=== PATIENT | male | born 1930 | race Caucasian/White ===

== ENCOUNTER 2017-04-01 12:33 | Inpatient (IN) | payer OTHER ==
[2017-04-01] MEDS ORDERED: SODIUM CHLORIDE 500 ML IV STA ×2 (12:59→15:38)
[2017-04-01] MEDS ORDERED: ACETAMINOPHEN 325 MG TABLET (FP) PO ONE (13:11)
--- NOTE | 2017-04-01 13:13 | PDOC ---
History of Present Illness <Corby Bolivar - Last Filed: 04/01/17 18:10> - General History Source: Patient Exam Limitations: No Limitations - History of Present Illness Initial Comments: 04/01/17 18:37 The patient is an 86 year old male, with a significant past medical history of hypertension, hyperlipidemia, enlarged prostate, and heart disease, who presents to the emergency department s/p unwitnessed mechanical fall earlier today. The patient reports he was sitting on the toilet urinating, but after getting up and beginning to walk, he felt alittle dizzy and felt like his legs gave out from under him and he fell and hit his right shoulder on the tub. The patient denies any head trauma or LOC. He reports associated back and shoulder pain. When he got up he reports he felt dizzy. He denies any chest pain, shortness of breath, diaphoresis, palpitations, numbness, or paresthesias. He denies any dysuria, hematuria, frequency, or urgency. He denies any abdominal pain, nausea, vomiting, diarrhea, or constipation. He denies fever, chills, cough, or headache. He denies any recent travel or sick contacts. On 81 mg aspirin daily. Pt endorsed feeling weak for the past few months, so much so that when he walks in his house he needs to use a walker. Allergies: None reported. Past Surgical History: Prostate surgery Social History: Lives at home alone. Former smoker. No ETOH or drug use. PCP: Dr. Marcano Urologist: Dr. Barr <Annie Doty - Last Filed: 04/01/17 18:39> - General Chief Complaint: Injury Stated Complaint: FALL Time Seen by Provider: 04/01/17 12:50 Past History - Past Medical History HTN: Yes Hypercholesterolemia: Yes - Psycho/Social/Smoking Cessation Hx Anxiety: No Suicidal Ideation: No Smoking History: Former smoker Have you smoked in the past 12 months: No Information on smoking cessation initiated: No Hx Alcohol Use: No Drug/Substance Use Hx: No Substance Use Type: None <Corby Bolivar - Last Filed: 04/01/17 18:10> <Annie Doty - Last Filed: 04/01/17 18:39> - Past Medical History Allergies/Adverse Reactions: Allergies Allergy/AdvReac Type Severity Reaction Status Date / Time No Known Allergies Allergy Verified 04/01/17 12:47 Home Medications: Ambulatory Orders Aspirin [ASA -] 81 mg PO DAILY 04/01/17 Atorvastatin Ca [Lipitor] 10 mg PO HS 04/01/17 Cholecalciferol (Vitamin D3) [Vitamin D3 -] 1,000 unit PO DAILY 04/01/17 Metoprolol Tartrate 50 mg PO BID 04/01/17 Quinapril HCl [Accupril] 5 mg PO DAILY 04/01/17 Review of Systems - Review of Systems Able to Perform ROS?: Yes Comments:: 04/01/17 18:38 CONSTITUTIONAL: No reported: Fever, Chills, Diaphoresis, Generalized Weakness, Malaise, Loss of Appetite HEENT: No reported: Rhinorrhea, Nasal Congestion, Throat Pain, Throat Swelling, Difficulty Swallowing, Mouth Swelling, Ear Pain, Eye Pain, Visual Changes CARDIOVASCULAR: No reported: Chest Pain, Syncope, Palpitations, Irregular Heart Rate, Lightheadedness, Peripheral Edema RESPIRATORY: No reported: Cough, Shortness of Breath, SOB with Exertion, Orthopnea, Wheezing , Stridor, Hemoptysis GASTROINTESTINAL: No reported: Abdominal pain, Abdominal Distension, Nausea, Vomiting, Diarrhea, Constipation, Melena, Hematochezia GENITOURINARY: No reported: Dysuria, Frequency, Urgency, Hesitancy, Flank Pain, Genital Pain MUSCULOSKELETAL: Present: +lower and thoracic back pain, +leg weakness No reported: Myalgia, Arthralgia, Joint Swelling, Back pain, Neck Pain SKIN: No reported: Rash, Itching, Pallor HEMEATOLOGIC/IMMUNOLOGIC: No reported: Easy Bleeding, Easy Bruising, Lymphadenopathy, Frequent infections ENDOCRINE: No reported: Unexplained Weight Gain, Unexplained Weight Loss, Heat Intolerance , Cold Intolerance NEUROLOGIC: Present: +leg weakness No reported: Headache, Focal Weakness, Paresthesias, Vertigo, Lightheadedness, Unsteady Gait, Seizure, Mental Status Changes, Incontinence PSYCHIATRIC: No reported: Anxiety, Depression <Annie Doty - Last Filed: 04/01/17 18:39> *Physical Exam - Vital Signs Last Vital Signs Temp Pulse Resp BP Pulse Ox 99.2 F 116 H 20 154/95 96 04/01/17 12:48 04/01/17 12:48 04/01/17 12:48 04/01/17 12:48 04/01/17 12:48 <Osmel,Corby - Last Filed: 04/01/17 18:10> - Vital Signs Last Vital Signs Temp Pulse Resp BP Pulse Ox 99.2 F 116 H 20 154/95 96 04/01/17 12:48 04/01/17 12:48 04/01/17 12:48 04/01/17 12:48 04/01/17 12:48 - Physical Exam Comments: 04/01/17 18:38 GENERAL: The patient is awake, alert, and fully oriented, Nontoxic - in no acute distress. HEAD: Normocephalic, atraumatic.no focal tenderness, no battles sign. EYES: extraocular movements intact, sclera anicteric, conjunctiva clear. ENT: Normal voice, dryt mucous membranes. NECK: Normal range of motion, supple, no tenderness in midline cervical throacic lumbar region LUNGS: Breath sounds equal, clear to auscultation bilaterally. No wheezes, no rhonchi, no rales. HEART: tachycardic ABDOMEN: Soft, nontender, normoactive bowel sounds. No guarding, no rebound. . No CVA tenderness BACK: No focal midline bony cerivical/lumbar tenderness, mild tenderness noted in the mid thoracic approx T8/T9 region and paraspsinally in the L lower back EXTREMITIES: Normal range of motion of all extremities. no edema. No clubbing or cyanosis. No cords, erythema, or tenderness. NEUROLOGICAL: No facial assymetry, Normal speech, moving all 4 extremities spontaneously and symmetrically PSYCH: Normal mood, normal affect. SKIN: Warm, Dry, normal turgor. <Doty,Giomilsy - Last Filed: 04/01/17 18:39> ED Treatment Course - LABORATORY CBC & Chemistry Diagram: 04/01/17 13:45 04/01/17 13:45 - RADIOLOGY Radiology Studies Ordered: Category Date Time Status SPINE-LUMBAR SACRAL [RAD] Stat Radiology 04/01/17 13:11 Ordered SPINE-THORACIC [RAD] Stat Radiology 04/01/17 13:11 Ordered <Osmel,Corby - Last Filed: 04/01/17 18:10> - LABORATORY CBC & Chemistry Diagram: 04/01/17 13:45 04/01/17 13:45 - ADDITIONAL ORDERS Additional order review: Laboratory Results 04/01/17 04/01/17 13:45 13:45 Sodium 141 Potassium 4.6 Chloride 103 Carbon Dioxide 29 Anion Gap 9 BUN 19 H Creatinine 1.5 H Creat Clearance w eGFR 44.59 Random Glucose 110 H Calcium 9.8 Total Bilirubin 0.8 AST 21 ALT 34 Alkaline Phosphatase 80 Creatine Kinase Cancelled 105 Troponin I Cancelled 0.02 Total Protein 7.5 Albumin 3.9 04/01/17 13:45 RBC 4.76 MCV 91.7 MCHC 33.8 RDW 13.9 MPV 8.1 Neutrophils % 84.8 H Lymphocytes % 7.9 L Monocytes % 6.8 Eosinophils % 0.2 Basophils % 0.3 - RADIOLOGY Radiograph Interpretation: 04/01/17 18:23 EXAM: X-Ray Lumbar Spine INTERPRETED BY: Dr. Hendricks REVIEWED BY: Dr. Bolivar IMPRESSION: Degenerative changes with wedging. Vascular calcifications. Normal lordosis. EXAM: X-Ray Thoracic Spine INTERPRETED BY: Dr. Hendricks REVIEWED BY: Dr. Bolivar IMPRESSION: Degenerative changes with wedging. Scoliosis - Medications Given in the ED: ED Medications Discontinued Medications Generic Name Dose Route Start Last Admin Trade Name Freq PRN Reason Stop Dose Admin Acetaminophen 650 mg 04/01/17 13:11 04/01/17 14:08 Tylenol - PO 04/01/17 13:12 650 mg ONCE ONE Administration Sodium Chloride 500 mls @ 500 mls/hr 04/01/17 12:59 04/01/17 14:08 Normal Saline - IV 04/01/17 13:58 500 mls/hr ASDIR STA Administration <Annie Doty - Last Filed: 04/01/17 18:39> Medical Decision Making - Medical Decision Making 04/01/17 13:14 86y M hx of htn, hl, cad presents with fall. The pt states he was well this morning, he went to the bathroom and aftewards stood up and fell, hitting his back on the tub complaining of lower and thoracic back pain w/o associated numbness/tingling weakness. 04/01/17 16:06 pt endorses feeling very weak and has been going on for many months, so much that he only gets around with a walker denies any headache, vertigo, n/v, back pain when attempting to stand, the pt is unabel to ambulate, and even stand unassisted pt seemed unable to stand steadily ?propcioception vs cerbellar? pt does have mild b/l LE weakness (~4/5) and is symmetric. pts finger/nose is a bit unsteady likely due to general weakness vs. cerebellar infarct, normal rapid alternating movements and heel/toe. will obtain CT head to r/o intracranial pathology will likely need admission fo further anagement and possible rehab pt lives alone and is an unsafe discharge his labs notable for luekocytosis and left shift awaiting UA to r/o uti cr noted slightly elevated, likely secondary to dehdration will notifiy dr. marcano for admission his HR is improved, currently 96 onmonitor Case discussed in detail with admitting physician including history, physical exam and ancillary studies. Admitting physician has assumed care for the patient, will follow all pending diagnostics and will complete the evaluation and treatment. A portion of this note was documented by scribe services under my direction. I have reviewed the details of the note, within reason, and agree with the documentation with the following case summary and management plan written by me <Corby Bolivar - Last Filed: 04/01/17 18:10> - Medical Decision Making 04/01/17 16:11 First call placed to Dr. Marcano at 16:12. Awaiting call back. Second call placed to Dr. Marcano at 16:39. Awaiting call back. Case discussed with Dr. Marcano at 16:42. <Annie Doty - Last Filed: 04/01/17 18:39> *DC/Admit/Observation/Transfer - Discharge Dispostion Admit: Yes <Corby Bolivar - Last Filed: 04/01/17 18:10> - Attestations Scribe Attestion: 04/01/17 18:39 Documentation prepared by Annie Doty, acting as medical assisting instructor for Corby Bolivar MD. <Annie Doty - Last Filed: 04/01/17 18:39> Diagnosis at time of Disposition: Weakness, Dehydration, Unable to ambulate - Referrals
[2017-04-01 14:06] LABS: BASOPHIL 0.3 % (0-2.0); EOSINOPHIL 0.2 % (0-4.5); MCHC 33.8 g/dl (32.0-35.9); MEAN CELL VOLUME 91.7 fl (80-96); MEAN PLT VOLUME 8.1 fl (7.5-11.1); NEUTROPHILS 84.8 % (42.8-82.8); PLATELET COUNT 182 K/MM3 (134-434); RDW 13.9 % (11.9-15.9); WHITE BLOOD COUNT 17.2 K/mm3 (4.0-10.0)
[2017-04-01] MEDS ORDERED: ACETAMINOPHEN 325 MG TABLET (FP) ONE (14:09)
[2017-04-01 14:26] LABS: ALBUMIN 3.9 g/dl (3.4-5.0); ANION GAP 9 (8-16); BILIRUBIN,TOTAL 0.8 mg/dL (0.2-1.0); CALCIUM 9.8 mg/dL (8.5-10.1); CO2 29 mmol/L (21-32); CREATININE 1.5 mg/dL (0.7-1.3); GLUCOSE,RANDOM 110 mg/dL (74-106); SGOT/AST 21 U/L (15-37); SGPT/ALT 34 U/L (12-78); TOT PROT 7.5 g/dl (6.4-8.2)
[2017-04-01 14:29] LABS: ALK PHOS 80 U/L (45-117); TROPONIN I 0.02 ng/ml (0.00-0.05)
[2017-04-01 21:28] LABS: URINE APPEARANCE CLEAR; URINE BILIRUBIN NEGATIVE (NEGATIVE); URINE BLOOD NEGATIVE (NEGATIVE); URINE COLOR STRAW; URINE GLUCOSE (UA) NEGATIVE (NEGATIVE); URINE KETONE NEGATIVE (NEGATIVE); URINE LEUK ESTERASE NEGATIVE (NEGATIVE); URINE NITRITE NEGATIVE (NEGATIVE); URINE PROTEIN NEGATIVE (NEGATIVE); URINE UROBILINOGEN NEGATIVE E.U./dl (0.2-1.0)
[2017-04-01] MEDS ORDERED: HEPARIN NA (PORCINE) 5,000 UNITS/ML 1ML VIAL ONE (22:16)
[2017-04-01] MEDS ORDERED: METOPROLOL TARTRATE 50 MG TABLET (FP) ONE (22:16)
[2017-04-01] MEDS: ATORVASTATIN CA 10 MG TABLET (FP) PO SCH (22:29)
[2017-04-01] MEDS: METOPROLOL TARTRATE 50 MG TABLET (FP) PO SCH (22:29)
[2017-04-01] MEDS: HEPARIN NA (PORCINE) 5,000 UNITS/ML 1ML VIAL SQ SCH (22:29)
[2017-04-02 02:08] VITALS: BMI 30.4
[2017-04-02 07:39] LABS: BASOPHIL 0.3 % (0-2.0); EOSINOPHIL 0.7 % (0-4.5); MCHC 34.1 g/dl (32.0-35.9); MEAN CELL VOLUME 90.9 fl (80-96); MEAN PLT VOLUME 8.2 fl (7.5-11.1); NEUTROPHILS 75.5 % (42.8-82.8); PLATELET COUNT 166 K/MM3 (134-434); RDW 13.6 % (11.9-15.9); WHITE BLOOD COUNT 11.4 K/mm3 (4.0-10.0)
[2017-04-02 08:27] LABS: ALBUMIN 3.3 g/dl (3.4-5.0); ANION GAP 6 (8-16); BILIRUBIN,TOTAL 1.2 mg/dL (0.2-1.0); CALCIUM 9.2 mg/dL (8.5-10.1); CHOLESTEROL 174 mg/dL (50-200); CO2 29 mmol/L (21-32); CREATININE 1.3 mg/dL (0.7-1.3); GLUCOSE,RANDOM 92 mg/dL (74-106); SGOT/AST 23 U/L (15-37); SGPT/ALT 28 U/L (12-78)
[2017-04-02 08:28] LABS: ALK PHOS 74 U/L (45-117); LDL CHOLESTEROL (ONLY SJRH) 119 mg/dL (5-100); TOT PROT 6.6 g/dl (6.4-8.2); TROPONIN I 0.09 ng/ml (0.00-0.05)
--- NOTE | 2017-04-02 09:02 | HP ---
Admitting History and Physical - Admission History of Present Illness: 86 year old male, with a significant past medical history of hypertension, hyperlipidemia, enlarged prostate, and heart disease, who presents to the emergency department s/p unwitnessed mechanical fall earlier today. The patient reports he was sitting on the toilet urinating, but after getting up and beginning to walk, he felt dizzy and felt like his legs gave out from under him and he fell and hit his right shoulder on the tub. The patient denies any head trauma or LOC. He reports associated back and shoulder pain. When he got up he reports he felt dizzy. He denies any chest pain, shortness of breath, diaphoresis, palpitations, numbness, or paresthesias. He denies any dysuria, hematuria, frequency, or urgency. He denies any abdominal pain, nausea, vomiting , diarrhea, or constipation. He denies fever, chills, cough, or headache. He denies any recent travel or sick contacts. On 81 mg aspirin daily. Pt endorsed feeling weak for the past few months, so much so that when he walks in his house he needs to use a walker. 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 Cardiovascular: Yes: HTN, Hyperlipdemia - Smoking History Smoking history: Former smoker Have you smoked in the past 12 months: No - Alcohol/Substance Use Hx Alcohol Use: No Home Medications - Allergies Allergies/Adverse Reactions: Allergies Allergy/AdvReac Type Severity Reaction Status Date / Time No Known Allergies Allergy Verified 04/01/17 12:47 - Home Medications Home Medications: Ambulatory Orders Aspirin [ASA -] 81 mg PO DAILY 04/01/17 Atorvastatin Ca [Lipitor] 10 mg PO HS 04/01/17 Cholecalciferol (Vitamin D3) [Vitamin D3 -] 1,000 unit PO DAILY 04/01/17 Metoprolol Tartrate 50 mg PO BID 04/01/17 Quinapril HCl [Accupril] 5 mg PO DAILY 04/01/17 Review of Systems - Review of Systems Cardiovascular: denies: Chest Pain, Edema Respiratory: reports: SOB on Exertion. denies: SOB Gastrointestinal: denies: Abdominal Pain Musculoskeletal: reports: Back Pain, Extremity Pain, Muscle Pain, Muscle Weakness Neurological: reports: Dizziness, Unsteady Gait, Weakness. denies: Change in LOC, Change in Speech Physical Examination Vital Signs: Vital Signs Temperature 98.1 F 04/02/17 08:08 Pulse Rate 79 04/02/17 08:08 Respiratory Rate 20 04/02/17 08:08 Blood Pressure 152/87 04/02/17 08:08 O2 Sat by Pulse Oximetry (%) 96 04/02/17 01:47 Cardiovascular: Yes: Tachycardia, S1, S2 Respiratory: Yes: Regular, CTA Bilaterally Gastrointestinal: Yes: Normal Bowel Sounds, Soft Musculoskeletal: Yes: Back Pain, Muscle Weakness Edema: No Neurological: Yes: Alert, Oriented, Unsteady Gait, Weakness Labs: CBC, BMP 04/02/17 06:45 04/02/17 06:45 Imaging - Results X-ray: Report Reviewed Problem List - Problems (1) Fall Assessment/Plan: DUE TO WEAKNESS POSSIBLE VOLUME DEPLETION R/O ARRHYTHMIA--NOT ON MONITOR HOLTER ECHO CARDIO Code(s): W19.XXXA - UNSPECIFIED FALL, INITIAL ENCOUNTER (2) Tachycardia Assessment/Plan: HYDRATE F/U EKG CARDIO Code(s): R00.0 - TACHYCARDIA, UNSPECIFIED (3) Dehydration Assessment/Plan: IVF MONITOR LABS AND BP Code(s): E86.0 - DEHYDRATION (4) Unable to ambulate Assessment/Plan: PT MRI OF LS NEURO Code(s): R26.2 - DIFFICULTY IN WALKING, NOT ELSEWHERE CLASSIFIED (5) HTN (hypertension) Assessment/Plan: MONITOR ON MEDS Code(s): I10 - ESSENTIAL (PRIMARY) HYPERTENSION (6) Compression fracture Assessment/Plan: MRI OF LS PT NEURO Code(s): CBZ2086 -
[2017-04-02] MEDS: ASPIRIN 81 MG CHEWABLE TABLETS PO SCH (10:22)
[2017-04-02] MEDS: CHOLECALCIFEROL (VITAMIN D3) 1,000 UNIT TABLET (FP) PO SCH (10:22)
[2017-04-02] MEDS: HEPARIN NA (PORCINE) 5,000 UNITS/ML 1ML VIAL SQ SCH ×2 (10:22→21:24)
[2017-04-02] MEDS: METOPROLOL TARTRATE 50 MG TABLET (FP) PO SCH ×2 (10:22→21:24)
[2017-04-02] MEDS: QUINAPRIL HCL 5 MG TABLET (FP) PO SCH (10:55)
--- NOTE | 2017-04-02 11:17 | EKG ---
Test Reason : Blood Pressure : / mmHG Vent. Rate : 117 BPM Atrial Rate : 117 BPM P-R Int : 146 ms QRS Dur : 078 ms QT Int : 310 ms P-R-T Axes : 042 -22 -15 degrees QTc Int : 432 ms POOR DATA QUALITY, INTERPRETATION MAY BE ADVERSELY AFFECTED SINUS TACHYCARDIA MINIMAL VOLTAGE CRITERIA FOR LVH, MAY BE NORMAL VARIANT BORDERLINE ECG WHEN COMPARED WITH ECG OF 30-APR-2000 08:56, VENT. RATE HAS INCREASED BY 52 BPM QRS DURATION HAS DECREASED Confirmed by URI DANG, AMEYA ([id number]) on 04/02/2017 11:16:56 AM Referred By: Confirmed By:AMEYA GREWAL MD
--- NOTE | 2017-04-02 12:32 | CONSULT ---
Consult - text type - Consultation Consultation Note: NEUROLOGY CONSULTATION is greatly appreciated: This 86 yo RH single man lives alone with his sister in the same building. 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 PMH of HTN, Chol on metoprolol, quinipril and atorvastatin. > 3 mos of progressive decline in gait and balance. Multiple falls. Memory decline. Urinary urgency without incontinence. Notes tendency to fall backwards. Yesterday admitted after falling in the bathroom after urinating (which he does seated due to the balance issues). Afterwards he got up, turned, and fell backwards, without lightheadedness or other prodromal symptoms, striking his head on the tub without LOC CT of head (reviewed): Mild atrophy. Enlarged ventricles with periventricular edema. Calcification of both basal ganglia. Still with mild Headache. No nausea. No neck or LB Pain. SANTA: No evidence of external head trauma. No Chaney's signs or orbital ecchymoses. No bruits. Cor: Reg. In a diaper with fecal staining. Decreased Neck ROM. NEURO: Awake, alert, Ox 3. Reverses well but recalls only 1 of 3 @ 3 mins. CN II-XII: Normal without nystagmus. Motor: No drift or tremor. Min B/L cogwheeling. Diffusely reduced reflexes. Normal strength. Downgoing toes. Coord: NO FTN Dystaxia Sensory: Min. reduced vibration in feet. Gait: Stands with assistance. Frozen and wide-based. Striking Retropulsion, even in seated posture! 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 Mild extrapyramidal features. SUGGEST: MRI of brain with CSF flow study. MRI of Cervical spine (C-). Check B12, Copper, Zinc levels. Possible LP (30-40 cc of CSF removed) followed by walking test. Neurosurgical consultation. Trial of L-Dopa. Thank you very much, Mal Voss MD
--- NOTE | 2017-04-02 13:28 | CON.CARD ---
Consult Consult Specialty:: Cardiology Referred by:: jeet Reason for Consultation:: fall - History of Present Illness Chief Complaint: fall History of Present Illness: 86 year old male, with a significant past medical history of hypertension, hyperlipidemia, enlarged prostate, and CAD s/p stent in the past who presents after fall at home. The patient reports he was sitting on the toilet urinating , but after getting up and beginning to walk, he felt dizzy and felt like his legs gave out from under him and he fell and hit his right shoulder on the tub. Denies any LOC. No chest pain or palpitations. No acute sob. No diaphoresis. Believes that since his prostate procedure he has been feeling week and off balance with gait issues and requires a walker. 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 Cardio/Vascular: Yes: HTN, Hyperlipdemia - Alcohol/Substance Use Hx Alcohol Use: No - Smoking History Smoking history: Former smoker Have you smoked in the past 12 months: No Home Medications - Allergies Allergies/Adverse Reactions: Allergies Allergy/AdvReac Type Severity Reaction Status Date / Time No Known Allergies Allergy Verified 04/01/17 12:47 - Home Medications Home Medications: Ambulatory Orders Aspirin [ASA -] 81 mg PO DAILY 04/01/17 Atorvastatin Ca [Lipitor] 10 mg PO HS 04/01/17 Cholecalciferol (Vitamin D3) [Vitamin D3 -] 1,000 unit PO DAILY 04/01/17 Metoprolol Tartrate 50 mg PO BID 04/01/17 Quinapril HCl [Accupril] 5 mg PO DAILY 04/01/17 Vital Signs: Vital Signs Temperature 98.1 F 04/02/17 08:08 Pulse Rate 79 04/02/17 08:08 Respiratory Rate 20 04/02/17 08:08 Blood Pressure 152/87 04/02/17 08:08 O2 Sat by Pulse Oximetry (%) 96 04/02/17 01:47 Constitutional: Yes: No Distress Neck: Yes: Supple Respiratory: Yes: CTA Bilaterally Gastrointestinal: Yes: Normal Bowel Sounds, Soft Cardiovascular: Yes: Regular Rate and Rhythm JVD: No Carotid Bruit: No Heart Sounds: Yes: S1, S2 Murmur: No: Systolic Murmur Edema: No - Other Data Labs, Other Data: CBC, BMP 04/02/17 06:45 04/02/17 06:45 Troponin, BNP 04/01/17 04/02/17 20:56 06:45 Troponin I 0.05 D 0.09 H D Troponin, BNP 04/01/17 04/02/17 20:56 06:45 Troponin I 0.05 D 0.09 H D Imaging - Results Cat Scan: Report Reviewed EKG: Image Reviewed Problem List - Problems (1) Fall Code(s): W19.XXXA - UNSPECIFIED FALL, INITIAL ENCOUNTER (2) HTN (hypertension) Code(s): I10 - ESSENTIAL (PRIMARY) HYPERTENSION Assessment/Plan 86 year old male, with a significant past medical history of hypertension, hyperlipidemia, enlarged prostate, and CAD s/p stent in the past who presents after fall at home. The patient reports he was sitting on the toilet urinating , but after getting up and beginning to walk, he felt dizzy and felt like his legs gave out from under him and he fell and hit his right shoulder on the tub. Denies any LOC. No chest pain or palpitations. No acute sob. No diaphoresis. Believes that since his prostate procedure he has been feeling week and off balance with gait issues and requires a walker. EKG: sinus tachycardia with normal axis and normal st segments. 1) Falls/weakness -Symptoms do not appear cardiac in nature but agree with holter monitor to r/o arrhythmia Echocardiogram to confirm LVEF and valve anatomy -Check orthostatics F/u neuro recommendations as planned for work up for NPH 2) CAD h/o stent in past Asymptomatic Continue aspirin if no contraindication beta thee and statin
--- NOTE | 2017-04-02 14:49 | EKG ---
Test Reason : Blood Pressure : / mmHG Vent. Rate : 092 BPM Atrial Rate : 092 BPM P-R Int : 136 ms QRS Dur : 082 ms QT Int : 350 ms P-R-T Axes : 045 -22 -23 degrees QTc Int : 432 ms NORMAL SINUS RHYTHM NORMAL ECG WHEN COMPARED WITH ECG OF 01-APR-2017 12:52, NO SIGNIFICANT CHANGE WAS FOUND Confirmed by AMEYA GREWAL MD ([id number]) on 04/02/2017 2:49:17 PM Referred By: Yvette GALDAMEZ Confirmed By:AMEYA GREWAL MD
--- NOTE | 2017-04-02 16:13 | CONSULT ---
Consult - text type - Consultation Consultation Note: ENT consult. CC 4 month h/o imbalance 86 yo tracee muniz 4 month h/o imbalance which he notices most when he is trying the walk with h/o multiple falls.Yesterday admitted after falling in the bathroom after urinating (which he does seated due to the balance issues). He reports having to hold on to the wall while walking. of note, afterwards he got up, turned, and fell backwards, without lightheadedness and hit his head on the tub without LOC. He reports sometimes turning his head worsens the imbalance. He denies any vertigo, otalgia, otorrhea, hearing loss, otorrhea. + Memory decline. Urinary urgency without incontinence. Still with mild Headache. No nausea. No neck or LB Pain. PMH of HTN, Chol Meds:metoprolol, quinipril and atorvastatin. Yesterday admitted after falling in the bathroom after urinating (which he does seated due to the balance issues). PE: Awake, alert , comfortable VSS afeb EOMI PERRLA Awake, alert, Ox 3. CN II-XII: wnl Ears auricles wnl. EACs - cerumen impaction bilaterally removed with curette and suction (7 nauruan). Eacs no inflammation. Tms then visible TM intact. no effusion. NC: mucosa wnl OC/OP; wnl neck wnl IMP: 1. cerumen impaction- removed bilaterally. no qtios 2. Dizziness- more imbalance. no vertigo. Normal ear exam. Hisotry more suggestive of neurological etiology. Audiogram as out patient. Appreciate neurology consult. Patient can follow with ENT - Dr. Hunter who he has seen in the past but many years ago.
[2017-04-02] MEDS: ATORVASTATIN CA 10 MG TABLET (FP) PO SCH (21:24)
--- NOTE | 2017-04-03 08:53 | PN ---
Progress Note (short form) - Note Progress Note: NEUROSURGERY CONSULT DICTATED Pt examined Ct reviewed Chart reviewed 6 month h/o progressive ataxia with h/o multiple falls. After falling in the bathroom after urinating and getting up. He reports having to hold on to the wall while walking. Denies lightheadedness but did hit his head on the tub without LOC. Turning his head worsens the imbalance at times. He denies any vertigo, otalgia, otorrhea, hearing loss. +Memory decline. Urinary urgency without incontinence. No headache, nausea/vomiting, sz. No neck or LBP. 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
--- NOTE | 2017-04-03 09:06 | PN ---
Progress Note, Physician History of Present Illness: WEAKNESS UNABLE TO STAND OR WALK - Current Medication List Current Medications: Active Medications Aspirin (Asa -) 81 mg PO DAILY [facility] Last Admin: 04/02/17 10:22 Dose: 81 mg Atorvastatin Calcium (Lipitor -) 10 mg PO HS [facility] Last Admin: 04/02/17 21:24 Dose: 10 mg Cholecalciferol (Vitamin D3 -) 1,000 unit PO DAILY [facility] Last Admin: 04/02/17 10:22 Dose: 1,000 unit Heparin Sodium (Porcine) (Heparin -) 5,000 unit SQ BID [facility] Last Admin: 04/02/17 21:24 Dose: 5,000 unit Metoprolol Tartrate (Lopressor -) 50 mg PO BID [facility] Last Admin: 04/02/17 21:24 Dose: 50 mg Quinapril HCl (Accupril -) 5 mg PO DAILY [facility] Last Admin: 04/02/17 10:55 Dose: 5 mg - Objective Vital Signs: Vital Signs Temperature 98.0 F 04/03/17 08:49 Pulse Rate 76 04/03/17 08:49 Respiratory Rate 20 04/03/17 08:49 Blood Pressure 144/81 04/03/17 08:49 O2 Sat by Pulse Oximetry (%) 95 04/02/17 21:29 Cardiovascular: Yes: Regular Rate and Rhythm Respiratory: Yes: Regular, CTA Bilaterally Gastrointestinal: Yes: Normal Bowel Sounds, Soft Labs: CBC, BMP 04/02/17 06:45 04/02/17 06:45 Problem List - Problems (1) Fall Assessment/Plan: DUE TO WEAKNESS POSSIBLE VOLUME DEPLETION R/O ARRHYTHMIA--NOT ON MONITOR HOLTER ECHO CARDIO NOTED--AWAIT W/U Code(s): W19.XXXA - UNSPECIFIED FALL, INITIAL ENCOUNTER (2) Tachycardia Assessment/Plan: HYDRATE F/U EKG CARDIO NOTED Code(s): R00.0 - TACHYCARDIA, UNSPECIFIED (3) Dehydration Code(s): E86.0 - DEHYDRATION (4) Unable to ambulate Assessment/Plan: PT MRI OF LS NEURO Code(s): R26.2 - DIFFICULTY IN WALKING, NOT ELSEWHERE CLASSIFIED (5) HTN (hypertension) Assessment/Plan: MONITOR ON MEDS Code(s): I10 - ESSENTIAL (PRIMARY) HYPERTENSION (6) Compression fracture Assessment/Plan: MRI OF LS PT NEURO Code(s): OLP6305 - (7) NPH (normal pressure hydrocephalus) Assessment/Plan: MRI N/S CONSULT MAY NEED TAP Code(s): G91.2 - (IDIOPATHIC) NORMAL PRESSURE HYDROCEPHALUS
[2017-04-03] MEDS: ASPIRIN 81 MG CHEWABLE TABLETS PO SCH (09:41)
[2017-04-03] MEDS: QUINAPRIL HCL 5 MG TABLET (FP) PO SCH (09:41)
[2017-04-03] MEDS: CHOLECALCIFEROL (VITAMIN D3) 1,000 UNIT TABLET (FP) PO SCH (09:41)
[2017-04-03] MEDS: HEPARIN NA (PORCINE) 5,000 UNITS/ML 1ML VIAL SQ SCH ×2 (09:42→21:39)
[2017-04-03] MEDS: METOPROLOL TARTRATE 50 MG TABLET (FP) PO SCH ×2 (09:42→21:39)
--- NOTE | 2017-04-03 19:27 | CONS ---
DATE OF CONSULTATION: 04/03/2017 CHIEF COMPLAINT: Progressive ataxia. HISTORY OF PRESENT ILLNESS: The patient is an 86-year-old right-handed male with a history of hypertension, hypercholesterolemia, BPH, and CAD, who complains of 6- month history of progressive ataxia. He has been falling more frequently. He stated that he was sitting on his toilet urinating a couple days ago, and felt dizzy when he tried to get up and fell and hit his head. He denies loss of consciousness. He also hit his right shoulder on the bathtub. There was no associated nausea or vomiting. The patient stated that his memory has been somewhat poorer than previously, but not severely. He did describe some urinary hesitancy, which is likely related to the BPH, as well as some urinary dribbling and incontinence. His walking has gotten progressively worse over the last 6 months. He feels generalized weakness and only minimal numbness and tingling in his extremities. He denies being diabetic. Past medical history is significant for hypercholesterolemia, hypertension, coronary artery disease, PBH. Medications include quinapril, subcutaneous heparin, Lopressor, Lipitor, baby aspirin, and vd3. There is no known drug allergy. Family history is noncontributory. In terms of social history, he does not smoke or drink. He is retired. He lives at home alone. Review of systems is otherwise negative for other major cardiovascular, pulmonary, gastrointestinal, genitourinary, endocrinological, neurological, oncological, or head and neck problems. He has no other significant constitutional symptoms. He denies fevers or chills or any recent infections. PHYSICAL EXAMINATION: Vital Signs: His T-max is 99. Blood pressure is 144/81. His pulse rate is 76. O2 saturation is 95% on room air. HEENT: Normocephalic, atraumatic. Neck: Supple with no carotid bruit. Coronary: Regular rhythm. Lungs: Clear bilaterally. Abdomen: Benign. Extremities: No signs of DVT. Neurologic: He is awake and alert, oriented x3. Cranial nerves examination is intact, 2-12, except for decreased sensorineural hearing. Tongue also slightly deviated towards the right. Motor examination shows 4+ to 5/5 without a drift. Sensory examination shows mildly decreased distal vibratory sensation in lower extremity. Deep tendon reflexes are 1+ throughout. He has an upgoing toe on the right. Gait is not attempted because of his fairly significant instability. It is reported that he cannot take more than a couple steps without significant balance issues. Laboratory examination shows a white blood cell count initially to be 17.2 and it is now 11.4, hemoglobin 13.8, platelet count 166,000. Serum sodium is 140, potassium is 4.3, BUN 18, creatinine 1.3. Troponin is 0.09. Urinalysis is negative. CT scan of the head demonstrated moderate ventricular dilatation in the 3rd and lateral ventricle. There is no transependymal CSF flow. There is no brain edema. There is calcification of bilateral basal ganglia as well as the choroid plexus and the 4th ventricle. There is no acute bleed or fracture. Lumbar spine x-ray demonstrated degenerative disease with degenerative disk space narrowing and facet arthrosis. There is vascular calcification. There is no acute fracture. T-spine x-ray demonstrated degenerative spondylosis without obvious acute fracture. There is no significant lytic lesion or subluxation. IMPRESSION: 1. 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 2. Hypertension/coronary artery disease. 3. Hypercholesterolemia. RECOMMENDATION: The patient presents with 6-month history of progressive ataxia. He also had some urinary hesitancy, which could be related to his BPH. The urinary incontinence could be either from the BPH or the ventriculomegaly. He also has some memory disturbance, which generally comes last in face of NPH. The patient does have baseline hypertension and coronary artery disease. His most recent troponin is 0.09. He has prematurely taken off his Holter monitoring devices. It does appear that the patient has CSF fluid dynamic imbalance. Brain MRI is recommended per Dr. Voss already. At some point, diagnostic lumbar puncture with withdrawal of approximately 20 to 30 mL of CSF may be helpful in confirming the diagnosis. If his gait improves significantly with CSF withdrawal, he may be a candidate for a ventriculoperitoneal shunt in the future. He obviously will need to be off aspirin for the shunt procedure for 7 days, and to be in stable cardiac condition for the shunt procedure to be considered. There is obviously associated significant medical risk in this 86-year-old with preexisting cardiac disease to undergo general anesthesia and to have the shunt placed. The additional risks of the shunt procedure include but are not limited to bleeding, infection, subdural hematoma, seizure, coma, , as well as risk of general anesthesia, as well as injury to the pulmonary parenchyma as well as abdominal viscera. The patient understands the pros and cons of the treatment approaches. It is still too early to make the surgical recommendation at this time, even though his symptoms fulfill the classical triads of normal pressure hydrocephalus. All questions were answered at the bedside. RAMONA AHN M.D. ELISABET/[id number] MTDD
[2017-04-03] MEDS ORDERED: HEPARIN NA (PORCINE) 5,000 UNITS/ML 1ML VIAL ONE (21:37)
[2017-04-03] MEDS: ATORVASTATIN CA 10 MG TABLET (FP) PO SCH (21:39)
--- NOTE | 2017-04-04 09:34 | PN ---
Progress Note (short form) - Note Progress Note: NEUROSURGERY No new complaint Had breakfast Recalls seeing me yesterday AM PE: AF, VSS Pt able to sit up and remain seated with slight assistance Also stood up with walker and took a couple keon steps sideways Working with PT now at bedside HEENT- NC/AT; Neck- supple; Cor- RRR; Lungs- CTA; Abd- benign; Ext- no sign of DVT A/A/Ox3 CN- decreased hearing B; mild tongue deviation to R; Motor- 4+-5/5 without drift ; Sensation- mildly decreased LE vibratory sensation; DTR- 1+, R toe upgoing WBC 11.4 yesterday; BUN18, Cr 1.[address]: moderate dilatation of lateral and third ventricle without transependymal flow/edema; calcified choroid plexus, calcified BG Brain MRI: mild-moderate atrophy, moderate ventriculomegaly, mild periventricular T2 hyperintensity C spine MRI- spondylosis, DDD C3-4, C4-5, C5-6, near complete autofusion C5-6, C4-5 spondylosis with mild thecal sac impingement L > R; facet hypertrophy Symptom triads of urinary incontinence, ataxia > memory difficulty c/w NPH Neurology f/u and possible diagnostic/therapeutic LP for confirmation and routine CSF sampling If + improvement after CSF sampling/withdrawal could consider VPS (potential risks and benefits d/w pt; also increased cardiovascular risks secondary to prior cardiac history and age) Need to be off ASA for at least 7 days prior any potential shunt procedure DVT prophylaxis given immobility Encouraged ROM and strengthening exercises even when in bed Avoid pressure on low back/sacrum All questions answered
[2017-04-04] MEDS: HEPARIN NA (PORCINE) 5,000 UNITS/ML 1ML VIAL SQ SCH ×2 (09:40→21:09)
[2017-04-04] MEDS: ASPIRIN 81 MG CHEWABLE TABLETS PO SCH (09:40)
[2017-04-04] MEDS: QUINAPRIL HCL 5 MG TABLET (FP) PO SCH (09:40)
[2017-04-04] MEDS: CHOLECALCIFEROL (VITAMIN D3) 1,000 UNIT TABLET (FP) PO SCH (09:41)
[2017-04-04] MEDS: METOPROLOL TARTRATE 50 MG TABLET (FP) PO SCH ×2 (09:41→21:09)
--- NOTE | 2017-04-04 14:14 | CONSULT ---
Consult Consult Specialty:: PM&R Reason for Consultation:: gait abnormality - History of Present Illness Chief Complaint: off balance History of Present Illness: This is an 86 year old man with a medical history of HTN, HLD, heart disease, enlarged prostate, who presented to the ED 04/01/17 following a fall when he became dizzy after urinating. He reports his imbalance has been worsening the past month, to the point where he has begun using a cane and walker. XR lumbar and thoracic spine showed degenerative changes with wedging and scoliosis. CT head showed dilated lateral and 3rd ventricle, similar to NPH. MRI brain showed ventricular dilatation as well, central atrophy versus NPH. MRI cervical spine 04/03/17 showed mild C5-6 central stenosis with multilevel DDD/ DJD. He was seen by Cardiology for possible arrhythmia, who felt fall was more likely neurological in nature but recommended cardiac work-up to r/o cardiac source including Holter and echo. ENT consult also felt falls were neurological in nature, and recommended outpatient ENT f/u. Neuro consult attributed symptoms to hydrocephalus/ NPH vs parkinsonism, who recommended further work-up including LP, blood work and meds. Neurosurgery consult agreed with LP. He was seen by PT, and on 04/04/17 he was Minimum Assist in Transfers, and ambulated 4 lateral steps along bed. Physiatry is being consulted for further recommendations. 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) Home Medications - Allergies Allergies/Adverse Reactions: Allergies Allergy/AdvReac Type Severity Reaction Status Date / Time No Known Allergies Allergy Verified 04/01/17 12:47 - Home Medications Home Medications: Ambulatory Orders Aspirin [ASA -] 81 mg PO DAILY 04/01/17 Atorvastatin Ca [Lipitor] 10 mg PO HS 04/01/17 Cholecalciferol (Vitamin D3) [Vitamin D3 -] 1,000 unit PO DAILY 04/01/17 Metoprolol Tartrate 50 mg PO BID 04/01/17 Quinapril HCl [Accupril] 5 mg PO DAILY 04/01/17 Review of Systems Findings/Remarks: denies fevers, chills, changes in vision/ hearing/ mood, SOB, abdominal pain, nausea, vomiting, constipation, numbness/ paresthesias, dysuria. He notes an episode of CP overnight now resolved, constipation, and LBP since fall. Physical Exam Vital Signs: Vital Signs Temperature 98.8 F 04/04/17 05:59 Pulse Rate 72 04/04/17 05:59 Respiratory Rate 20 04/04/17 05:59 Blood Pressure 141/78 04/04/17 05:59 O2 Sat by Pulse Oximetry (%) 96 04/03/17 21:00 Musculoskeletal: Yes: Other (General: calm elderly M sitting in bed NAD, AAO x3 HEENT: NCAT EOMI OP clear N/M: CN II- XII grossly Intact; B shoulder flexion to 130 degrees, 4/5 BUE, 4+/5 BLE; Pinprick Intact BUE/ BLE, diffusely hyporeflexic BUE/ BLE, negative B Adams's sign, B plantars equivocal ; finger to nose intact BUE but slower LUE Extremities: no BLE pitting edema, no B calf tenderness) Labs: CBC, BMP 04/02/17 06:45 04/02/17 06:45 Imaging - Results X-ray: Pending (as per HPI), Report Reviewed Cat Scan: Report Reviewed (CT head as per HPI) MRI: Report Reviewed (MRI brain/ c-spine as per HPI) Assessment/Plan Impression: 1) Deficits mobility/ ADLs 2) Deconditioning 3) Gait abnormality 4) Possible hydrocephalus vs NPH 5) R/o arrhythmia 6) 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 This was d/w pt and family (niece and her ) who agree. Thank you for this referral.
--- NOTE | 2017-04-04 15:02 | HOL ---
Hook-up date: 2017-04-02 12:44:00 Duration: 15:04:00 Test Indications: FALL Medications: 84220 QRS complexes 71 Ventricular ectopics which represent <1 % of total QRS comp. 289 Supraventricular ectopics which represent <1 % of total QRS comp. * Paced QRS complexs which represent % of total QRS comp. 3 % of Time Classified as Noise VENTRICULAR ECTOPY 67 Isolated 0 Bigeminal Cycles 2 Couplets 0 Runs 0 Beats in Runs * Beats LONGEST at * BPM at :: -- * Beats FASTEST at * BPM at :: -- SUPRAVENTRICULAR ECTOPY 240 Isolated 13 Couplets 4 Runs 23 Beats in Runs 10 Beats LONGEST at 176 BPM at 21:41:31 2017-04-02 10 Beats FASTEST at 176 BPM at 21:41:31 2017-04-02 HEART RATES 61 MIN at 23:04:19 2017-04-02 82 AVG 115 MAX at 18:28:36 2017-04-02 LONGEST RR 1.184 secs at 23:22:10 2017-04-02 PATIENT REMOVED HOLTER, 15 HOURS WERE RECORDED SCANNED BY: [employer] 04/03/17 1. BASELINE RHYTHM APPEARS TO BE SINUS RHYTHM WITH AVERAGE HR OF 82 BPM. RATES VARIED FROM 61 TO 115 BPM. 2. OCCASIONAL VENTRICULAR ECTOPIES WITH PVCS 3. OCCASIONAL ATRIAL ECTOPIES WITH APCS, ATRIAL COUPLETS NA D10 BEAT RUN OF SVT LIKELY ATRIAL TACHYCARDIA 4. NO SIGNIFICANT ST OR T WAVE ABNORMALITIES 5. DIARY WAS NOT SUBMITTED Confirmed by BENNETT DANG, ANAI ([id number]) on 04/04/2017 3:01:57 PM Referred By: Yvette PRECIADO Overread By: ANAI GUAJARDO MD
--- NOTE | 2017-04-04 15:06 | PN ---
Progress Note, Physician Chief Complaint: no complaints - Current Medication List Current Medications: Active Medications Aspirin (Asa -) 81 mg PO DAILY [facility] Last Admin: 04/04/17 09:40 Dose: 81 mg Atorvastatin Calcium (Lipitor -) 10 mg PO HS [facility] Last Admin: 04/03/17 21:39 Dose: 10 mg Cholecalciferol (Vitamin D3 -) 1,000 unit PO DAILY [facility] Last Admin: 04/04/17 09:41 Dose: 1,000 unit Heparin Sodium (Porcine) (Heparin -) 5,000 unit SQ BID [facility] Last Admin: 04/04/17 09:40 Dose: 5,000 unit Metoprolol Tartrate (Lopressor -) 50 mg PO BID [facility] Last Admin: 04/04/17 09:41 Dose: 50 mg Quinapril HCl (Accupril -) 5 mg PO DAILY [facility] Last Admin: 04/04/17 09:40 Dose: 5 mg - Objective Vital Signs: Vital Signs Temperature 99.3 F 04/04/17 14:19 Pulse Rate 73 04/04/17 14:19 Respiratory Rate 20 04/04/17 05:59 Blood Pressure 127/81 04/04/17 14:19 O2 Sat by Pulse Oximetry (%) 96 04/03/17 21:00 Constitutional: Yes: Well Nourished, No Distress Eyes: Yes: Conjunctiva Clear, EOM Intact HENT: Yes: Atraumatic, Normocephalic Neck: Yes: Supple, Trachea Midline Cardiovascular: Yes: Regular Rate and Rhythm Respiratory: Yes: Regular, CTA Bilaterally Gastrointestinal: Yes: WNL, Normal Bowel Sounds Extremities: Yes: WNL Edema: No Peripheral Pulses WNL: Yes Labs: CBC, BMP 04/02/17 06:45 04/02/17 06:45 Problem List - Problems (1) HTN (hypertension) Assessment/Plan: stable on medications. Code(s): I10 - ESSENTIAL (PRIMARY) HYPERTENSION Qualifiers: Hypertension type: essential hypertension Qualified Code(s): I10 - Essential (primary) hypertension (2) Fall Assessment/Plan: 1) Falls/weakness -Symptoms do not appear cardiac in nature but agree with holter monitor to r/o arrhythmia Echocardiogram to confirm LVEF and valve anatomy results pending. -Check orthostatics F/u neuro recommendations as planned for work up for NPH Code(s): W19.XXXA - UNSPECIFIED FALL, INITIAL ENCOUNTER Qualifiers: Encounter type: subsequent encounter Qualified Code(s): W19.XXXD - Unspecified fall, subsequent encounter (3) CAD (coronary artery disease), [place] coronary artery Assessment/Plan: h/o stent in past Asymptomatic Continue aspirin if no contraindication beta thee and statin Code(s): I25.10 - ATHSCL HEART DISEASE OF [place] CORONARY ARTERY W/O ANG PCTRS Qualifiers: [place] vs. transplanted heart: [place] heart Associated angina: without angina Qualified Code(s): I25.10 - Atherosclerotic heart disease of [place] coronary artery without angina pectoris
--- NOTE | 2017-04-04 15:47 | DS ---
Physical Examination Vital Signs: Vital Signs Temperature 99.3 F 04/04/17 14:19 Pulse Rate 73 04/04/17 14:19 Respiratory Rate 20 04/04/17 05:59 Blood Pressure 127/81 04/04/17 14:19 O2 Sat by Pulse Oximetry (%) 96 04/03/17 21:00 Constitutional: Yes: Calm Neck: Yes: Trachea Midline Cardiovascular: Yes: Regular Rate and Rhythm Respiratory: Yes: CTA Bilaterally Labs: CBC, BMP 04/02/17 06:45 04/02/17 06:45 Discharge Summary Reason For Visit: UNABLE TO WALK/DEHYDRATION Current Active Problems CAD (coronary artery disease), [place] coronary artery (Acute) Compression fracture (Acute) Dehydration (Acute) Fall (Acute) HTN (hypertension) (Acute) NPH (normal pressure hydrocephalus) (Acute) Tachycardia (Acute) Unable to ambulate (Acute) Weakness (Acute) Hospital Course: This is an 86 year old man with a medical history of HTN, HLD, heart disease, enlarged prostate, who presented to the ED 04/01/17 following a fall when he became dizzy after urinating. He reports his imbalance has been worsening the past month, to the point where he has begun using a cane and walker. XR lumbar and thoracic spine showed degenerative changes with wedging and scoliosis. CT head showed dilated lateral and 3rd ventricle, similar to NPH. MRI brain showed ventricular dilatation as well, central atrophy versus NPH. MRI cervical spine 04/03/17 showed mild C5-6 central stenosis with multilevel DDD/ DJD. He was seen by Cardiology for possible arrhythmia, who felt fall was more likely neurological in nature but recommended cardiac work-up to r/o cardiac source including Holter and echo. ENT consult also felt falls were neurological in nature, and recommended outpatient ENT f/u. Neuro consult attributed symptoms to hydrocephalus/ NPH vs parkinsonism, who recommended further work-up including LP, blood work and meds. Neurosurgery consult agreed with LP. He was seen by PT, and on 04/04/17 he was Minimum Assist in Transfers, and ambulated 4 lateral steps along bed. Physical therapy is being consulted for further recommendations. 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) in hospital seen by neuro and [facility] MRI of brain shows cerebral atrophy and MRI of c spine and LS spine done c5-c6 mild central canal stenosis seen by PMR recommends rehab echo normal holter unremarkable Condition: Guarded - Instructions Referrals: Abel Bocanegra MD [Primary Care Provider] - Disposition: LONG-TERM FACILITY - Home Medications Comprehensive Discharge Medication List: Ambulatory Orders Aspirin [ASA -] 81 mg PO DAILY 04/01/17 Atorvastatin Ca [Lipitor] 10 mg PO HS 04/01/17 Cholecalciferol (Vitamin D3) [Vitamin D3 -] 1,000 unit PO DAILY 04/01/17 Metoprolol Tartrate 50 mg PO BID 04/01/17 Quinapril HCl [Accupril] 5 mg PO DAILY 04/01/17
--- NOTE | 2017-04-04 15:51 | PN ---
Progress Note, Physician Chief Complaint: gone for MRI of LS spine seen after MRI patient complaining of back pain not able to ambulate - Current Medication List Current Medications: Active Medications Aspirin (Asa -) 81 mg PO DAILY [facility] Last Admin: 04/04/17 09:40 Dose: 81 mg Atorvastatin Calcium (Lipitor -) 10 mg PO HS [facility] Last Admin: 04/03/17 21:39 Dose: 10 mg Cholecalciferol (Vitamin D3 -) 1,000 unit PO DAILY [facility] Last Admin: 04/04/17 09:41 Dose: 1,000 unit Heparin Sodium (Porcine) (Heparin -) 5,000 unit SQ BID [facility] Last Admin: 04/04/17 09:40 Dose: 5,000 unit Metoprolol Tartrate (Lopressor -) 50 mg PO BID [facility] Last Admin: 04/04/17 09:41 Dose: 50 mg Quinapril HCl (Accupril -) 5 mg PO DAILY [facility] Last Admin: 04/04/17 09:40 Dose: 5 mg - Objective Vital Signs: Vital Signs Temperature 99.3 F 04/04/17 14:19 Pulse Rate 73 04/04/17 14:19 Respiratory Rate 20 04/04/17 05:59 Blood Pressure 127/81 04/04/17 14:19 O2 Sat by Pulse Oximetry (%) 96 04/03/17 21:00 Constitutional: Yes: Calm Neck: Yes: Trachea Midline Cardiovascular: Yes: S1, S2 Respiratory: Yes: CTA Bilaterally Gastrointestinal: Yes: Soft Neurological: Yes: Alert, Oriented Labs: CBC, BMP 04/02/17 06:45 04/02/17 06:45 Problem List - Problems (1) Unable to ambulate Assessment/Plan: MRI of LS spine done awaitng results PMR eval done needs snf for rehab pending MRI result Code(s): R26.2 - DIFFICULTY IN WALKING, NOT ELSEWHERE CLASSIFIED (2) CAD (coronary artery disease), [place] coronary artery Assessment/Plan: asa, statin BB echo and holter normal Code(s): I25.10 - ATHSCL HEART DISEASE OF [place] CORONARY ARTERY W/O ANG PCTRS Qualifiers: [place] vs. transplanted heart: [place] heart Associated angina: without angina Qualified Code(s): I25.10 - Atherosclerotic heart disease of [place] coronary artery without angina pectoris (3) NPH (normal pressure hydrocephalus) Assessment/Plan: mri of brain noted neuro FU appreciate [facility]CO Code(s): G91.2 - (IDIOPATHIC) NORMAL PRESSURE HYDROCEPHALUS
[2017-04-04] MEDS: ATORVASTATIN CA 10 MG TABLET (FP) PO SCH (21:09)
[2017-04-05] MEDS: QUINAPRIL HCL 5 MG TABLET (FP) PO SCH (09:29)
[2017-04-05] MEDS: CHOLECALCIFEROL (VITAMIN D3) 1,000 UNIT TABLET (FP) PO SCH (09:29)
[2017-04-05] MEDS: HEPARIN NA (PORCINE) 5,000 UNITS/ML 1ML VIAL SQ SCH ×2 (09:29→21:29)
[2017-04-05] MEDS: ASPIRIN 81 MG CHEWABLE TABLETS PO SCH (09:29)
[2017-04-05] MEDS: METOPROLOL TARTRATE 50 MG TABLET (FP) PO SCH ×2 (09:29→21:29)
--- NOTE | 2017-04-05 09:55 | PN ---
Progress Note, Physician History of Present Illness: WEAKNESS UNABLE TO STAND OR WALK - Current Medication List Current Medications: Active Medications Aspirin (Asa -) 81 mg PO DAILY [facility] Last Admin: 04/05/17 09:29 Dose: 81 mg Atorvastatin Calcium (Lipitor -) 10 mg PO HS [facility] Last Admin: 04/04/17 21:09 Dose: 10 mg Cholecalciferol (Vitamin D3 -) 1,000 unit PO DAILY [facility] Last Admin: 04/05/17 09:29 Dose: 1,000 unit Heparin Sodium (Porcine) (Heparin -) 5,000 unit SQ BID [facility] Last Admin: 04/05/17 09:29 Dose: 5,000 unit Metoprolol Tartrate (Lopressor -) 50 mg PO BID [facility] Last Admin: 04/05/17 09:29 Dose: 50 mg Quinapril HCl (Accupril -) 5 mg PO DAILY [facility] Last Admin: 04/05/17 09:29 Dose: 5 mg - Objective Vital Signs: Vital Signs Temperature 98.2 F 04/05/17 09:00 Pulse Rate 90 04/05/17 09:00 Respiratory Rate 20 04/05/17 09:00 Blood Pressure 150/90 04/05/17 09:00 O2 Sat by Pulse Oximetry (%) 97 04/04/17 20:32 Cardiovascular: Yes: Regular Rate and Rhythm Respiratory: Yes: Regular, CTA Bilaterally Gastrointestinal: Yes: Normal Bowel Sounds, Soft Labs: CBC, BMP 04/02/17 06:45 04/02/17 06:45 Problem List - Problems (1) Fall Assessment/Plan: DUE TO WEAKNESS POSSIBLE VOLUME DEPLETION R/O ARRHYTHMIA--NOT ON MONITOR HOLTER ECHO CARDIO NOTED--AWAIT W/U Code(s): W19.XXXA - UNSPECIFIED FALL, INITIAL ENCOUNTER Qualifiers: Encounter type: subsequent encounter Qualified Code(s): W19.XXXD - Unspecified fall, subsequent encounter (2) Tachycardia Assessment/Plan: HYDRATE F/U EKG CARDIO NOTED Code(s): R00.0 - TACHYCARDIA, UNSPECIFIED (3) Dehydration Assessment/Plan: IVF MONITOR LABS AND BP Code(s): E86.0 - DEHYDRATION (4) Unable to ambulate Assessment/Plan: PT MRI OF LS NEURO Code(s): R26.2 - DIFFICULTY IN WALKING, NOT ELSEWHERE CLASSIFIED (5) HTN (hypertension) Assessment/Plan: MONITOR ON MEDS Code(s): I10 - ESSENTIAL (PRIMARY) HYPERTENSION Qualifiers: Hypertension type: essential hypertension Qualified Code(s): I10 - Essential (primary) hypertension (6) Compression fracture Assessment/Plan: MRI OF LS NO FRACTURE PT NEURO Code(s): LLW2526 - (7) NPH (normal pressure hydrocephalus) Assessment/Plan: MRI NOTED--NS FOLLOW UP NOTE NEURO F/U MAY NEED TAP Code(s): G91.2 - (IDIOPATHIC) NORMAL PRESSURE HYDROCEPHALUS
--- NOTE | 2017-04-05 15:16 | PN ---
Progress Note (short form) - Note Progress Note: NEUROSURGERY No new complaint In bed PE: AF, VSS Not able to stand up HEENT- NC/AT; Neck- supple; Cor- RRR; Lungs- CTA; Abd- benign; Ext- no sign of DVT A/A/Ox3 CN- decreased hearing B; mild tongue deviation to R; Motor- 4+-5/5 without drift ; Sensation- mildly decreased LE vibratory sensation; DTR- 1+ Head CT: moderate dilatation of lateral and third ventricle without transependymal flow/edema; calcified choroid plexus, calcified BG Brain MRI: mild-moderate atrophy, moderate ventriculomegaly, mild periventricular T2 hyperintensity C spine MRI- spondylosis, DDD C3-4, C4-5, C5-6, near complete autofusion C5-6, C4-5-6 spondylosis with mild thecal sac impingement L > R; facet hypertrophy LS spine MRI- multilevel DDD with bulges; no significant canal stenosis; lordosis preserved Symptom triads of urinary incontinence, ataxia > memory difficulty c/w clinical NPH Neurology f/u and possible LP for confirmation, opening pressure measurement, and routine CSF sampling If + clinical improvement after CSF sampling/withdrawal could consider VPS ( potential risks and benefits discussed) Pt has been deteriorating over 6 months to being non-ambulatory Patient understands that prognosis is poor (non-ambulatory and further immobility/deterioration) without intervention (pros and cons of LP and possibly shunt discussed and pt declined) Pt opting for rehab only Encouraged ROM and strengthening exercises even when in bed All questions answered Will sign off and discharge patient from my care based on the above
[2017-04-05] MEDS: ATORVASTATIN CA 10 MG TABLET (FP) PO SCH (21:29)
[2017-04-06] MEDS ORDERED: PT OWN MED DRAWER 7, Y5N ONE (09:06)
[2017-04-06] MEDS: QUINAPRIL HCL 5 MG TABLET (FP) PO SCH (10:14)
[2017-04-06] MEDS: CHOLECALCIFEROL (VITAMIN D3) 1,000 UNIT TABLET (FP) PO SCH (10:14)
[2017-04-06] MEDS: HEPARIN NA (PORCINE) 5,000 UNITS/ML 1ML VIAL SQ SCH ×2 (10:14→21:34)
[2017-04-06] MEDS: ASPIRIN 81 MG CHEWABLE TABLETS PO SCH (10:14)
[2017-04-06] MEDS: METOPROLOL TARTRATE 50 MG TABLET (FP) PO SCH ×2 (10:14→21:34)
--- NOTE | 2017-04-06 11:58 | PN ---
Progress Note (short form) - Note Progress Note: NEUROLOGY FOLLOW-UP: Events and MRI scans reviewed, patient examined in PT. Dr. Gold's consultation is read and is greatly appreciated. MRI of the brain confirms hydrocephalus out of proportion to minimal atrophy and shows periventricular extension of CSF. Pt is tolerating L-Dopa without difficulty an is slightly more able to get out of chair with assist and to ambulate with a wide-based, shuffling, gait. Decreased ALONDRA's Right hand with spread to proximal groups and Cogwheel rigidity on the right which is increased by reinforcement. IMP: Normal Pressure Hydrocephalus (NPH). Extrapyramidal (Parkinsonian) features. Plan: Proceed with LP (drain 40-50 cc) and walk patient 5, 15, 30 and 60 mins after the LP. Continue Sinemet CR 25/100 po TID @ 7, 12, and 5. Patient should strongly consider DISPLAY CARVER shunt. Thank you very much, Mal Voss MD
--- NOTE | 2017-04-06 15:48 | PN ---
Progress Note, Physician - Current Medication List Current Medications: Active Medications Aspirin (Asa -) 81 mg PO DAILY [facility] Last Admin: 04/06/17 10:14 Dose: 81 mg Atorvastatin Calcium (Lipitor -) 10 mg PO HS [facility] Last Admin: 04/05/17 21:29 Dose: 10 mg Carbidopa/Levodopa (Sinemet *Cr* 25/100 -) 1 combo PO TID [facility] Last Admin: 04/06/17 13:42 Dose: 1 combo Cholecalciferol (Vitamin D3 -) 1,000 unit PO DAILY [facility] Last Admin: 04/06/17 10:14 Dose: 1,000 unit Heparin Sodium (Porcine) (Heparin -) 5,000 unit SQ BID [facility] Last Admin: 04/06/17 10:14 Dose: 5,000 unit Metoprolol Tartrate (Lopressor -) 50 mg PO BID [facility] Last Admin: 04/06/17 10:14 Dose: 50 mg Quinapril HCl (Accupril -) 5 mg PO DAILY [facility] Last Admin: 04/06/17 10:14 Dose: 5 mg - Objective Vital Signs: Vital Signs Temperature 98.0 F 04/06/17 14:11 Pulse Rate 69 04/06/17 14:11 Respiratory Rate 20 04/06/17 08:53 Blood Pressure 100/60 04/06/17 14:11 O2 Sat by Pulse Oximetry (%) 97 04/06/17 08:47 Constitutional: Yes: Well Nourished, No Distress, Calm Cardiovascular: Yes: Regular Rate and Rhythm Respiratory: Yes: Regular Gastrointestinal: Yes: Normal Bowel Sounds Musculoskeletal: Yes: Muscle Weakness (generalized) Extremities: Yes: Other (weakness) Peripheral Pulses WNL: Yes Integumentary: Yes: WNL Neurological: Yes: Alert, Oriented, Unsteady Gait, Weakness Labs: CBC, BMP 04/02/17 06:45 04/02/17 06:45 Problem List - Problems (1) NPH (normal pressure hydrocephalus) Assessment/Plan: -seen by neurology today- suggested LP drain and eventually shunt -still weak, seen by Physical Therapy -Agreeing to LP drain -Neurosurgery to see patient again. Code(s): G91.2 - (IDIOPATHIC) NORMAL PRESSURE HYDROCEPHALUS (2) Unable to ambulate Assessment/Plan: -seen by Physical Therapy Code(s): R26.2 - DIFFICULTY IN WALKING, NOT ELSEWHERE CLASSIFIED (3) Leukocytosis Assessment/Plan: -inflammatory vs infection -improved -blood culture pending -add urine culture -repeat labs in AM Code(s): D72.829 - ELEVATED WHITE BLOOD CELL COUNT, UNSPECIFIED Assessment/Plan -urine culture -labs in am -LP drain -Physical therapy
[2017-04-06] MEDS: ATORVASTATIN CA 10 MG TABLET (FP) PO SCH (21:34)
[2017-04-07 07:28] LABS: BASOPHIL 0.3 % (0-2.0); EOSINOPHIL 1.3 % (0-4.5); MCH 30.9 pg (25.7-33.7); MCHC 34.1 g/dl (32.0-35.9); MEAN CELL VOLUME 90.7 fl (80-96); NEUTROPHILS 69.8 % (42.8-82.8); PLATELET COUNT 170 K/MM3 (134-434); RDW 13.8 % (11.9-15.9); WHITE BLOOD COUNT 9.1 K/mm3 (4.0-10.0)
[2017-04-07 07:39] LABS: INR 1.1 (0.82-1.09); PROTHROMBIN TIME (PATIENT) 12.1 SEC (9.98-11.88)
[2017-04-07 07:42] LABS: ACTIVATED PTT 32.9 SECONDS (26.9-34.4)
[2017-04-07 08:02] LABS: ALBUMIN 3.4 g/dl (3.4-5.0); ANION GAP 7 (8-16); CALCIUM 9.3 mg/dL (8.5-10.1); CO2 30 mmol/L (21-32); GLUCOSE,RANDOM 92 mg/dL (74-106)
[2017-04-07 08:05] LABS: ALK PHOS 73 U/L (45-117); BILIRUBIN,TOTAL 1.5 mg/dL (0.2-1.0); CREATININE 1.5 mg/dL (0.7-1.3); SGOT/AST 28 U/L (15-37); SGPT/ALT 10 U/L (12-78); TOT PROT 6.8 g/dl (6.4-8.2)
[2017-04-07] MEDS: HEPARIN NA (PORCINE) 5,000 UNITS/ML 1ML VIAL SQ SCH (09:32)
[2017-04-07] MEDS: CHOLECALCIFEROL (VITAMIN D3) 1,000 UNIT TABLET (FP) PO SCH (09:32)
[2017-04-07] MEDS: ASPIRIN 81 MG CHEWABLE TABLETS PO SCH (09:32)
[2017-04-07] MEDS: QUINAPRIL HCL 5 MG TABLET (FP) PO SCH (09:32)
[2017-04-07] MEDS: METOPROLOL TARTRATE 50 MG TABLET (FP) PO SCH ×2 (09:32→21:02)
--- NOTE | 2017-04-07 10:22 | PN ---
Progress Note, Physician - Current Medication List Current Medications: Active Medications Aspirin (Asa -) 81 mg PO DAILY [facility] Last Admin: 04/07/17 09:32 Dose: 81 mg Atorvastatin Calcium (Lipitor -) 10 mg PO HS [facility] Last Admin: 04/06/17 21:34 Dose: 10 mg Carbidopa/Levodopa (Sinemet *Cr* 25/100 -) 1 combo PO TID [facility] Last Admin: 04/07/17 06:15 Dose: 1 combo Cholecalciferol (Vitamin D3 -) 1,000 unit PO DAILY [facility] Last Admin: 04/07/17 09:32 Dose: 1,000 unit Heparin Sodium (Porcine) (Heparin -) 5,000 unit SQ BID [facility] Last Admin: 04/07/17 09:32 Dose: 5,000 unit Metoprolol Tartrate (Lopressor -) 50 mg PO BID [facility] Last Admin: 04/07/17 09:32 Dose: 50 mg Quinapril HCl (Accupril -) 5 mg PO DAILY [facility] Last Admin: 04/07/17 09:32 Dose: 5 mg - Objective Vital Signs: Vital Signs Temperature 98.0 F 04/07/17 06:21 Pulse Rate 67 04/07/17 06:21 Respiratory Rate 20 04/07/17 06:21 Blood Pressure 104/61 04/07/17 06:21 O2 Sat by Pulse Oximetry (%) 97 04/06/17 21:00 Constitutional: Yes: Well Nourished, No Distress, Calm Cardiovascular: Yes: Regular Rate and Rhythm Respiratory: Yes: Regular Gastrointestinal: Yes: Normal Bowel Sounds Musculoskeletal: Yes: Muscle Weakness Edema: No Peripheral Pulses WNL: Yes Neurological: Yes: Alert, Oriented Psychiatric: Yes: Alert, Oriented Labs: CBC, BMP 04/07/17 05:35 04/07/17 05:35 INR, PTT INR 1.10 (0.82-1.09) 04/07/17 05:35 Problem List - Problems (1) NPH (normal pressure hydrocephalus) Assessment/Plan: -seen by neurology today- suggested LP drain and eventually shunt -still weak, seen by Physical Therapy -Agreeing to LP drain, awaiting neurology to proceed with the procedure Code(s): G91.2 - (IDIOPATHIC) NORMAL PRESSURE HYDROCEPHALUS (2) Unable to ambulate Assessment/Plan: -seen by Physical Therapy -still weak BLLE Code(s): R26.2 - DIFFICULTY IN WALKING, NOT ELSEWHERE CLASSIFIED (3) Leukocytosis Assessment/Plan: -inflammatory vs infection -improved -blood culture pending -urine culture pending -WBC improved-normal, on repeat labs this AM Code(s): D72.829 - ELEVATED WHITE BLOOD CELL COUNT, UNSPECIFIED (4) Dehydration Assessment/Plan: -worsened BUN and Cr -add mild IVF for hydration Code(s): E86.0 - DEHYDRATION Assessment/Plan -urine and blood culture pending -labs in am -awaiting LP drain by neurology -Physical therapy -gentle IVF
[2017-04-07] MEDS: SODIUM CHLORIDE 1,000 ML IV SCH ×2 (13:02→21:03)
[2017-04-07] MEDS: ATORVASTATIN CA 10 MG TABLET (FP) PO SCH (21:03)
[2017-04-08] MEDS: METOPROLOL TARTRATE 50 MG TABLET (FP) PO SCH ×2 (09:47→21:10)
[2017-04-08] MEDS: QUINAPRIL HCL 5 MG TABLET (FP) PO SCH (09:47)
[2017-04-08] MEDS: CHOLECALCIFEROL (VITAMIN D3) 1,000 UNIT TABLET (FP) PO SCH (09:47)
--- NOTE | 2017-04-08 10:09 | PN ---
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 Is going to IR for LP drain, was on aspirin 81 and heparin which was held yesterday. 2 units of platelets being given prior to the procedure. sitting in a wheelchair, comfortable, nad, no pain. - Current Medication List Current Medications: Active Medications Atorvastatin Calcium (Lipitor -) 10 mg PO HS [facility] Last Admin: 04/07/17 21:03 Dose: 10 mg Carbidopa/Levodopa (Sinemet *Cr* 25/100 -) 1 combo PO TID [facility] Last Admin: 04/08/17 05:58 Dose: 1 combo Cholecalciferol (Vitamin D3 -) 1,000 unit PO DAILY [facility] Last Admin: 04/08/17 09:47 Dose: 1,000 unit Sodium Chloride (Normal Saline -) 1,000 mls @ 50 mls/hr IV ASDIR [facility] Stop: 04/08/17 10:19 Last Admin: 04/07/17 21:03 Dose: 50 mls/hr Metoprolol Tartrate (Lopressor -) 50 mg PO BID [facility] Last Admin: 04/08/17 09:47 Dose: 50 mg Quinapril HCl (Accupril -) 5 mg PO DAILY [facility] Last Admin: 04/08/17 09:47 Dose: 5 mg - Objective Vital Signs: Vital Signs Temperature 98.3 F 04/08/17 08:49 Pulse Rate 80 04/08/17 08:49 Respiratory Rate 20 04/08/17 08:49 Blood Pressure 137/81 04/08/17 08:49 O2 Sat by Pulse Oximetry (%) 97 04/06/17 21:00 Constitutional: Yes: Well Nourished, No Distress, Calm Cardiovascular: Yes: Regular Rate and Rhythm Respiratory: Yes: Regular Gastrointestinal: Yes: Normal Bowel Sounds Musculoskeletal: Yes: Muscle Weakness Extremities: Yes: WNL Edema: No Peripheral Pulses WNL: Yes Neurological: Yes: Alert, Oriented Psychiatric: Yes: Alert, Oriented Labs: CBC, BMP 04/07/17 05:35 04/07/17 05:35 INR, PTT INR 1.10 (0.82-1.09) 04/07/17 05:35 Problem List - Problems (1) NPH (normal pressure hydrocephalus) Assessment/Plan: -seen by neurology today- suggested LP drain and eventually shunt -still weak, seen by Physical Therapy -Agreeing to LP drain, awaiting procedure by IR today. Code(s): G91.2 - (IDIOPATHIC) NORMAL PRESSURE HYDROCEPHALUS (2) Unable to ambulate Assessment/Plan: -seen by Physical Therapy -still weak BLLE Code(s): R26.2 - DIFFICULTY IN WALKING, NOT ELSEWHERE CLASSIFIED (3) Leukocytosis Assessment/Plan: -inflammatory vs infection -improved -blood culture negative -urine culture pending -WBC improved-normal, on repeat labs this AM Code(s): D72.829 - ELEVATED WHITE BLOOD CELL COUNT, UNSPECIFIED (4) Dehydration Assessment/Plan: -worsened BUN and Cr -add mild IVF for hydration Code(s): E86.0 - DEHYDRATION Assessment/Plan -urine culture pending -BC negative -labs in am -awaiting LP drain by IR -Physical therapy -receiving 2 units of platelets -gentle IVF
[2017-04-08 13:35] LABS: CSF APPEARANCE CLEAR; CSF COLOR COLORLESS; CSF RBC 214
[2017-04-08 14:09] LABS: GLUCOSE,CSF 61 mg/dL (50-80)
[2017-04-08 14:12] LABS: BASOPHIL 0.4 % (0-2.0); EOSINOPHIL 1.3 % (0-4.5); MCHC 33.7 g/dl (32.0-35.9); MEAN CELL VOLUME 91.9 fl (80-96); MEAN PLT VOLUME 7.8 fl (7.5-11.1); NEUTROPHILS 76.3 % (42.8-82.8); PLATELET COUNT 237 K/MM3 (134-434); RDW 13.6 % (11.9-15.9); WHITE BLOOD COUNT 11.7 K/mm3 (4.0-10.0)
[2017-04-08 14:46] LABS: ALBUMIN 3.8 g/dl (3.4-5.0); ALK PHOS 75 U/L (45-117); ANION GAP 9 (8-16); BILIRUBIN,TOTAL 1.4 mg/dL (0.2-1.0); CALCIUM 9.4 mg/dL (8.5-10.1); CO2 29 mmol/L (21-32); CREATININE 1.3 mg/dL (0.7-1.3); GLUCOSE,RANDOM 85 mg/dL (74-106); SGOT/AST 26 U/L (15-37); SGPT/ALT 19 U/L (12-78); TOT PROT 7.5 g/dl (6.4-8.2)
--- NOTE | 2017-04-08 18:45 | PN ---
Progress Note (short form) - Note Progress Note: NEUROLOGY F/U: Events reviewed, patient examined. LP done under Fluoroscopic guidance with poening pressure of 65 mm CSF. Unfortunately, radiology did not drain adequate spinal fluid, as requested, to access improved gait. Pt is tolerating L-Dopa without difficulty and notes decreased tremor and improved ability to sit up in bed. Exam: Mild OMS Cogwheeling R/L Decreased ALONDRA's Wide-based, waddling gait. IMP: Normal Pressure Hydrocephalus (NPH) Parkinsonian features. We had a lengthy discussion about NPH and the risks and benefits of VOLUNTEER ASSISTANT shunting. Patient agrees to proceed. PLAN: Increase L-Dopa to Sinemet CR 50/200 PO TID at 7, 12, and 5. Recall Dr. Juan Gold to proceed with VOLUNTEER ASSISTANT Shunt early next week. Thank you very much, Mal Voss MD
[2017-04-08] MEDS ORDERED: PT OWN MED DRAWER 7, Y5N ONE (21:05)
[2017-04-08] MEDS: ATORVASTATIN CA 10 MG TABLET (FP) PO SCH (21:10)
--- NOTE | 2017-04-08 22:26 | PN ---
Progress Note (short form) - Note Progress Note: NEUROSURGERY LP noted No H/A, N/V Sitting up earlier Unfortunately only 3-6 cc removed; opening pressure noted 6.5 cm H2O PE: AF, VSS HEENT- NC/AT; Neck- supple; Cor- RRR; Lungs- CTA; Abd- benign; Ext- no sign of DVT A/A/Ox3 CN- decreased hearing B; mild tongue deviation to R; Motor- 4+-5/5 without drift ; Sensation- mildly decreased LE vibratory sensation; DTR- 1+ Head CT: moderate dilatation of lateral and third ventricle without transependymal flow/edema; calcified choroid plexus, calcified BG Brain MRI: mild-moderate atrophy, moderate ventriculomegaly, mild periventricular T2 hyperintensity Symptom triads of urinary incontinence, ataxia > memory difficulty c/w clinical NPH Neurology input noted VPS considered and agreed to by patien Successful outcome slightly less certain given suboptimal LP CS removal Pt has been deteriorating over 6 months to become non-ambulatory and wishes to proceed Risks: bleeding, infection, stroke, seizure, coma, , pneumothorax, abdominal visceral injury, bladder injury, SDH, shunt malfunction, shunt infection, general anesthesia Medical/cardiology clearance Expected operative and post-operative care explained Pros and cons of treatment approaches explained OR tentatively for Tuesday Shunt implant reviewed with OR staff T & S Will be off ASA for > 5 days by Tuesday NPO P MN on Tuesday late night
[2017-04-09 07:54] LABS: BASOPHIL 0.4 % (0-2.0); EOSINOPHIL 1.6 % (0-4.5); MCH 31.7 pg (25.7-33.7); MCHC 34.9 g/dl (32.0-35.9); MEAN CELL VOLUME 90.9 fl (80-96); MEAN PLT VOLUME 8.2 fl (7.5-11.1); NEUTROPHILS 69.6 % (42.8-82.8); PLATELET COUNT 211 K/MM3 (134-434); RDW 13.4 % (11.9-15.9); WHITE BLOOD COUNT 9.5 K/mm3 (4.0-10.0)
[2017-04-09 08:37] LABS: ALBUMIN 3.5 g/dl (3.4-5.0); ALK PHOS 76 U/L (45-117); ANION GAP 7 (8-16); BILIRUBIN,TOTAL 1.3 mg/dL (0.2-1.0); CALCIUM 9.3 mg/dL (8.5-10.1); CO2 29 mmol/L (21-32); CREATININE 1.4 mg/dL (0.7-1.3); GLUCOSE,RANDOM 78 mg/dL (74-106); SGOT/AST 21 U/L (15-37); SGPT/ALT 12 U/L (12-78); TOT PROT 7.1 g/dl (6.4-8.2)
[2017-04-09] MEDS: QUINAPRIL HCL 5 MG TABLET (FP) PO SCH (09:58)
[2017-04-09] MEDS: CHOLECALCIFEROL (VITAMIN D3) 1,000 UNIT TABLET (FP) PO SCH (09:58)
[2017-04-09] MEDS: METOPROLOL TARTRATE 50 MG TABLET (FP) PO SCH ×2 (09:58→21:15)
--- NOTE | 2017-04-09 11:18 | PN ---
Progress Note, Physician Chief Complaint: THIS IS MY FIRST ENCOUNTER WITH THIS PATIENT CHART AND EVENTS REVIEWED SCHEDULED FOR ASSEMBLER SURGICAL GARMENT SHUNT TUESDAY NAD, AWAKE ALERT - Current Medication List Current Medications: Active Medications Atorvastatin Calcium (Lipitor -) 10 mg PO HS [facility] Last Admin: 04/08/17 21:10 Dose: 10 mg Carbidopa/Levodopa (Sinemet *Cr* 50/200 -) 1 combo PO TID [facility] Last Admin: 04/09/17 05:12 Dose: 1 combo Cholecalciferol (Vitamin D3 -) 1,000 unit PO DAILY [facility] Last Admin: 04/09/17 09:58 Dose: 1,000 unit Potassium Chloride/Dextrose/Sod Cl (D5-1/2ns+20 Meq Kcl -) 1,000 mls @ 80 mls/ hr IV ASDIR [facility] Metoprolol Tartrate (Lopressor -) 50 mg PO BID [facility] Last Admin: 04/09/17 09:58 Dose: 50 mg Quinapril HCl (Accupril -) 5 mg PO DAILY [facility] Last Admin: 04/09/17 09:58 Dose: 5 mg - Objective Vital Signs: Vital Signs Temperature 98.2 F 04/09/17 08:50 Pulse Rate 63 04/09/17 08:50 Respiratory Rate 18 04/09/17 08:50 Blood Pressure 136/72 04/09/17 08:50 O2 Sat by Pulse Oximetry (%) 97 04/09/17 09:00 Constitutional: Yes: No Distress Eyes: Yes: WNL HENT: Yes: WNL Neck: Yes: WNL Cardiovascular: Yes: WNL Respiratory: Yes: WNL Gastrointestinal: Yes: WNL Genitourinary: Yes: WNL Musculoskeletal: Yes: Muscle Weakness Extremities: Yes: WNL Edema: No Peripheral Pulses WNL: Yes Integumentary: Yes: WNL Wound/Incision: Yes: Clean/Dry Neurological: Yes: Pre-Existing Deficit, Unsteady Gait ...Motor Strength: LLE, RLE Psychiatric: Yes: Other Labs: CBC, BMP 04/09/17 05:40 04/09/17 05:40 INR, PTT INR 1.10 (0.82-1.09) 04/07/17 05:35 Problem List - Problems (1) CAD (coronary artery disease), [place] coronary artery Code(s): I25.10 - ATHSCL HEART DISEASE OF [place] CORONARY ARTERY W/O ANG PCTRS Qualifiers: [place] vs. transplanted heart: [place] heart Associated angina: without angina Qualified Code(s): I25.10 - Atherosclerotic heart disease of [place] coronary artery without angina pectoris (2) Fall Code(s): W19.XXXA - UNSPECIFIED FALL, INITIAL ENCOUNTER Qualifiers: Encounter type: subsequent encounter Qualified Code(s): W19.XXXD - Unspecified fall, subsequent encounter (3) HTN (hypertension) Code(s): I10 - ESSENTIAL (PRIMARY) HYPERTENSION Qualifiers: Hypertension type: essential hypertension Qualified Code(s): I10 - Essential (primary) hypertension (4) NPH (normal pressure hydrocephalus) Code(s): G91.2 - (IDIOPATHIC) NORMAL PRESSURE HYDROCEPHALUS (5) Unable to ambulate Code(s): R26.2 - DIFFICULTY IN WALKING, NOT ELSEWHERE CLASSIFIED Assessment/Plan NEUROSURGERY [facility] FOR ASSEMBLER SURGICAL GARMENT SHUNT MEDICALLY CLEARED FOR PROCEDURE NPO PAST MIDNIGHT TOMORROW MEDICATIONS AND LABS REVIEWED MONITOR CREATININE
[2017-04-09] MEDS ORDERED: PT OWN MED DRAWER 7, Y5N ONE ×3 (13:02→20:51)
[2017-04-09] MEDS: ATORVASTATIN CA 10 MG TABLET (FP) PO SCH (21:15)
[2017-04-10 09:17] LABS: ANION GAP 6 (8-16); CALCIUM 9.3 mg/dL (8.5-10.1); CO2 32 mmol/L (21-32); CREATININE 1.3 mg/dL (0.7-1.3); GLUCOSE,RANDOM 84 mg/dL (74-106)
[2017-04-10] MEDS: QUINAPRIL HCL 5 MG TABLET (FP) PO SCH (09:51)
[2017-04-10] MEDS: CHOLECALCIFEROL (VITAMIN D3) 1,000 UNIT TABLET (FP) PO SCH (09:51)
[2017-04-10] MEDS: METOPROLOL TARTRATE 50 MG TABLET (FP) PO SCH ×2 (09:51→21:38)
--- NOTE | 2017-04-10 11:13 | PN ---
Progress Note, Physician Chief Complaint: AWAKE ALERT FAMILY BEDSIDE AWAITING DATE FOR PUBLIC RELATIONS PLAYER SHUNT PLACEMENT - Current Medication List Current Medications: Active Medications Atorvastatin Calcium (Lipitor -) 10 mg PO HS [facility] Last Admin: 04/09/17 21:15 Dose: 10 mg Carbidopa/Levodopa (Sinemet *Cr* 50/200 -) 1 combo PO TID [facility] Last Admin: 04/10/17 05:49 Dose: 1 combo Cholecalciferol (Vitamin D3 -) 1,000 unit PO DAILY [facility] Last Admin: 04/10/17 09:51 Dose: 1,000 unit Potassium Chloride/Dextrose/Sod Cl (D5-1/2ns+20 Meq Kcl -) 1,000 mls @ 80 mls/ hr IV ASDIR [facility] Metoprolol Tartrate (Lopressor -) 50 mg PO BID [facility] Last Admin: 04/10/17 09:51 Dose: 50 mg Quinapril HCl (Accupril -) 5 mg PO DAILY [facility] Last Admin: 04/10/17 09:51 Dose: 5 mg - Objective Vital Signs: Vital Signs Temperature 98.5 F 04/10/17 09:23 Pulse Rate 75 04/10/17 09:23 Respiratory Rate 18 04/10/17 09:23 Blood Pressure 123/79 04/10/17 09:23 O2 Sat by Pulse Oximetry (%) 97 04/09/17 21:00 Constitutional: Yes: Mild Distress Eyes: Yes: WNL HENT: Yes: WNL Neck: Yes: WNL Cardiovascular: Yes: WNL Respiratory: Yes: WNL Gastrointestinal: Yes: WNL Genitourinary: Yes: WNL Musculoskeletal: Yes: WNL Extremities: Yes: WNL Edema: No Peripheral Pulses WNL: Yes Integumentary: Yes: WNL Wound/Incision: Yes: Clean/Dry Neurological: Yes: Unsteady Gait ...Motor Strength: LLE, RLE Psychiatric: Yes: Other Labs: CBC, BMP 04/09/17 05:40 04/10/17 06:38 INR, PTT INR 1.10 (0.82-1.09) 04/07/17 05:35 Problem List - Problems (1) CAD (coronary artery disease), [place] coronary artery Code(s): I25.10 - ATHSCL HEART DISEASE OF [place] CORONARY ARTERY W/O ANG PCTRS Qualifiers: [place] vs. transplanted heart: [place] heart Associated angina: without angina Qualified Code(s): I25.10 - Atherosclerotic heart disease of [place] coronary artery without angina pectoris (2) Fall Code(s): W19.XXXA - UNSPECIFIED FALL, INITIAL ENCOUNTER Qualifiers: Encounter type: subsequent encounter Qualified Code(s): W19.XXXD - Unspecified fall, subsequent encounter (3) HTN (hypertension) Code(s): I10 - ESSENTIAL (PRIMARY) HYPERTENSION Qualifiers: Hypertension type: essential hypertension Qualified Code(s): I10 - Essential (primary) hypertension (4) NPH (normal pressure hydrocephalus) Code(s): G91.2 - (IDIOPATHIC) NORMAL PRESSURE HYDROCEPHALUS (5) Unable to ambulate Code(s): R26.2 - DIFFICULTY IN WALKING, NOT ELSEWHERE CLASSIFIED Assessment/Plan NEUROSURGERY [facility] FOR PUBLIC RELATIONS PLAYER SHUNT MEDICALLY CLEARED FOR PROCEDURE NPO PAST MIDNIGHT TONIGHT MEDICATIONS AND LABS REVIEWED MONITOR CREATININE
--- NOTE | 2017-04-10 12:21 | PN ---
Progress Note, Physician Chief Complaint: Asked to re-evaluate for preoperative cardiac risk assessment. no chest pain or sob. History of Present Illness: 86 year old male, with a significant past medical history of hypertension, hyperlipidemia, enlarged prostate, and CAD s/p stent in the past who presents after fall at home. Cardiac workup including Echo and Holter Monitor were unremarkable. No ECG changes or evidence of ACS. Denies angina, orthopnea, pnd or edema. He was found to have NPH and is awaiting UNIVERSITY EXTENSION SPECIALIST shunt. - Current Medication List Current Medications: Active Medications Atorvastatin Calcium (Lipitor -) 10 mg PO HS [facility] Last Admin: 04/09/17 21:15 Dose: 10 mg Carbidopa/Levodopa (Sinemet *Cr* 50/200 -) 1 combo PO TID [facility] Last Admin: 04/10/17 05:49 Dose: 1 combo Cholecalciferol (Vitamin D3 -) 1,000 unit PO DAILY [facility] Last Admin: 04/10/17 09:51 Dose: 1,000 unit Potassium Chloride/Dextrose/Sod Cl (D5-1/2ns+20 Meq Kcl -) 1,000 mls @ 80 mls/ hr IV ASDIR [facility] Metoprolol Tartrate (Lopressor -) 50 mg PO BID [facility] Last Admin: 04/10/17 09:51 Dose: 50 mg Quinapril HCl (Accupril -) 5 mg PO DAILY [facility] Last Admin: 04/10/17 09:51 Dose: 5 mg - Objective Vital Signs: Vital Signs Temperature 98.5 F 04/10/17 09:23 Pulse Rate 75 04/10/17 09:23 Respiratory Rate 18 04/10/17 09:23 Blood Pressure 123/79 04/10/17 09:23 O2 Sat by Pulse Oximetry (%) 97 04/10/17 09:00 Constitutional: Yes: No Distress, Calm Eyes: Yes: Conjunctiva Clear, EOM Intact HENT: Yes: Atraumatic, Normocephalic Neck: Yes: Supple, Trachea Midline Cardiovascular: Yes: Regular Rate and Rhythm, S1, S2 Respiratory: Yes: Regular, CTA Bilaterally Gastrointestinal: Yes: Normal Bowel Sounds, Soft Extremities: Yes: WNL Edema: No Peripheral Pulses WNL: Yes Labs: CBC, BMP 04/09/17 05:40 04/10/17 06:38 INR, PTT INR 1.10 (0.82-1.09) 04/07/17 05:35 Problem List - Problems (1) HTN (hypertension) Assessment/Plan: stable on medications. Code(s): I10 - ESSENTIAL (PRIMARY) HYPERTENSION Qualifiers: Hypertension type: essential hypertension Qualified Code(s): I10 - Essential (primary) hypertension (2) Fall Assessment/Plan: No evidence of cardiovascular cause. Awaiting UNIVERSITY EXTENSION SPECIALIST shunt for NPH. Code(s): W19.XXXA - UNSPECIFIED FALL, INITIAL ENCOUNTER Qualifiers: Encounter type: subsequent encounter Qualified Code(s): W19.XXXD - Unspecified fall, subsequent encounter (3) CAD (coronary artery disease), [place] coronary artery Assessment/Plan: h/o stent in past Asymptomatic stable to hold aspirin indefinitely at this point. continue beta thee and statin Code(s): I25.10 - ATHSCL HEART DISEASE OF [place] CORONARY ARTERY W/O ANG PCTRS Qualifiers: [place] vs. transplanted heart: [place] heart Associated angina: without angina Qualified Code(s): I25.10 - Atherosclerotic heart disease of [place] coronary artery without angina pectoris (4) Preop cardiovascular exam Assessment/Plan: There are no cardiac contraindications to surgery. He is medically optimized for the procedure. He is at low risk of perioperative cardiac events. No further testing is needed. Continue cardiac medications perioperatively. Will see as needed. Code(s): Z01.810 - ENCOUNTER FOR PREPROCEDURAL CARDIOVASCULAR EXAMINATION
[2017-04-10] MEDS ORDERED: PT OWN MED DRAWER 7, Y5N ONE ×2 (13:10→21:34)
[2017-04-10] MEDS: ATORVASTATIN CA 10 MG TABLET (FP) PO SCH (21:38)
[2017-04-10] MEDS ORDERED: D5-1/2NS+20 MEQ KCL - 1,000 ML IV SCH (23:00)
[2017-04-11] MEDS: CHOLECALCIFEROL (VITAMIN D3) 1,000 UNIT TABLET (FP) PO SCH (09:57)
[2017-04-11] MEDS: QUINAPRIL HCL 5 MG TABLET (FP) PO SCH (09:57)
[2017-04-11] MEDS: METOPROLOL TARTRATE 50 MG TABLET (FP) PO SCH ×3 (09:57→23:08)
--- NOTE | 2017-04-11 12:32 | PN ---
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 Had spinal tap with no relief of symptoms. He does not feel any different than before the tap. Is going to OR for TANK RIVETER shunt today. - Current Medication List Current Medications: Active Medications Atorvastatin Calcium (Lipitor -) 10 mg PO HS [facility] Last Admin: 04/10/17 21:38 Dose: 10 mg Carbidopa/Levodopa (Sinemet *Cr* 50/200 -) 1 combo PO TID [facility] Last Admin: 04/11/17 05:40 Dose: 1 combo Cholecalciferol (Vitamin D3 -) 1,000 unit PO DAILY [facility] Last Admin: 04/11/17 09:57 Dose: 1,000 unit Potassium Chloride/Dextrose/Sod Cl (D5-1/2ns+20 Meq Kcl -) 1,000 mls @ 80 mls/ hr IV ASDIR [facility] Last Admin: 04/10/17 22:35 Dose: 80 mls/hr Metoprolol Tartrate (Lopressor -) 50 mg PO BID [facility] Last Admin: 04/11/17 09:57 Dose: 50 mg Quinapril HCl (Accupril -) 5 mg PO DAILY [facility] Last Admin: 04/11/17 09:57 Dose: 5 mg - Objective Vital Signs: Vital Signs Temperature 97.8 F 04/11/17 09:55 Pulse Rate 69 04/11/17 09:55 Respiratory Rate 18 04/11/17 09:55 Blood Pressure 126/78 04/11/17 09:55 O2 Sat by Pulse Oximetry (%) 97 04/10/17 21:00 Constitutional: Yes: Well Nourished, No Distress, Calm Cardiovascular: Yes: Regular Rate and Rhythm Respiratory: Yes: Regular Gastrointestinal: Yes: Normal Bowel Sounds Musculoskeletal: Yes: Muscle Weakness Extremities: Yes: WNL Edema: No Peripheral Pulses WNL: Yes Neurological: Yes: Alert, Oriented Psychiatric: Yes: Alert, Oriented Labs: CBC, BMP 04/09/17 05:40 04/10/17 06:38 INR, PTT INR 1.10 (0.82-1.09) 04/07/17 05:35 Problem List - Problems (1) NPH (normal pressure hydrocephalus) Assessment/Plan: -still weak, seen by Physical Therapy -Agreeing to TANK RIVETER shunt, awaiting procedure by Neurosurgery today. Code(s): G91.2 - (IDIOPATHIC) NORMAL PRESSURE HYDROCEPHALUS (2) Unable to ambulate Assessment/Plan: -seen by Physical Therapy -still weak BLLE Code(s): R26.2 - DIFFICULTY IN WALKING, NOT ELSEWHERE CLASSIFIED (3) Leukocytosis Assessment/Plan: -resolved Code(s): D72.829 - ELEVATED WHITE BLOOD CELL COUNT, UNSPECIFIED (4) Dehydration Assessment/Plan: -improved BUN and Cr -continue mild IVF for hydration Code(s): E86.0 - DEHYDRATION Assessment/Plan -awaiting TANK RIVETER shunt by Neurosurgery -Physical therapy -gentle IVF -SCD's for dvt prophylaxis -rehab once stable
--- NOTE | 2017-04-11 14:11 | PN ---
Progress Note (short form) - Note Progress Note: NEUROSURGERY NPO No H/A, N/V PE: AF, VSS HEENT- NC/AT; Neck- supple; Cor- RRR; Lungs- CTA; Abd- benign; Ext- no sign of DVT A/A/Ox3 CN- decreased hearing B; Motor- 4+-5/5 without drift For R VPS PT understands indication for procedure, procedure in detail, risks, benefits, alternative for tx of NPH Risks: bleeding, infection, stroke, seizure, coma, , pneumothorax, abdominal visceral injury, bladder injury, SDH, shunt malfunction, shunt infection, general anesthesia Medical/cardiology clearance noted Expected operative and post-operative care explained again Pros and cons of treatment approaches explained T & S Consent obtained All questions answered
[2017-04-11] MEDS ORDERED: LIDOCAINE 1%/EPI 1:100000 (50 ML MULTI DOSE VIAL) ONE (15:11)
[2017-04-11] MEDS ORDERED: BUPIVACAINE HCL/PF 0.5% (5MG/ML) 10 ML VIAL ONE (15:12)
[2017-04-11] MEDS ORDERED: PROPOFOL 20 ML ONE (15:14)
[2017-04-11] MEDS ORDERED: LIDOCAINE HCL/PF 2% SDV 5ML VIAL ONE (15:14)
[2017-04-11] MEDS ORDERED: ROCURONIUM BROMIDE 50 MG/5 ML VIAL ONE (15:15)
[2017-04-11] MEDS ORDERED: ceFAZolin SODIUM 1 GM VIAL ONE (15:48)
[2017-04-11] MEDS ORDERED: ceFAZolin SODIUM 1 GM VIAL IVPB ONE (15:52)
[2017-04-11] MEDS ORDERED: LABETALOL HCL 5 MG/1 ML (100MG/20 ML VIAL) ONE (16:45)
[2017-04-11] MEDS ORDERED: NEOSTIGMINE METHYLSULFATE 0.5 MG/ML - 10 ML MDV ONE (17:10)
[2017-04-11] MEDS ORDERED: GLYCOPYRROLATE 0.2 MG/1 ML VIAL ONE (17:11)
[2017-04-11] MEDS ORDERED: ONDANSETRON 4 MG/2 ML VIAL IVPB PRN ×2 (17:43→18:28)
[2017-04-11] MEDS ORDERED: ACETAMINOPHEN WITH CODEINE 300MG/30MG TABLET PO PRN ×2 (17:43→18:28)
--- NOTE | 2017-04-11 17:43 | OP ---
Operative Note - Note: Operative Date: 04/11/17 Pre-Operative Diagnosis: NPH Operation: R parietal ventriculo-peritoneal shunt with [employer] Delta 1.0 valve Findings: clear CSF Implants: Delta peformance level 1.0 valve, ventricular catherter, peritoneal catheter Post-Operative Diagnosis: Same as Pre-op Surgeon: Juan Gold Grease Maker: Rudy Kirby Anesthesiologist/NUCLEAR POWERPLANT SUPERVISOR: Sam Bose Anesthesia: General, Peribulbar Estimated Blood Loss (mls): 10 Operative Report Dictated: Yes
[2017-04-11] MEDS ORDERED: D5-NS + 20 MEQ KCL - 1,000 ML IV SCH ×2 (17:45→18:28)
--- NOTE | 2017-04-11 17:56 | SURG ---
Surgery Purchasing Manager/Sales Note Purchasing Manager/Sales: Rudy Kirby PA-C Date of Service: 04/11/17 Diagnosis: Normal pressure hydrocephulus Procedure: R parietal ventriculo-peritoneal shunt with [employer] Delta 1.0 valve I was present for the entirety of the operative procedure. For further detail, please refer to operative report. Visit type - Case Type Case Type: ED Admission - New patient This patient is new to me today: Yes Date on this admission: 04/11/17
[2017-04-11] MEDS ORDERED: CEFAZOLIN 1 GM/D5W 50 ML IVPB SCH (18:00)
--- NOTE | 2017-04-11 18:04 | PN ---
Progress Note (short form) - Note Progress Note: NEUROSURGERY In PACU No H/A PE: AF, VSS HEENT- NC/AT; Neck- supple; Cor- RRR; Lungs- CTA; Abd- benign; Ext- no sign of DVT A/A/Ox2 CN- decreased hearing B; Motor- 4+-5/5 without drift; Sensation- intact LT HOB 15 degrees max No family in waiting area Pt states he christine call his family himself to let them know how he is doing Head CT in AM
--- NOTE | 2017-04-11 18:51 | CONSULT ---
Consultation: REQUESTING PROVIDER: Dr. Bocanegra CONSULT REQUEST: We have been asked to medically evaluate this patient for post- operative care s/p HOSPITAL TRAY SERVICE WORKER shunt. HISTORY OF PRESENT ILLNESS: 86 year old male s/p HOSPITAL TRAY SERVICE WORKER shunt for normal pressure hydrocephalus. Pt first presented to hospital w/ weakness and was found to have NPH by CT scan. LP was performed but was unsuccessful in treating his sx. Pt underwent HOSPITAL TRAY SERVICE WORKER shunt operation and transferred to the ICU for post-op care. Patient is awake and alert, is able to answer questions. Pt states that he has a 5/10 diffuse headache which he notices but doesn't cause him any distress. Pt states that he feels mildly "woozy." Pt additionally states that he has epigastric abdominal pain that does not radiate. REVIEW OF SYSTEMS: CONSTITUTIONAL: Absent: fever, chills, diaphoresis, generalized weakness, malaise, loss of appetite, weight change HEENT: Absent: rhinorrhea, nasal congestion, throat pain, throat swelling, difficulty swallowing, mouth swelling, ear pain, eye pain, visual changes CARDIOVASCULAR: Lightheadedness Absent: chest pain, syncope, palpitations, irregular heart rate, peripheral edema RESPIRATORY: Absent: cough, shortness of breath, dyspnea with exertion, orthopnea, wheezing, stridor, hemoptysis GASTROINTESTINAL: epigastric abdominal pain 5/10, abdominal distention Absent: nausea, vomiting, diarrhea, constipation, melena, hematochezia GENITOURINARY: Absent: dysuria, frequency, urgency, hesitancy, hematuria, flank pain, genital pain MUSCULOSKELETAL: Absent: myalgia, arthralgia, joint swelling, back pain, neck pain SKIN: Absent: rash, itching, pallor HEMATOLOGIC/IMMUNOLOGIC: Absent: easy bleeding, easy bruising, lymphadenopathy, frequent infections ENDOCRINE: Absent: unexplained weight gain, unexplained weight loss, heat intolerance, cold intolerance NEUROLOGIC: mild diffuse headache 5/10, dizziness Absent: focal weakness or paresthesias, dizziness, unsteady gait, seizure, mental status changes, bladder or bowel incontinence PSYCHIATRIC: Absent: anxiety, depression, suicidal or homicidal ideation, hallucinations. PHYSICAL EXAMINATION Vital Signs - 24 hr 04/10/17 04/10/17 04/10/17 19:53 21:00 23:00 Temperature 97.7 F Pulse Rate 80 69 Respiratory 20 18 Rate Blood Pressure 130/78 131/72 O2 Sat by Pulse 97 Oximetry (%) 04/11/17 04/11/17 04/11/17 06:00 09:00 09:55 Temperature 99.2 F 97.8 F Pulse Rate 60 69 Respiratory 18 18 Rate Blood Pressure 120/74 126/78 O2 Sat by Pulse 97 Oximetry (%) GENERAL: Awake, alert, not oriented to place or time, in no acute distress. HEAD: Normal with no signs of trauma. EYES: Pupils equal, round and reactive to light, extraocular movements intact, sclera anicteric, conjunctiva clear. No lid lag. EARS, NOSE, THROAT: Ears normal, nares patent, oropharynx clear without exudates. dry mucous membranes. NECK: Normal range of motion, supple without lymphadenopathy, JVD, or masses. LUNGS: Breath sounds equal, clear to auscultation bilaterally. No wheezes, and no crackles. No accessory muscle use. HEART: Regular rate and rhythm, normal S1 and S2 without murmur, rub or gallop. ABDOMEN: nontender, distended, hypoactive bowel sounds, no guarding, no rebound , no masses. No hepatomegaly or splenomegaly. post-surgical scar noted in mid- abdomen on left MUSCULOSKELETAL: Normal range of motion at all joints. No bony deformities or tenderness. No CVA tenderness. UPPER EXTREMITIES: 2+ pulses, warm, well-perfused. No cyanosis. No clubbing. Cap refill <2 seconds. No peripheral edema. LOWER EXTREMITIES: 2+ pulses, warm, well-perfused. No calf tenderness. No peripheral edema. NEUROLOGICAL: Cranial nerves II-XII intact. Normal speech. Gait unable to be assessed PSYCHIATRIC: Cooperative. Good eye contact. Appropriate mood and affect. SKIN: Warm, dry, normal turgor, no rashes or lesions noted. Laboratory Results - last 24 hr 04/11/17 04/11/17 04/11/17 06:00 06:30 17:45 POC Glucometer 102 CSF Appearance Clear CSF Color Colorless CSF WBC 3 CSF RBC 3 CSF Neutrophils Y Blood Type O POSITIVE Antibody Screen Negative Active Medications Generic Name Dose Route Start Last Admin Trade Name Freq PRN Reason Stop Dose Admin Acetaminophen/Codeine Phosphate 1 tab 04/11/17 18:28 Tylenol # 3 - PO Q4H PRN PAIN Atorvastatin Calcium 10 mg 04/11/17 22:00 Lipitor - PO HS CONSTANCE Carbidopa/Levodopa 1 combo 04/11/17 22:00 Sinemet *Cr* 50/200 - PO TID [facility] Cholecalciferol 1,000 unit 04/12/17 10:00 Vitamin D3 - PO DAILY [facility] Docusate Sodium 100 mg 04/11/17 22:00 Colace - PO TID CONSTANCE Fentanyl 50 mcg 04/11/17 18:05 Sublimaze Injection - IVPUSH 04/14/17 18:06 [id number] PRN PAIN Cefazolin Sodium 50 mls @ 100 mls/hr 04/12/17 02:00 Ancef 1gm Ivpb (Pre-Docked) IVPB 04/12/17 17:59 Q8H-IV CONSTANCE Pantoprazole Sodium 100 mls @ 200 mls/hr 04/12/17 10:00 Protonix 40mg Ivpb (Pre-Docked) IVPB DAILY CONSTANCE Dextrose/Sodium Chloride 1,000 mls @ 80 mls/hr 04/11/17 18:28 Dextrose 5%-Normal Saline+20 Meq Kcl - IV ASDIR [facility] Metoprolol Tartrate 50 mg 04/11/17 22:00 Lopressor - PO BID [facility] Ondansetron HCl 4 mg 04/11/17 18:28 Zofran Injection IVPB Q6H PRN NAUSEA Quinapril HCl 5 mg 04/12/17 10:00 Accupril - PO DAILY [facility] ASSESSMENT/PLAN: 86 year old male s/p ventriculoperitoneal shunt for normal pressure hydrocephalus. Neuro: -pt s/p ventriculoperitoneal shunt w/ dizziness -neurochecks q1h -ondansetron 4mg IVPB Q6 PRN -pt w/ 02/09 ZAVALA -tylenol #3 PRN as ordered by surgery -monitor mental status for acute changes -cont. carbidopa/levodopa as scheduled ID: -cont cefazolin 1gm 50ml @ 100ml/hr Q8 Cardiovascular: -am CBC, BMP -monitor BP and HR -cont. metoprolol 50mg PO BID and quinapril 5mg PO QD Respiratory: -monitor O2 sats, maintain > 90% -incentive spirometer use 10x/hr Abdominal: -abdominal distention + epigastric pain possibly due to recent anesthesia or CSF ascites vs ileus vs SBO -f/u with surgical team -cont docusate 100mg PO TID -monitor for progression Genitourinary: -valentin output 100cc -cont. monitor urine output FEN: -D5NS + 10 mEq KCl 1000cc @ 80cc/hr -NPO Proph: -continue protonix 40mg IV Dispo: -cont. all previous inpatient meds as scheduled -We will continue to follow the patient. Thank you for this consultative opportunity. Problem List - Problems (1) NPH (normal pressure hydrocephalus) Code(s): G91.2 - (IDIOPATHIC) NORMAL PRESSURE HYDROCEPHALUS (2) Encounter for postoperative care Code(s): Z48.89 - ENCOUNTER FOR OTHER SPECIFIED SURGICAL AFTERCARE Visit type - Emergency Visit Emergency Visit: No - New Patient This patient is new to me today: Yes Date on this admission: 04/11/17 - Critical Care Critical Care patient: Yes Total Critical Care Time (in minutes): 45 Critical Care Statement: The care of this patient involved high complexity decision making to prevent further life threatening deterioration of the patient 's condition and/or to evalute & treat vital organ system(s) failure or risk of failure.
[2017-04-11 19:08] LABS: CSF APPEARANCE CLEAR; CSF COLOR COLORLESS
[2017-04-11 19:09] LABS: CSF RBC 3
--- NOTE | 2017-04-11 21:01 | CONSULT ---
Consult Consult Specialty:: Pulm/CCM Reason for Consultation:: Hydrocephalus s/p CONTROL TOWER RADIO OPERATOR shunt - History of Present Illness Chief Complaint: Headache and weakness in setting of hydrocephalus History of Present Illness: 86 year old man with a medical history of HTN, HLD, heart disease, enlarged prostate, who presented to the ED 04/01/17 following a fall when he became dizzy after urinating. He reports his imbalance has been worsening the past month, to the point where he has begun using a cane and walker. CT scan head and MRI brain c/w normal pressure hydrocephalus. Symptoms were not relieved by LP and pt is now s/p ventriculoperitoneal shunt. He was tranferred to ICU for further management. - History Source History Provided By: Patient, Medical Record - Past Medical History ASSOCIATE PROFESSOR OF EDUCATION: No: CVA Cardio/Vascular: Yes: HTN, Hyperlipdemia - Alcohol/Substance Use Hx Alcohol Use: No - Smoking History Smoking history: Former smoker Have you smoked in the past 12 months: No - Social History Usual Living Arrangement: Alone (lives alone in apartment in house, 7 steps to enter from front and 3 from back, sister lives on top floor; previously independent in ADLs, before 1 mo CARE REP ambulated without AD but recently with cane / walker) Home Medications - Allergies Allergies/Adverse Reactions: Allergies Allergy/AdvReac Type Severity Reaction Status Date / Time No Known Allergies Allergy Verified 04/01/17 12:47 - Home Medications Home Medications: Ambulatory Orders Aspirin [ASA -] 81 mg PO DAILY 04/01/17 Atorvastatin Ca [Lipitor] 10 mg PO HS 04/01/17 Cholecalciferol (Vitamin D3) [Vitamin D3 -] 1,000 unit PO DAILY 04/01/17 Metoprolol Tartrate 50 mg PO BID 04/01/17 Quinapril HCl [Accupril] 5 mg PO DAILY 04/01/17 Family Disease History - Family Disease History Family History: Unremarkable Review of Systems - Review of Systems Constitutional: reports: Weakness HENT: reports: Other (Headache) Neck: reports: No Symptoms Cardiovascular: reports: No Symptoms Respiratory: reports: No Symptoms Gastrointestinal: reports: No Symptoms Genitourinary: reports: No Symptoms Neurological: reports: Headache Physical Exam Vital Signs: Vital Signs Temperature 97.9 F 04/11/17 19:00 Pulse Rate 77 04/11/17 20:20 Respiratory Rate 17 04/11/17 20:00 Blood Pressure 152/82 04/11/17 20:00 O2 Sat by Pulse Oximetry (%) 100 04/11/17 20:20 Constitutional: Yes: Well Nourished, No Distress Eyes: Yes: Other (Lt surgical pupil reactive to light) HENT: Yes: Other (Rt occipital dressing with serosang drainage) Neck: Yes: WNL Cardiovascular: Yes: WNL, Regular Rate and Rhythm Respiratory: Yes: Regular, CTA Bilaterally, On Nasal O2 Gastrointestinal: Yes: Soft (Mid abd dressing dry and intact) Renal/: Yes: Toribio Present Extremities: Yes: WNL Edema: No Peripheral Pulses WNL: Yes Wound/Incision: Yes: Dressing Dry and Intact (abd dressing dry and intact) Neurological: Yes: Alert, Oriented (oriented x3) ...Motor Strength: WNL Psychiatric: Yes: WNL Labs: CBC, BMP 04/09/17 05:40 04/10/17 06:38 CBC,CMP WBC 9.5 K/mm3 (4.0-10.0) 04/09/17 05:40 RBC 4.22 M/mm3 (4.00-5.60) 04/09/17 05:40 Hgb 13.4 GM/dL (11.7-16.9) 04/09/17 05:40 Hct 38.3 % (35.4-49) 04/09/17 05:40 MCV 90.9 fl (80-96) 04/09/17 05:40 MCH 31.7 pg (25.7-33.7) 04/09/17 05:40 MCHC 34.9 g/dl (32.0-35.9) 04/09/17 05:40 RDW 13.4 % (11.9-15.9) 04/09/17 05:40 Plt Count 211 K/MM3 (134-434) 04/09/17 05:40 MPV 8.2 fl (7.5-11.1) 04/09/17 05:40 Neutrophils % 69.6 % (42.8-82.8) 04/09/17 05:40 Lymphocytes % 19.1 % (8-40) D 04/09/17 05:40 Monocytes % 9.3 % (3.8-10.2) 04/09/17 05:40 Eosinophils % 1.6 % (0-4.5) 04/09/17 05:40 Basophils % 0.4 % (0-2.0) 04/09/17 05:40 Sodium 139 mmol/L (136-145) 04/10/17 06:38 Potassium 4.4 mmol/L (3.5-5.1) 04/10/17 06:38 Chloride 101 mmol/L (98-107) 04/10/17 06:38 Carbon Dioxide 32 mmol/L (21-32) 04/10/17 06:38 Anion Gap 6 (8-16) L 04/10/17 06:38 BUN 27 mg/dL (7-18) H 04/10/17 06:38 Creatinine 1.3 mg/dL (0.7-1.3) 04/10/17 06:38 Creat Clearance w eGFR 48.28 (>60) 04/09/17 05:40 POC Glucometer 102 UNITS (()) 04/11/17 06:00 Random Glucose 84 mg/dL (74-106) 04/10/17 06:38 Hemoglobin A1c % 5.9 % (4.8-6.0) 04/02/17 06:45 Calcium 9.3 mg/dL (8.5-10.1) 04/10/17 06:38 Total Bilirubin 1.3 mg/dL (0.2-1.0) H 04/09/17 05:40 AST 21 U/L (15-37) 04/09/17 05:40 ALT 12 U/L (12-78) D 04/09/17 05:40 Alkaline Phosphatase 76 U/L (45-117) 04/09/17 05:40 Creatine Kinase 140 IU/L (39-308) 04/02/17 06:45 Troponin I 0.09 ng/ml (0.00-0.05) H D 04/02/17 06:45 Total Protein 7.1 g/dl (6.4-8.2) 04/09/17 05:40 Albumin 3.5 g/dl (3.4-5.0) 04/09/17 05:40 Triglycerides 136 mg/dL (35-160) 04/02/17 06:45 Cholesterol 174 mg/dL (50-200) 04/02/17 06:45 Total LDL Cholesterol 119 mg/dL (5-100) H 04/02/17 06:45 HDL Cholesterol 41 mg/dL (40-60) 04/02/17 06:45 Vitamin B12 257 pg/ml (180-914) 04/03/17 06:50 Problem List - Problems (1) CAD (coronary artery disease), [place] coronary artery Code(s): I25.10 - ATHSCL HEART DISEASE OF [place] CORONARY ARTERY W/O ANG PCTRS Qualifiers: [place] vs. transplanted heart: [place] heart Associated angina: without angina Qualified Code(s): I25.10 - Atherosclerotic heart disease of [place] coronary artery without angina pectoris (2) Encounter for postoperative care Code(s): Z48.89 - ENCOUNTER FOR OTHER SPECIFIED SURGICAL AFTERCARE (3) Fall Code(s): W19.XXXA - UNSPECIFIED FALL, INITIAL ENCOUNTER Qualifiers: Encounter type: subsequent encounter Qualified Code(s): W19.XXXD - Unspecified fall, subsequent encounter (4) HTN (hypertension) Code(s): I10 - ESSENTIAL (PRIMARY) HYPERTENSION Qualifiers: Hypertension type: essential hypertension Qualified Code(s): I10 - Essential (primary) hypertension (5) Leukocytosis Code(s): D72.829 - ELEVATED WHITE BLOOD CELL COUNT, UNSPECIFIED (6) NPH (normal pressure hydrocephalus) Code(s): G91.2 - (IDIOPATHIC) NORMAL PRESSURE HYDROCEPHALUS Assessment/Plan 86 year old man with PMHx HTN, HLD, heart disease, enlarged prostate, who presented to the ED 04/01/17 following a fall when he became dizzy after urinating.CT scan head and MRI brain c/w normal pressure hydrocephalus. Symptoms were not relieved by LP and pt is now s/p ventriculoperitoneal shunt without complications. Plan: Neuro: Hydrocephalus s/p CONTROL TOWER RADIO OPERATOR shunt -neuro checks q1 -surgical incision monitoring for drainage, swelling, erythema -O2 support -Tylenol for pain management
[2017-04-11] MEDS: MUPIROCIN 2% TOPICAL OINTMENT FOR DECOLONIZATION NS SCH (21:50)
[2017-04-11] MEDS: CHLORHEXIDINE GLUCONATE 4% CLEANSER FOR DECOLONIZATION TP SCH (21:51)
[2017-04-11] MEDS: DOCUSATE SODIUM 100 MG CAPSULE (FP) PO SCH (21:51)
[2017-04-11] MEDS: ATORVASTATIN CA 10 MG TABLET (FP) PO SCH ×2 (21:51→23:10)
[2017-04-11] MEDS ORDERED: DOCUSATE SODIUM 100 MG CAPSULE (FP) PO SCH (22:00)
[2017-04-11] MEDS ORDERED: ACETAMINOPHEN 1000 MG/100 ML VIAL (NON FORMULARY) IVPB PRN (23:38)
[2017-04-12] MEDS: CEFAZOLIN (PRE-DOCKED) 50 ML IVPB SCH ×2 (03:00→10:15)
[2017-04-12 05:47] LABS: MCH 30.7 pg (25.7-33.7); MCHC 33.5 g/dl (32.0-35.9); MEAN CELL VOLUME 91.6 fl (80-96); MEAN PLT VOLUME 8.3 fl (7.5-11.1); PLATELET COUNT 212 K/MM3 (134-434); RDW 13.4 % (11.9-15.9); WHITE BLOOD COUNT 15.3 K/mm3 (4.0-10.0)
[2017-04-12] MEDS: DOCUSATE SODIUM 100 MG CAPSULE (FP) PO SCH ×3 (06:17→21:32)
[2017-04-12 06:59] LABS: ANION GAP 7 (8-16); CALCIUM 9.2 mg/dL (8.5-10.1); CO2 28 mmol/L (21-32); CREATININE 1.5 mg/dL (0.7-1.3); GLUCOSE,RANDOM 119 mg/dL (74-106)
--- NOTE | 2017-04-12 08:45 | PN ---
Physical Exam: SUBJECTIVE: Patient seen and examined. Found lying in bed in no acute distress. Patient states that he feels much better today. His headache is much better, but he continues to complain of abdominal distension. Per patient, he had a bowel movement yesterday. Patient denies chest pain, weakness, n/v, dizziness, SOB. OBJECTIVE: Vital Signs Temperature 97.6 F 04/12/17 06:00 Pulse Rate 67 04/12/17 06:00 Respiratory Rate 04/12/17 06:00 Blood Pressure 129/77 04/12/17 06:00 O2 Sat by Pulse Oximetry (%) 100 04/11/17 20:20 GENERAL: The patient is awake, alert, and fully oriented, in no acute distress. HEAD: Normal with no signs of trauma. EYES: extraocular movements intact, sclera anicteric, conjunctiva clear. No ptosis. NECK: Trachea midline, full range of motion, supple. LUNGS: Breath sounds equal, clear to auscultation bilaterally, no wheezes, no crackles, no accessory muscle use. HEART: Regular rate and rhythm, S1, S2 without murmur, rub or gallop. ABDOMEN:nontender, moderate distension, no guarding, no rebound. EXTREMITIES: 2+ pulses, warm, well-perfused, no edema. NEUROLOGICAL: Cranial nerves II through X grossly intact. Normal speech, gait not observed. Strength 5/5 in all extremities, sensory intact. PSYCH: Normal mood, normal affect. SKIN: Warm, dry, normal turgor, no rashes or lesions noted Laboratory Results - last 24 hr 04/11/17 04/11/17 04/11/17 17:45 17:45 17:45 WBC RBC Hgb Hct MCV MCH MCHC RDW Plt Count MPV Sodium Potassium Chloride Carbon Dioxide Anion Gap BUN Creatinine POC Glucometer Random Glucose Calcium CSF Appearance Clear CSF Color Colorless CSF WBC 3 CSF RBC 3 CSF Neutrophils Y CSF Glucose 63 CSF Total Protein 35 04/11/17 04/12/17 04/12/17 19:44 05:10 05:10 WBC 15.3 H D RBC 4.42 Hgb 13.5 Hct 40.5 MCV 91.6 MCH 30.7 MCHC 33.5 RDW 13.4 Plt Count 212 MPV 8.3 Sodium 140 Potassium 5.3 H D Chloride 105 Carbon Dioxide 28 Anion Gap 7 L BUN 23 H Creatinine 1.5 H POC Glucometer [id number] Random Glucose 119 H D Calcium 9.2 CSF Appearance CSF Color CSF WBC CSF RBC CSF Neutrophils CSF Glucose CSF Total Protein Active Medications Generic Name Dose Route Start Last Admin Trade Name Claudia PRN Reason Stop Dose Admin Acetaminophen 1,000 mg 04/11/17 23:38 Ofirmev Injection - IVPB 04/12/17 17:39 Q6H PRN FEVER OR PAIN Acetaminophen/Codeine Phosphate 1 tab 04/11/17 18:28 Tylenol # 3 - PO Q4H PRN PAIN Atorvastatin Calcium 10 mg 04/11/17 22:00 04/11/17 23:10 Lipitor - PO 10 mg HS [facility] Administration Carbidopa/Levodopa 1 combo 04/12/17 07:30 Sinemet *Cr* 50/200 - PO 0700,1200,1700 [facility] Chlorhexidine Gluconate 1 applic 04/11/17 22:00 04/11/17 21:51 Hibiclens For Decolonization - TP 1 applic HS [facility] Administration Cholecalciferol 1,000 unit 04/12/17 10:00 Vitamin D3 - PO DAILY [facility] Docusate Sodium 100 mg 04/11/17 22:00 04/12/17 06:17 Colace - PO Not Given TID [facility] Fentanyl 50 mcg 04/11/17 18:05 Sublimaze Injection - IVPUSH 04/14/17 18:06 [id number] PRN PAIN Cefazolin Sodium 50 mls @ 100 mls/hr 04/12/17 02:00 04/12/17 03:00 Ancef 1gm Ivpb (Pre-Docked) IVPB 04/12/17 17:59 100 mls/hr Q8H-IV [facility] Administration Pantoprazole Sodium 100 mls @ 200 mls/hr 04/12/17 10:00 Protonix 40mg Ivpb (Pre-Docked) IVPB DAILY [facility] Dextrose/Sodium Chloride 1,000 mls @ 80 mls/hr 04/11/17 18:28 04/11/17 19:30 Dextrose 5%-Normal Saline+20 Meq Kcl - IV 80 mls/hr ASDIR [facility] Administration Metoprolol Tartrate 50 mg 04/11/17 22:00 04/11/17 23:08 Lopressor - PO 50 mg BID [facility] Administration Mupirocin 1 applic 04/11/17 22:00 04/11/17 21:50 Bactroban Ointment (For Decolonization) - NS 04/16/17 21:59 1 applic BID [facility] Administration Ondansetron HCl 4 mg 04/11/17 18:28 Zofran Injection IVPB Q6H PRN NAUSEA Quinapril HCl 5 mg 04/12/17 10:00 Accupril - PO DAILY [facility] ASSESSMENT/PLAN: 86 yo m w/ PMH HTN, HLD, CAD diagnosed with normal pressure hydrocephalus. Patient is s/p insertion of CARE DIRECTOR RN shunt on 04/11. Neuro -s/p CARE DIRECTOR RN shunt for NPH -Patient is alert and orientedx3 -Head CT from 04/12 shows normal post-op changes, no acute processes or deteriorating -headache has resolved; c/w tylenol #3 PRN pain -zofran 4mg IV PRN -monitor mental status -head of bed elevated to 30 degrees as per neurosurgery Cardio -PMH HTN, HLD, CAD -BP and HR WNL; continue monitoring -c/w metoprolol 50mg and quinapril 5mg Abdominal -patient continues to have abdominal distension 2/2 to CSF acites vs post operative ileus -c/w ducosate 100mg FEN -D5 NS @ 75ml/hr -Potassium 5.3, likely secondary to potassium supplementation -NPO as per neurosurgery Prophylaxsis -SCDs for DVT prophylaxsis -Protonix 40mg IVPB Daily Dispo -monitor in ICU Problem List - Problems (1) Encounter for postoperative care Code(s): Z48.89 - ENCOUNTER FOR OTHER SPECIFIED SURGICAL AFTERCARE (2) HTN (hypertension) Code(s): I10 - ESSENTIAL (PRIMARY) HYPERTENSION Qualifiers: Hypertension type: essential hypertension Qualified Code(s): I10 - Essential (primary) hypertension (3) NPH (normal pressure hydrocephalus) Code(s): G91.2 - (IDIOPATHIC) NORMAL PRESSURE HYDROCEPHALUS (4) Abdominal distension Code(s): R14.0 - ABDOMINAL DISTENSION (GASEOUS) Visit type - Emergency Visit Emergency Visit: Yes ED Registration Date: 04/01/17 Care time: The patient presented to the Emergency Department on the above date and was hospitalized for further evaluation of their emergent condition. - New Patient This patient is new to me today: Yes Date on this admission: 04/12/17 - Critical Care Critical Care patient: Yes Total Critical Care Time (in minutes): 35 Critical Care Statement: The care of this patient involved high complexity decision making to prevent further life threatening deterioration of the patient 's condition and/or to evalute & treat vital organ system(s) failure or risk of failure.
--- NOTE | 2017-04-12 08:47 | PN ---
Progress Note (short form) - Note Progress Note: NEUROSURGERY POD #1 In ICU Feels "stronger and could walk" No H/A; No N/V PE: Tmax 97.8, AF, VSS HEENT- NC/AT; Neck- supple; Cor- RRR; Lungs- CTA; Abd- benign, + BS; Ext- no sign of DVT A/A/Ox3 CN- decreased hearing B; Motor- 4+-5/5 without drift; Sensation- intact LT HOB [address] stable NPO for now
[2017-04-12] MEDS ORDERED: PANTOPRAZOLE SODIUM 100 ML IVPB SCH (10:00)
[2017-04-12] MEDS: CHOLECALCIFEROL (VITAMIN D3) 1,000 UNIT TABLET (FP) PO SCH (10:13)
[2017-04-12] MEDS: METOPROLOL TARTRATE 50 MG TABLET (FP) PO SCH ×2 (10:13→21:33)
[2017-04-12] MEDS: PANTOPRAZOLE SODIUM 100 ML IVPB SCH (10:13)
[2017-04-12] MEDS: MUPIROCIN 2% TOPICAL OINTMENT FOR DECOLONIZATION NS SCH ×2 (10:14→21:32)
[2017-04-12] MEDS ORDERED: PT OWN MED DRAWER 7, Y5N ONE (10:20)
[2017-04-12] MEDS: QUINAPRIL HCL 5 MG TABLET (FP) PO SCH (10:21)
--- NOTE | 2017-04-12 11:06 | PN ---
Teaching Attending Note Name of Resident: Kermit Person ATTENDING PHYSICIAN STATEMENT I saw and evaluated the patient. I reviewed the resident's note and discussed the case with the resident. I agree with the resident's findings and plan as documented. SUBJECTIVE: Pt seen and examined in the ICU. s/p SUEDING AND BUFFING MACHINE OPERATOR shunt. Denies headache, nausea or vomiting. OBJECTIVE: Last Vital Signs Temp Pulse Resp BP Pulse Ox 97.6 F 67 17 129/77 100 04/12/17 06:00 04/12/17 06:00 04/12/17 06:00 04/12/17 06:00 04/11/17 20:20 Intake & Output 04/09/17 04/10/17 04/11/17 04/12/17 23:59 23:59 23:59 23:59 Intake Total 1200 1470 1690 1010 Output Total 1450 1650 1400 1500 Balance -250 -180 290 -490 Weight 207 lb 5 oz 207 lb 4 oz 205 lb 9.6 oz 206 lb 9.6 oz Gen: NAD at rest Heart: RRR Lung: decreased breath sounds at the bases Abd: soft, nontender Ext: no edema CBC, BMP 04/12/17 05:10 04/12/17 05:10 Active Medications Acetaminophen (Ofirmev Injection -) 1,000 mg IVPB Q6H PRN PRN Reason: FEVER OR PAIN Stop: 04/12/17 17:39 Acetaminophen/Codeine Phosphate (Tylenol # 3 -) 1 tab PO Q4H PRN PRN Reason: PAIN Atorvastatin Calcium (Lipitor -) 10 mg PO HS [facility] Last Admin: 04/11/17 23:10 Dose: 10 mg Carbidopa/Levodopa (Sinemet *Cr* 50/200 -) 1 combo PO 0700,1200,1700 [facility] Last Admin: 04/12/17 10:13 Dose: 1 combo Chlorhexidine Gluconate (Hibiclens For Decolonization -) 1 applic TP HS [facility] Last Admin: 04/11/17 21:51 Dose: 1 applic Cholecalciferol (Vitamin D3 -) 1,000 unit PO DAILY [facility] Last Admin: 04/12/17 10:13 Dose: 1,000 unit Docusate Sodium (Colace -) 100 mg PO TID [facility] Last Admin: 04/12/17 06:17 Dose: Not Given Fentanyl (Sublimaze Injection -) 50 mcg IVPUSH [id number] PRN PRN Reason: PAIN Stop: 04/14/17 18:06 Cefazolin Sodium (Ancef 1gm Ivpb (Pre-Docked)) 50 mls @ 100 mls/hr IVPB Q8H-IV [facility] Stop: 04/12/17 17:59 Last Admin: 04/12/17 10:15 Dose: 100 mls/hr Pantoprazole Sodium (Protonix 40mg Ivpb (Pre-Docked)) 100 mls @ 200 mls/hr IVPB DAILY [facility] Last Admin: 04/12/17 10:13 Dose: 200 mls/hr Dextrose/Sodium Chloride (Dextrose 5%-Normal Saline+20 Meq Kcl -) 1,000 mls @ 80 mls/hr IV ASDIR [facility] Last Admin: 04/11/17 19:30 Dose: 80 mls/hr Metoprolol Tartrate (Lopressor -) 50 mg PO BID [facility] Last Admin: 04/12/17 10:13 Dose: 50 mg Mupirocin (Bactroban Ointment (For Decolonization) -) 1 applic NS BID [facility] Stop: 04/16/17 21:59 Last Admin: 04/12/17 10:14 Dose: 1 applic Ondansetron HCl (Zofran Injection) 4 mg IVPB Q6H PRN PRN Reason: NAUSEA Quinapril HCl (Accupril -) 5 mg PO DAILY [facility] Last Admin: 04/12/17 10:21 Dose: 5 mg ASSESSMENT AND PLAN: Normal Pressure Hydrocephalus s/p SUEDING AND BUFFING MACHINE OPERATOR shunt HTN Hyperlipidemia Parkinsons Disease - neuro checks - pain control - change IVF to D5NS - monitor lytes - PO per surgery - DVT prophylaxis - can monitor on surgical floor when ok with surgery
[2017-04-12] MEDS: DEXTROSE 5%-NORMAL SALINE 1,000 ML IV SCH (12:46)
--- NOTE | 2017-04-12 12:59 | PN ---
Progress Note (short form) - Note Progress Note: NEUROLOGY F/U: Events and neuroimaging reviewed. Pt examined. Discussed with ICU staff. Pt is doing well s/p BOTANY TEACHER shunt on Tuesday. C/O mild headache, not requiring Rx. Eager to try to walk. CT of head (reviewed): shows the BOTANY TEACHER shunt via Right parietal sophia hole with the tip in the left lateral ventricle. 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 Moderate, diffuse atrophy. Calcification of the Basal ganglia, symmetrically. [place]: R parietal bur hole with subgaleal edema. NEURO: Awake, alert, Ox3 CN II-XII normal Motor: No tremor. Normal strength. No drift. Reduced cogwheel rigidity. Normal reflexes. Feels touch throughout. IMP: NPH. Doing well s/p BOTANY TEACHER shunt. Extrapyramidal features, improved. SUGGEST: Mobilize OOB to chair and PT for gait as soon as cleared by Dr. Gold. Continue Sinemet CR 50/200 PO TID @ 7, 12, and 5 for now. THank you very much, Mal Voss MD
--- NOTE | 2017-04-12 13:26 | PN ---
Progress Note (short form) - Note Progress Note: POD #1 - s/p V-P shunt under general anesthesia. Pt. doing well, resting comfortably in bed. VSS. No complaints. Good pain control. No apparent anesthetic complications noted. Continue current care.
--- NOTE | 2017-04-12 14:12 | PN ---
Progress Note, Physician Chief Complaint: Cardiology FU Telem NSR with brief run of regular SVT. No afib or pauses. History of Present Illness: 86 M with stable remote history of CAD. Echo normal EF, mild aortic stenosis. Holter is unremarkable. - Current Medication List Current Medications: Active Medications Acetaminophen (Ofirmev Injection -) 1,000 mg IVPB Q6H PRN PRN Reason: FEVER OR PAIN Stop: 04/12/17 17:39 Acetaminophen/Codeine Phosphate (Tylenol # 3 -) 1 tab PO Q4H PRN PRN Reason: PAIN Atorvastatin Calcium (Lipitor -) 10 mg PO HS [facility] Last Admin: 04/11/17 23:10 Dose: 10 mg Carbidopa/Levodopa (Sinemet *Cr* 50/200 -) 1 combo PO 0700,1200,1700 [facility] Last Admin: 04/12/17 12:44 Dose: 1 combo Chlorhexidine Gluconate (Hibiclens For Decolonization -) 1 applic TP HS [facility] Last Admin: 04/11/17 21:51 Dose: 1 applic Cholecalciferol (Vitamin D3 -) 1,000 unit PO DAILY [facility] Last Admin: 04/12/17 10:13 Dose: 1,000 unit Docusate Sodium (Colace -) 100 mg PO TID [facility] Last Admin: 04/12/17 06:17 Dose: Not Given Fentanyl (Sublimaze Injection -) 50 mcg IVPUSH [id number] PRN PRN Reason: PAIN Stop: 04/14/17 18:06 Cefazolin Sodium (Ancef 1gm Ivpb (Pre-Docked)) 50 mls @ 100 mls/hr IVPB Q8H-IV [facility] Stop: 04/12/17 17:59 Last Admin: 04/12/17 10:15 Dose: 100 mls/hr Pantoprazole Sodium (Protonix 40mg Ivpb (Pre-Docked)) 100 mls @ 200 mls/hr IVPB DAILY [facility] Last Admin: 04/12/17 10:13 Dose: 200 mls/hr Dextrose/Sodium Chloride (D5-Ns -) 1,000 mls @ 75 mls/hr IV ASDIR [facility] Last Admin: 04/12/17 12:46 Dose: 75 mls/hr Metoprolol Tartrate (Lopressor -) 50 mg PO BID [facility] Last Admin: 04/12/17 10:13 Dose: 50 mg Mupirocin (Bactroban Ointment (For Decolonization) -) 1 applic NS BID [facility] Stop: 04/16/17 21:59 Last Admin: 04/12/17 10:14 Dose: 1 applic Ondansetron HCl (Zofran Injection) 4 mg IVPB Q6H PRN PRN Reason: NAUSEA Quinapril HCl (Accupril -) 5 mg PO DAILY [facility] Last Admin: 04/12/17 10:21 Dose: 5 mg - Objective Vital Signs: Vital Signs Temperature 97.6 F 04/12/17 06:00 Pulse Rate 67 04/12/17 06:00 Respiratory Rate 04/12/17 06:00 Blood Pressure 129/77 04/12/17 06:00 O2 Sat by Pulse Oximetry (%) 100 04/11/17 20:20 Constitutional: Yes: Well Nourished, No Distress, Calm Eyes: Yes: WNL, Conjunctiva Clear, EOM Intact HENT: Yes: WNL Neck: Yes: Supple, Trachea Midline Cardiovascular: Yes: Regular Rate and Rhythm Respiratory: Yes: Regular, CTA Bilaterally Gastrointestinal: Yes: Normal Bowel Sounds Edema: No Peripheral Pulses WNL: Yes Labs: CBC, BMP 04/12/17 05:10 04/12/17 05:10 INR, PTT INR 1.10 (0.82-1.09) 04/07/17 05:35 Problem List - Problems (1) CAD (coronary artery disease), [place] coronary artery Code(s): I25.10 - ATHSCL HEART DISEASE OF [place] CORONARY ARTERY W/O ANG PCTRS Qualifiers: [place] vs. transplanted heart: [place] heart Associated angina: without angina Qualified Code(s): I25.10 - Atherosclerotic heart disease of [place] coronary artery without angina pectoris (2) Tachycardia Code(s): R00.0 - TACHYCARDIA, UNSPECIFIED Assessment/Plan 86 M with stable chronic CAD and mild Aortic stenosis with dizziness and sp METAL WINDOW FRAME MAKER shunt. Continue with Beta thee therapy for transient and self limited SVT. ASA is on hold until cleared by neurosurgery. Will see as needed.
--- NOTE | 2017-04-12 17:42 | PN ---
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 Had spinal tap with no relief of symptoms. He does not feel any different than before the tap. S/P C4 PLANNER shunt. feeling better and stronger, wants to get out of bed. - Current Medication List Current Medications: Active Medications Acetaminophen (Ofirmev Injection -) 1,000 mg IVPB Q6H PRN PRN Reason: FEVER OR PAIN Stop: 04/12/17 17:39 Acetaminophen/Codeine Phosphate (Tylenol # 3 -) 1 tab PO Q4H PRN PRN Reason: PAIN Atorvastatin Calcium (Lipitor -) 10 mg PO HS [facility] Last Admin: 04/11/17 23:10 Dose: 10 mg Carbidopa/Levodopa (Sinemet *Cr* 50/200 -) 1 combo PO 0700,1200,1700 [facility] Last Admin: 04/12/17 17:02 Dose: 1 combo Chlorhexidine Gluconate (Hibiclens For Decolonization -) 1 applic TP [facility] Last Admin: 04/11/17 21:51 Dose: 1 applic Cholecalciferol (Vitamin D3 -) 1,000 unit PO DAILY [facility] Last Admin: 04/12/17 10:13 Dose: 1,000 unit Docusate Sodium (Colace -) 100 mg PO TID [facility] Last Admin: 04/12/17 14:45 Dose: 100 mg Fentanyl (Sublimaze Injection -) 50 mcg IVPUSH [id number] PRN PRN Reason: PAIN Stop: 04/14/17 18:06 Cefazolin Sodium (Ancef 1gm Ivpb (Pre-Docked)) 50 mls @ 100 mls/hr IVPB Q8H-IV [facility] Stop: 04/12/17 17:59 Last Admin: 04/12/17 10:15 Dose: 100 mls/hr Pantoprazole Sodium (Protonix 40mg Ivpb (Pre-Docked)) 100 mls @ 200 mls/hr IVPB DAILY [facility] Last Admin: 04/12/17 10:13 Dose: 200 mls/hr Dextrose/Sodium Chloride (D5-Ns -) 1,000 mls @ 75 mls/hr IV ASDIR [facility] Last Admin: 04/12/17 12:46 Dose: 75 mls/hr Metoprolol Tartrate (Lopressor -) 50 mg PO BID [facility] Last Admin: 04/12/17 10:13 Dose: 50 mg Mupirocin (Bactroban Ointment (For Decolonization) -) 1 applic NS BID [facility] Stop: 04/16/17 21:59 Last Admin: 04/12/17 10:14 Dose: 1 applic Ondansetron HCl (Zofran Injection) 4 mg IVPB Q6H PRN PRN Reason: NAUSEA Quinapril HCl (Accupril -) 5 mg PO DAILY [facility] Last Admin: 04/12/17 10:21 Dose: 5 mg - Objective Vital Signs: Vital Signs Temperature 97.6 F 04/12/17 06:00 Pulse Rate 67 04/12/17 14:00 Respiratory Rate 18 04/12/17 14:00 Blood Pressure 114/54 04/12/17 14:00 O2 Sat by Pulse Oximetry (%) 100 04/12/17 12:00 Constitutional: Yes: Well Nourished, No Distress, Calm Cardiovascular: Yes: Regular Rate and Rhythm Respiratory: Yes: Regular Gastrointestinal: Yes: Normal Bowel Sounds Musculoskeletal: Yes: WNL Extremities: Yes: WNL Edema: No Peripheral Pulses WNL: Yes Labs: CBC, BMP 04/12/17 05:10 04/12/17 05:10 INR, PTT INR 1.10 (0.82-1.09) 04/07/17 05:35 Problem List - Problems (1) NPH (normal pressure hydrocephalus) Assessment/Plan: -still weak, seen by Physical Therapy -s/p vp software engineering shunt -CT head reviewed -seen by neurology Code(s): G91.2 - (IDIOPATHIC) NORMAL PRESSURE HYDROCEPHALUS (2) Unable to ambulate Assessment/Plan: -to be seen by Physical Therapy s/p shunt once cleared by Dr ventura Code(s): R26.2 - DIFFICULTY IN WALKING, NOT ELSEWHERE CLASSIFIED (3) Leukocytosis Code(s): D72.829 - ELEVATED WHITE BLOOD CELL COUNT, UNSPECIFIED Assessment/Plan -pain management -physical therapy -GI/DVT prophylaxis -labs in AM -IVF
[2017-04-12] MEDS: CHLORHEXIDINE GLUCONATE 4% CLEANSER FOR DECOLONIZATION TP SCH (21:32)
[2017-04-12] MEDS: ATORVASTATIN CA 10 MG TABLET (FP) PO SCH (21:33)
[2017-04-13 06:10] LABS: MCH 30.9 pg (25.7-33.7); MCHC 33.5 g/dl (32.0-35.9); MEAN CELL VOLUME 92.1 fl (80-96); MEAN PLT VOLUME 8.3 fl (7.5-11.1); PLATELET COUNT 190 K/MM3 (134-434); RDW 13.5 % (11.9-15.9); WHITE BLOOD COUNT 10.8 K/mm3 (4.0-10.0)
[2017-04-13] MEDS: DOCUSATE SODIUM 100 MG CAPSULE (FP) PO SCH ×3 (06:24→22:15)
[2017-04-13 06:36] LABS: ALBUMIN 3.2 g/dl (3.4-5.0); ANION GAP 8 (8-16); CALCIUM 8.7 mg/dL (8.5-10.1); CO2 28 mmol/L (21-32); CREATININE 1.4 mg/dL (0.7-1.3); GLUCOSE,RANDOM 109 mg/dL (74-106); SGOT/AST 17 U/L (15-37); SGPT/ALT 12 U/L (12-78)
[2017-04-13 06:38] LABS: ALK PHOS 76 U/L (45-117); BILIRUBIN,TOTAL 1.7 mg/dL (0.2-1.0); TOT PROT 6.4 g/dl (6.4-8.2)
--- NOTE | 2017-04-13 08:33 | PN ---
Progress Note (short form) - Note Progress Note: NEUROSURGERY POD #2 In ICU Feels stronger and would like to get OOB No H/A; No N/V PE: Tmax 99.2, AF, VSS HEENT- NC/AT; Neck- supple; Cor- RRR; Lungs- CTA; Abd- benign, + BS; Ext- no sign of DVT Incisions c/d/i- dressing changed A/A/Ox3 CN- decreased hearing B; Motor- 4+-5/5 without drift; Sensation- intact LT Head CT- stable appearance, cathether in satisfactory position CSF (OR)- gram stain negative, culture pending Cont head elevation to 45 this am and OOB this afternoon Adv diet D/C Toribio PT Cont iv abx for WBC elevation F/U CBC
--- NOTE | 2017-04-13 08:41 | PN ---
Physical Exam: SUBJECTIVE: Patient seen and examined. He states that his headache has improved , but is concerned that he has been in bed for several days and believes his legs and arms are getting weaker. OBJECTIVE: Vital Signs Temperature 98 F 04/13/17 06:00 Pulse Rate 88 04/13/17 06:00 Respiratory Rate 18 04/13/17 08:17 Blood Pressure 140/77 04/13/17 06:00 O2 Sat by Pulse Oximetry (%) 96 04/12/17 20:00 GENERAL: The patient is awake, alert, and fully oriented, in no acute distress. HEAD: Normal with no signs of trauma. Bandage in occipital area from surgery EYES: PERRL, extraocular movements intact, sclera anicteric, conjunctiva clear. No ptosis. NECK: Trachea midline, full range of motion, supple. LUNGS: Breath sounds equal, clear to auscultation bilaterally, no wheezes, no crackles, no accessory muscle use. HEART: Regular rate and rhythm, S1, S2 without murmur, rub or gallop. ABDOMEN: Soft, tenderness in right upper and lower quadrants, distended ( imporved from yesterday), normoactive bowel sounds, no guarding, no rebound. EXTREMITIES: 2+ pulses, warm, well-perfused, no edema. NEUROLOGICAL: Cranial nerves II through XII grossly intact. Normal speech, gait not observed. Strength 5/5 in upper extremities, 4/5 in lower extremities. Sensation intact. PSYCH: Normal mood, normal affect. SKIN: Warm, dry, normal turgor, no rashes or lesions noted Laboratory Results - last 24 hr 04/13/17 04/13/17 05:20 05:20 WBC 10.8 H RBC 4.35 Hgb 13.4 Hct 40.1 MCV 92.1 MCH 30.9 MCHC 33.5 RDW 13.5 Plt Count 190 MPV 8.3 Sodium 140 Potassium 4.4 Chloride 104 Carbon Dioxide 28 Anion Gap 8 BUN 15 D Creatinine 1.4 H Creat Clearance w eGFR 48.28 Random Glucose 109 H Calcium 8.7 Total Bilirubin 1.7 H D AST 17 ALT 12 Alkaline Phosphatase 76 Total Protein 6.4 Albumin 3.2 L Active Medications Generic Name Dose Route Start Last Admin Trade Name Freq PRN Reason Stop Dose Admin Acetaminophen/Codeine Phosphate 1 tab 04/11/17 18:28 Tylenol # 3 - PO Q4H PRN PAIN Atorvastatin Calcium 10 mg 04/11/17 22:00 04/12/17 21:33 Lipitor - PO 10 mg HS [facility] Administration Carbidopa/Levodopa 1 combo 04/12/17 07:30 04/13/17 06:24 Sinemet *Cr* 50/200 - PO 1 combo 0700,1200,1700 [facility] Administration Chlorhexidine Gluconate 1 applic 04/11/17 22:00 04/12/17 21:32 Hibiclens For Decolonization - TP 1 applic HS [facility] Administration Cholecalciferol 1,000 unit 04/12/17 10:00 04/12/17 10:13 Vitamin D3 - PO 1,000 unit DAILY [facility] Administration Docusate Sodium 100 mg 04/11/17 22:00 04/13/17 06:24 Colace - PO 100 mg TID [facility] Administration Fentanyl 50 mcg 04/11/17 18:05 Sublimaze Injection - IVPUSH 04/14/17 18:06 [id number] PRN PAIN Pantoprazole Sodium 100 mls @ 200 mls/hr 04/12/17 10:00 04/12/17 10:13 Protonix 40mg Ivpb (Pre-Docked) IVPB 200 mls/hr DAILY [facility] Administration Dextrose/Sodium Chloride 1,000 mls @ 75 mls/hr 04/12/17 11:15 04/12/17 12:46 D5-Ns - IV 75 mls/hr ASDIR [facility] Administration Cefazolin Sodium 50 mls @ 100 mls/hr 04/13/17 10:00 Ancef 1gm Ivpb (Pre-Docked) IVPB Q8H-IV [facility] Metoprolol Tartrate 50 mg 04/11/17 22:00 04/12/17 21:33 Lopressor - PO 50 mg BID [facility] Administration Mupirocin 1 applic 04/11/17 22:00 04/12/17 21:32 Bactroban Ointment (For Decolonization) - NS 04/16/17 21:59 1 applic BID [facility] Administration Ondansetron HCl 4 mg 04/11/17 18:28 Zofran Injection IVPB Q6H PRN NAUSEA Quinapril HCl 5 mg 04/12/17 10:00 04/12/17 10:21 Accupril - PO 5 mg DAILY [facility] Administration ASSESSMENT/PLAN: 86 yo m w/ PMH HTN, HLD, CAD diagnosed with normal pressure hydrocephalus. Patient is s/p insertion of PENSION MANAGER shunt on 04/11. Neuro -s/p PENSION MANAGER shunt for NPH -Patient is alert and oriented x3 -headache 3/5 today; improved. c/w tylenol #3 PRN pain -zofran 4mg IV PRN -monitor mental status -head of bed elevated to 30 degrees as per neurosurgery -will consult Physical Therapy today Hematology -whites still elevated today; trending down -c/w Ancef 1g IVPB Cardio -PMH HTN, HLD, CAD -BP and HR WNL; continue monitoring -c/w metoprolol 50mg and quinapril 5mg GI -patient continues to have abdominal distension (improving) 2/2 to CSF acites vs post operative ileus -c/w ducosate 100mg -Patient' tbili mildly elevated today (1.7); will trend tomorrow and check direct bili Urinary -d/c valentin FEN -D5 NS @ 75ml/hr -Potassium 4.3 today -clear liquid diet Prophylaxsis -SCDs for DVT prophylaxsis -d/c'd Protonix 40mg IVPB Daily Dispo -monitor in ICU Problem List - Problems (1) Encounter for postoperative care Code(s): Z48.89 - ENCOUNTER FOR OTHER SPECIFIED SURGICAL AFTERCARE (2) HTN (hypertension) Code(s): I10 - ESSENTIAL (PRIMARY) HYPERTENSION Qualifiers: Hypertension type: essential hypertension Qualified Code(s): I10 - Essential (primary) hypertension (3) NPH (normal pressure hydrocephalus) Code(s): G91.2 - (IDIOPATHIC) NORMAL PRESSURE HYDROCEPHALUS (4) Abdominal distension Code(s): R14.0 - ABDOMINAL DISTENSION (GASEOUS) (5) Leukocytosis Code(s): D72.829 - ELEVATED WHITE BLOOD CELL COUNT, UNSPECIFIED (6) Unable to ambulate Code(s): R26.2 - DIFFICULTY IN WALKING, NOT ELSEWHERE CLASSIFIED Visit type - Emergency Visit Emergency Visit: Yes ED Registration Date: 04/01/17 Care time: The patient presented to the Emergency Department on the above date and was hospitalized for further evaluation of their emergent condition. - New Patient This patient is new to me today: No - Critical Care Critical Care patient: Yes Total Critical Care Time (in minutes): 35 Critical Care Statement: The care of this patient involved high complexity decision making to prevent further life threatening deterioration of the patient 's condition and/or to evalute & treat vital organ system(s) failure or risk of failure.
[2017-04-13] MEDS ORDERED: PT OWN MED DRAWER 7, Y5N ONE ×3 (09:27→16:27)
[2017-04-13] MEDS: QUINAPRIL HCL 5 MG TABLET (FP) PO SCH (09:30)
[2017-04-13] MEDS: CEFAZOLIN (PRE-DOCKED) 50 ML IVPB SCH ×2 (09:30→17:12)
[2017-04-13] MEDS: MUPIROCIN 2% TOPICAL OINTMENT FOR DECOLONIZATION NS SCH ×2 (09:30→22:14)
[2017-04-13] MEDS: METOPROLOL TARTRATE 50 MG TABLET (FP) PO SCH ×2 (09:32→22:15)
[2017-04-13] MEDS: PANTOPRAZOLE SODIUM 100 ML IVPB SCH (09:35)
--- NOTE | 2017-04-13 10:26 | PN ---
Teaching Attending Note Name of Resident: Kermit Person ATTENDING PHYSICIAN STATEMENT I saw and evaluated the patient. I reviewed the resident's note and discussed the case with the resident. I agree with the resident's findings and plan as documented. SUBJECTIVE: Pt seen and examined in the ICU. More alert, awake today. No current complaints. No headache, nausea or vomiting. OBJECTIVE: Last Vital Signs Temp Pulse Resp BP Pulse Ox 98.0 F 75 22 140/79 96 04/13/17 10:00 04/13/17 10:00 04/13/17 10:00 04/13/17 10:00 04/12/17 20:00 Intake & Output 04/10/17 04/11/17 04/12/17 04/13/17 23:59 23:59 23:59 23:59 Intake Total 1470 1690 2720 950 Output Total 1650 1400 3100 1200 Balance -180 290 -380 -250 Weight 207 lb 4 oz 205 lb 9.6 oz 206 lb 9.6 oz 205 lb 12.8 oz Gen: NAD at rest HEENT: dressings dry, intact Heart: RRR Lung: decreased breath sounds at the bases Abd: soft, nontender Ext: no edema CBC, BMP 04/13/17 05:20 04/13/17 05:20 Active Medications Acetaminophen/Codeine Phosphate (Tylenol # 3 -) 1 tab PO Q4H PRN PRN Reason: PAIN Atorvastatin Calcium (Lipitor -) 10 mg PO HS [facility] Last Admin: 04/12/17 21:33 Dose: 10 mg Carbidopa/Levodopa (Sinemet *Cr* 50/200 -) 1 combo PO 0700,1200,1700 [facility] Last Admin: 04/13/17 06:24 Dose: 1 combo Chlorhexidine Gluconate (Hibiclens For Decolonization -) 1 applic TP HS [facility] Last Admin: 04/12/17 21:32 Dose: 1 applic Cholecalciferol (Vitamin D3 -) 1,000 unit PO DAILY [facility] Last Admin: 04/12/17 10:13 Dose: 1,000 unit Docusate Sodium (Colace -) 100 mg PO TID [facility] Last Admin: 04/13/17 06:24 Dose: 100 mg Fentanyl (Sublimaze Injection -) 50 mcg IVPUSH [id number] PRN PRN Reason: PAIN Stop: 04/14/17 18:06 Pantoprazole Sodium (Protonix 40mg Ivpb (Pre-Docked)) 100 mls @ 200 mls/hr IVPB DAILY [facility] Last Admin: 04/13/17 09:35 Dose: 200 mls/hr Dextrose/Sodium Chloride (D5-Ns -) 1,000 mls @ 75 mls/hr IV ASDIR [facility] Last Admin: 04/12/17 12:46 Dose: 75 mls/hr Cefazolin Sodium (Ancef 1gm Ivpb (Pre-Docked)) 50 mls @ 100 mls/hr IVPB Q8H-IV [facility] Last Admin: 04/13/17 09:30 Dose: 100 mls/hr Metoprolol Tartrate (Lopressor -) 50 mg PO BID [facility] Last Admin: 04/13/17 09:32 Dose: 50 mg Mupirocin (Bactroban Ointment (For Decolonization) -) 1 applic NS BID [facility] Stop: 04/16/17 21:59 Last Admin: 04/13/17 09:30 Dose: 1 applic Ondansetron HCl (Zofran Injection) 4 mg IVPB Q6H PRN PRN Reason: NAUSEA Quinapril HCl (Accupril -) 5 mg PO DAILY [facility] Last Admin: 04/13/17 09:30 Dose: 5 mg ASSESSMENT AND PLAN: Normal Pressure Hydrocephalus s/p PARTITION MAKING MACHINE OPERATOR shunt HTN Hyperlipidemia Parkinsons Disease - neuro checks - pain control - IVF - monitor lytes - PO per surgery - rehab/PT - DVT prophylaxis - can monitor on surgical floor when ok with surgery
--- NOTE | 2017-04-13 11:48 | OP ---
DATE OF OPERATION: 04/11/2017 PREOPERATIVE DIAGNOSIS: Normal pressure hydrocephalus. POSTOPERATIVE DIAGNOSIS: Normal pressure hydrocephalus. ATTENDING SURGEON: Juan Gold MD ALARM SIGNAL OPERATOR: MANDI Ferrer PROCEDURE: Right parietal ventriculoperitoneal shunt with Medtronic Delta valve performance level 1.0 (17543). ANESTHESIA: Isadora Boswell MD and Sam Bose MD. ESTIMATED BLOOD LOSS: 10 mL FINDINGS: Clear CSF. INDICATION: The patient is an 86-year-old right-handed male with a history of progressive ataxia over the past 6 months. He was found on a CT scan and then on MRI examination to have enlarged ventricles, somewhat out of proportion to the degree of atrophy. He had presented with a clinical triad of gait disturbance, urinary incontinence and more recently memory difficulty. Because of these symptoms consistent with NPH, he was offered a possible shunt procedure for his hydrocephalus. Unfortunately, the diagnostic study was not helpful, as only 3 mL of CSF were withdrawn by special procedure. The pros and cons of treatment approaches were discussed and patient is opting for surgery. The risks of the procedure include , but are not limited to, bleeding, infection, shunt malfunction, shunt infection, pulmonary injury, abdominal vessel injury, vascular injury and other risks of general anesthesia. The patient understands the indication for the procedure. He also understood the alternatives to the treatment of his cranial condition and wished to proceed. No guarantees were given for a favorable outcome. PROCEDURE IN DETAIL: After the patient was taken to the operating room, he was placed in supine position. After general anesthesia was induced and appropriate lines were placed, a Toribio catheter was inserted. The head was turned towards the left and a chest roll was placed on the right side. The right parieto-occipital region was clipped and cleaned with alcohol. The entire right side of the neck, chest and abdominal region was similarly cleaned with alcohol. Next, 10/10 drapes were applied. The entry point of the bur hole was approximately 3 cm posterior to the top of the right auricle and about 3 cm higher than the top of the right auricle. A curvilinear [id number] incision was planned. A right-sided abdominal incision was centered approximately 1 inch lateral and 1 inch superior to the umbilicus. After the patient was sterilely prepped and draped and anesthesia was induced per Anesthesia, the right parietal incision was infiltrated with 7 mL of 1% Xylocaine with epinephrine. The scalp incision was opened with a number 10 blade and self-retaining retractors were inserted. The bur hole position was marked with monopolar electrocautery and the high-speed pneumatic drill was used to create a small bur hole. The underlying dura was coagulated with bipolar electrocautery. The dura was opened using a number 11 blade and the dural edges were coagulated with bipolar electrocautery. A ventricular catheter was inserted and approximately 4 cm from the outer table of the skull, CSF was encountered. The stylet was removed and the catheter was threaded anteriorly toward the body of the right lateral ventricle. At this point, clear CSF was obtained and sent for glucose, protein, cell count, Gram stain and culture. A right-angle connector was secured to the outer table of the skull at about 10 cm. The flanges were secured with 2-0 silk sutures. At this point, the wound was irrigated with antibiotic-containing saline and the ventricular catheter was connected to a Qumastronic Performance 1.0 level valve. Extra waste tubing was attached and clamped with rubber clamp to prevent overdrainage of CSF. A right-side abdominal incision was opened at this time with a number 10 blade. A self-retaining retractor was then inserted. A fairly deep exposure was encountered. The anterior rectus sheath was split in a longitudinal fashion with cutting current, and dissection proceeded within the fibers to the rectus muscle, down to the anterior posterior rectus sheath/peritoneum. At this point, the retractor was removed, and a shunt passer was used from the right abdominal incision in one single attempt into the right parietal bur hole area. The peritoneal catheter was threaded through the shunt passer from caudal to cephalad. It was then flushed with saline. At this point, the distal catheter was connected to the valve and both connections, both proximal and distal, were secured with 2-0 silk ties. CSF was draining from the distal catheter once it was lowered below the head level. At this point, the cranial incision was irrigated with copious amount of irrigation. Attention was then turned to the abdominal incision. Under retraction, the fused posterior sheath/peritoneum was opened with a number 11 blade. A number 4 [place] dissector was used to palpate the intraperitoneal space and peritoneal fat was noted. The distal catheter was then threaded under direct vision into the peritoneum. A 3-0 Vicryl suture was used to close the peritoneum around the catheter. At this point, both incisions were irrigated by antibiotic-containing saline solution with continuous irrigation. Subcutaneous fascia was closed with 3-0 Vicryl sutures, and the abdominal incisions were closed with 4-0 Monocryl suture. Steri-Strips were applied there. The right-sided parietal scalp incision was closed with 3-0 nylon interrupted suture. Sterile occlusive dressing was applied for both incisions. The patient tolerated the procedure well and was extubated in the operating room. He denies any headache in the recovery room. He was moving bilateral upper and lower extremities well. All needle and lap counts were correct. A skull x-ray was obtained while the patient was still under general anesthesia, which demonstrated the catheter to be coursing anteriorly. OR timeout protocol was followed. IV abx was given pre-operatively. JUAN GOLD M.D. [id number] MTDD
[2017-04-13] MEDS: DEXTROSE 5%-NORMAL SALINE 1,000 ML IV SCH (11:55)
[2017-04-13] MEDS: CHOLECALCIFEROL (VITAMIN D3) 1,000 UNIT TABLET (FP) PO SCH ×2 (16:25→22:16)
--- NOTE | 2017-04-13 17:43 | PN ---
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 Had spinal tap with no relief of symptoms. He does not feel any different than before the tap. S/P CUSTOMER SERVICE ATTENDANT shunt. feeling better and stronger, wants to get out of bed. - Current Medication List Current Medications: Active Medications Acetaminophen/Codeine Phosphate (Tylenol # 3 -) 1 tab PO Q4H PRN PRN Reason: PAIN Atorvastatin Calcium (Lipitor -) 10 mg PO [facility] Last Admin: 04/12/17 21:33 Dose: 10 mg Carbidopa/Levodopa (Sinemet *Cr* 50/200 -) 1 combo PO 0700,1200,1700 [facility] Last Admin: 04/13/17 16:29 Dose: 1 combo Chlorhexidine Gluconate (Hibiclens For Decolonization -) 1 applic TP [facility] Last Admin: 04/12/17 21:32 Dose: 1 applic Cholecalciferol (Vitamin D3 -) 1,000 unit PO DAILY [facility] Last Admin: 04/13/17 16:25 Dose: Not Given Docusate Sodium (Colace -) 100 mg PO TID [facility] Last Admin: 04/13/17 16:30 Dose: 100 mg Fentanyl (Sublimaze Injection -) 50 mcg IVPUSH [id number] PRN PRN Reason: PAIN Stop: 04/14/17 18:06 Dextrose/Sodium Chloride (D5-Ns -) 1,000 mls @ 75 mls/hr IV ASDIR [facility] Last Admin: 04/13/17 11:55 Dose: 75 mls/hr Cefazolin Sodium (Ancef 1gm Ivpb (Pre-Docked)) 50 mls @ 100 mls/hr IVPB Q8H-IV [facility] Last Admin: 04/13/17 17:12 Dose: 100 mls/hr Metoprolol Tartrate (Lopressor -) 50 mg PO BID [facility] Last Admin: 04/13/17 09:32 Dose: 50 mg Mupirocin (Bactroban Ointment (For Decolonization) -) 1 applic NS BID [facility] Stop: 04/16/17 21:59 Last Admin: 04/13/17 09:30 Dose: 1 applic Ondansetron HCl (Zofran Injection) 4 mg IVPB Q6H PRN PRN Reason: NAUSEA Quinapril HCl (Accupril -) 5 mg PO DAILY [facility] Last Admin: 04/13/17 09:30 Dose: 5 mg - Objective Vital Signs: Vital Signs Temperature 98.9 F 04/13/17 16:00 Pulse Rate 81 04/13/17 16:00 Respiratory Rate 27 H 04/13/17 16:00 Blood Pressure 120/80 04/13/17 16:00 O2 Sat by Pulse Oximetry (%) 96 04/12/17 20:00 Constitutional: Yes: Well Nourished, No Distress, Calm Cardiovascular: Yes: Regular Rate and Rhythm Respiratory: Yes: Regular Gastrointestinal: Yes: Normal Bowel Sounds Musculoskeletal: Yes: Muscle Weakness Edema: No Peripheral Pulses WNL: Yes Neurological: Yes: Alert, Oriented Labs: CBC, BMP 04/13/17 05:20 04/13/17 05:20 INR, PTT INR 1.10 (0.82-1.09) 04/07/17 05:35 Problem List - Problems (1) NPH (normal pressure hydrocephalus) Assessment/Plan: -still weak, to be seen by Physical Therapy -s/p vp of marketing shunt -feels stronger Code(s): G91.2 - (IDIOPATHIC) NORMAL PRESSURE HYDROCEPHALUS (2) Unable to ambulate Assessment/Plan: -to be seen by Physical Therapy s/p shunt Code(s): R26.2 - DIFFICULTY IN WALKING, NOT ELSEWHERE CLASSIFIED (3) Leukocytosis Assessment/Plan: -mild -on cefazolin -monitor labs in AM Code(s): D72.829 - ELEVATED WHITE BLOOD CELL COUNT, UNSPECIFIED Assessment/Plan -pain management -physical therapy -GI/DVT prophylaxis -labs in AM -IVF -advance diet as tolerated
[2017-04-13] MEDS: ATORVASTATIN CA 10 MG TABLET (FP) PO SCH (22:15)
[2017-04-13] MEDS: CHLORHEXIDINE GLUCONATE 4% CLEANSER FOR DECOLONIZATION TP SCH (22:16)
[2017-04-14] MEDS: CEFAZOLIN (PRE-DOCKED) 50 ML IVPB SCH ×3 (02:00→17:57)
[2017-04-14 05:54] LABS: MCH 30.6 pg (25.7-33.7); MCHC 33.6 g/dl (32.0-35.9); MEAN CELL VOLUME 91.3 fl (80-96); MEAN PLT VOLUME 8.3 fl (7.5-11.1); PLATELET COUNT 187 K/MM3 (134-434); RDW 13.3 % (11.9-15.9); WHITE BLOOD COUNT 10.2 K/mm3 (4.0-10.0)
[2017-04-14] MEDS: DOCUSATE SODIUM 100 MG CAPSULE (FP) PO SCH ×3 (06:07→21:10)
[2017-04-14 06:18] LABS: ALBUMIN 2.8 g/dl (3.4-5.0); ANION GAP 7 (8-16); BILIRUBIN,DIRECT 0.3 mg/dL (0.0-0.2); CALCIUM 8.6 mg/dL (8.5-10.1); CO2 30 mmol/L (21-32); GLUCOSE,RANDOM 104 mg/dL (74-106); SGOT/AST 16 U/L (15-37); SGPT/ALT 10 U/L (12-78)
[2017-04-14 06:21] LABS: ALK PHOS 72 U/L (45-117); BILIRUBIN,TOTAL 1.4 mg/dL (0.2-1.0); CREATININE 1.3 mg/dL (0.7-1.3); TOT PROT 6.2 g/dl (6.4-8.2)
--- NOTE | 2017-04-14 06:30 | PN ---
Progress Note (short form) - Note Progress Note: NEUROSURGERY POD #3 In ICU Feels stronger Sat up at bedside with good balance yesteryday No H/A; No N/V PE: Tmax 99.4, npw 99 VSS HEENT- NC/AT; Neck- supple; Cor- RRR; Lungs- CTA; Abd- benign, + BS; Ext- no sign of DVT Incisions c/d/i- dressing changed A/A/Ox3 CN- decreased hearing B; Motor- 4+-5/5 without drift; Sensation- intact LT Head CT- stable appearance, cathether in satisfactory position WBC 10.2, trending down CSF (OR)- gram stain negative, culture negative x 24 hours Adv diet PT/OOB Pt prefers to be in local rehab Cont iv abx for WBC elevation Incentive spirometry Tx to 8 W
[2017-04-14] MEDS: METOPROLOL TARTRATE 50 MG TABLET (FP) PO SCH ×2 (10:20→21:10)
[2017-04-14] MEDS: HEPARIN NA (PORCINE) 5,000 UNITS/ML 1ML VIAL SQ SCH ×2 (10:25→21:10)
[2017-04-14] MEDS ORDERED: PT OWN MED DRAWER 7, Y5N ONE (10:25)
[2017-04-14] MEDS: CHOLECALCIFEROL (VITAMIN D3) 1,000 UNIT TABLET (FP) PO SCH (10:26)
[2017-04-14] MEDS: QUINAPRIL HCL 5 MG TABLET (FP) PO SCH (10:26)
[2017-04-14] MEDS: MUPIROCIN 2% TOPICAL OINTMENT FOR DECOLONIZATION NS SCH ×2 (10:32→21:14)
--- NOTE | 2017-04-14 10:50 | PN ---
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 Had spinal tap with no relief of symptoms. He does not feel any different than before the tap. S/P DISEASE CASE MANAGER RN shunt. feeling better and stronger, wants to get out of bed. - Current Medication List Current Medications: Active Medications Acetaminophen/Codeine Phosphate (Tylenol # 3 -) 1 tab PO Q4H PRN PRN Reason: PAIN Atorvastatin Calcium (Lipitor -) 10 mg PO [facility] Last Admin: 04/13/17 22:15 Dose: 10 mg Carbidopa/Levodopa (Sinemet *Cr* 50/200 -) 1 combo PO 0700,1200,1700 [facility] [place] Last Admin: 04/14/17 06:07 Dose: 1 combo Chlorhexidine Gluconate (Hibiclens For Decolonization -) 1 applic TP [facility] Last Admin: 04/13/17 22:16 Dose: 1 applic Cholecalciferol (Vitamin D3 -) 1,000 unit PO DAILY [facility] [place] Last Admin: 04/14/17 10:26 Dose: 1,000 unit Docusate Sodium (Colace -) 100 mg PO TID [facility] [place] Last Admin: 04/14/17 06:07 Dose: 100 mg Fentanyl (Sublimaze Injection -) 50 mcg IVPUSH [id number] PRN PRN Reason: PAIN Stop: 04/14/17 18:06 Heparin Sodium (Porcine) (Heparin -) 5,000 unit SQ BID [facility] Last Admin: 04/14/17 10:25 Dose: 5,000 unit Dextrose/Sodium Chloride (D5-Ns -) 1,000 mls @ 75 mls/hr IV ASDIR [facility] [place] Last Admin: 04/13/17 11:55 Dose: 75 mls/hr Cefazolin Sodium (Ancef 1gm Ivpb (Pre-Docked)) 50 mls @ 100 mls/hr IVPB Q8H-IV [facility] [place] Last Admin: 04/14/17 10:20 Dose: 100 mls/hr Metoprolol Tartrate (Lopressor -) 50 mg PO BID [facility] [place] Last Admin: 04/14/17 10:20 Dose: 50 mg Mupirocin (Bactroban Ointment (For Decolonization) -) 1 applic NS BID [facility] Stop: 04/16/17 21:59 Last Admin: 04/14/17 10:32 Dose: 1 applic Ondansetron HCl (Zofran Injection) 4 mg IVPB Q6H PRN PRN Reason: NAUSEA Quinapril HCl (Accupril -) 5 mg PO DAILY [facility] Last Admin: 04/14/17 10:26 Dose: 5 mg - Objective Vital Signs: Vital Signs Temperature 98.3 F 04/14/17 10:00 Pulse Rate 67 04/14/17 10:00 Respiratory Rate 22 04/14/17 10:00 Blood Pressure 111/61 04/14/17 10:00 O2 Sat by Pulse Oximetry (%) 94 L 04/13/17 20:00 Constitutional: Yes: Well Nourished, No Distress, Calm Cardiovascular: Yes: Regular Rate and Rhythm Respiratory: Yes: Regular Gastrointestinal: Yes: Normal Bowel Sounds Musculoskeletal: Yes: Muscle Weakness Extremities: Yes: WNL Edema: No Peripheral Pulses WNL: Yes Neurological: Yes: Alert, Oriented Psychiatric: Yes: Alert, Oriented Labs: CBC, BMP 04/14/17 05:10 04/14/17 05:10 INR, PTT INR 1.10 (0.82-1.09) 04/07/17 05:35 Problem List - Problems (1) NPH (normal pressure hydrocephalus) Assessment/Plan: -still weak, to be seen by Physical Therapy -s/p vp genetic shunt -feels stronger -advance diet to sodium controlled diet Code(s): G91.2 - (IDIOPATHIC) NORMAL PRESSURE HYDROCEPHALUS (2) Unable to ambulate Assessment/Plan: -to be seen by Physical Therapy s/p shunt -was in chair yesterday, tolerated well -OOB today as well. Code(s): R26.2 - DIFFICULTY IN WALKING, NOT ELSEWHERE CLASSIFIED (3) Leukocytosis Assessment/Plan: -mild -on cefazolin -monitor labs in AM Code(s): D72.829 - ELEVATED WHITE BLOOD CELL COUNT, UNSPECIFIED Assessment/Plan -pain management -physical therapy -GI/DVT prophylaxis -labs in AM -IVF -advance diet to sodium controlled -d/c BGM, Hga1c is 5.9% -may transfer to med surg
--- NOTE | 2017-04-14 11:04 | PN ---
Teaching Attending Note Name of Resident: Kermit Person ATTENDING PHYSICIAN STATEMENT I saw and evaluated the patient. I reviewed the resident's note and discussed the case with the resident. I agree with the resident's findings and plan as documented. SUBJECTIVE: Pt seen and examined in the ICU. Denies headache, nausea or vomiting. Sat on edge of bed with PT yesterday. OBJECTIVE: Last Vital Signs Temp Pulse Resp BP Pulse Ox 98.3 F 67 22 111/61 94 L 04/14/17 10:00 04/14/17 10:00 04/14/17 10:00 04/14/17 10:00 04/13/17 20:00 Intake & Output 04/11/17 04/12/17 04/13/17 04/14/17 23:59 23:59 23:59 23:59 Intake Total 1690 2720 3281 1500 Output Total 1400 3100 2800 100 Balance 290 -333 944 2680 Weight 205 lb 9.6 oz 206 lb 9.6 oz 205 lb 12.8 oz 207 lb 6.4 oz Gen: NAD at rest Heart: RRR Lung: decreased breath sounds at the bases Abd: softly distended, nontender Ext: no edema CBC, BMP 04/14/17 05:10 04/14/17 05:10 Active Medications Acetaminophen/Codeine Phosphate (Tylenol # 3 -) 1 tab PO Q4H PRN PRN Reason: PAIN Atorvastatin Calcium (Lipitor -) 10 mg PO HS [facility] Last Admin: 04/13/17 22:15 Dose: 10 mg Carbidopa/Levodopa (Sinemet *Cr* 50/200 -) 1 combo PO 0700,1200,1700 [facility] Last Admin: 04/14/17 06:07 Dose: 1 combo Chlorhexidine Gluconate (Hibiclens For Decolonization -) 1 applic TP HS [facility] Last Admin: 04/13/17 22:16 Dose: 1 applic Cholecalciferol (Vitamin D3 -) 1,000 unit PO DAILY [facility] Last Admin: 04/14/17 10:26 Dose: 1,000 unit Docusate Sodium (Colace -) 100 mg PO TID [facility] Last Admin: 04/14/17 06:07 Dose: 100 mg Fentanyl (Sublimaze Injection -) 50 mcg IVPUSH [id number] PRN PRN Reason: PAIN Stop: 04/14/17 18:06 Heparin Sodium (Porcine) (Heparin -) 5,000 unit SQ BID [facility] Last Admin: 04/14/17 10:25 Dose: 5,000 unit Dextrose/Sodium Chloride (D5-Ns -) 1,000 mls @ 75 mls/hr IV ASDIR [facility] Last Admin: 04/13/17 11:55 Dose: 75 mls/hr Cefazolin Sodium (Ancef 1gm Ivpb (Pre-Docked)) 50 mls @ 100 mls/hr IVPB Q8H-IV [facility] Last Admin: 04/14/17 10:20 Dose: 100 mls/hr Metoprolol Tartrate (Lopressor -) 50 mg PO BID [facility] Last Admin: 04/14/17 10:20 Dose: 50 mg Mupirocin (Bactroban Ointment (For Decolonization) -) 1 applic NS BID [facility] Stop: 04/16/17 21:59 Last Admin: 04/14/17 10:32 Dose: 1 applic Ondansetron HCl (Zofran Injection) 4 mg IVPB Q6H PRN PRN Reason: NAUSEA Quinapril HCl (Accupril -) 5 mg PO DAILY [facility] Last Admin: 04/14/17 10:26 Dose: 5 mg ASSESSMENT AND PLAN: Normal Pressure Hydrocephalus s/p PULLMAN CAR REPAIRER shunt HTN Hyperlipidemia Parkinsons Disease - neuro checks - pain control - IVF - monitor lytes - PO per surgery - rehab/PT - OOB to chair if possible - DVT prophylaxis - can monitor on surgical floor
--- NOTE | 2017-04-14 13:36 | PN ---
Physical Exam: SUBJECTIVE: Patient seen and examined. He states that he feels better and that his headache is gone. OBJECTIVE: Vital Signs Temperature 98.3 F 04/14/17 10:00 Pulse Rate 65 04/14/17 12:49 Respiratory Rate 22 04/14/17 12:00 Blood Pressure 101/59 04/14/17 12:00 O2 Sat by Pulse Oximetry (%) 96 04/14/17 12:49 GENERAL: The patient is awake, alert, and fully oriented, in no acute distress. HEAD: Normal with no signs of trauma. Bandage on occiput at surgery site EYES: extraocular movements intact, sclera anicteric, conjunctiva clear. No ptosis. NECK: Trachea midline, full range of motion, supple. LUNGS: Breath sounds equal, clear to auscultation bilaterally, no wheezes, no crackles, no accessory muscle use. HEART: Regular rate and rhythm, S1, S2 without murmur, rub or gallop. ABDOMEN: Soft, nontender, distended, normoactive bowel sounds, no guarding, no rebound. Bandage at site of surgical incision. EXTREMITIES: 2+ pulses, warm, well-perfused, no edema. NEUROLOGICAL: Cranial nerves II through X grossly intact. Normal speech, gait not observed. PSYCH: Normal mood, normal affect. SKIN: Warm, dry, normal turgor, no rashes or lesions noted Laboratory Results - last 24 hr 04/13/17 04/14/17 04/14/17 15:44 05:10 05:10 WBC 10.2 H RBC 4.15 Hgb 12.7 Hct 37.9 MCV 91.3 MCH 30.6 MCHC 33.6 RDW 13.3 Plt Count 187 MPV 8.3 Sodium 141 Potassium 4.3 Chloride 104 Carbon Dioxide 30 Anion Gap 7 L BUN 14 Creatinine 1.3 Creat Clearance w eGFR 52.59 POC Glucometer 105.19745 Random Glucose 104 Calcium 8.6 Total Bilirubin 1.4 H Direct Bilirubin 0.3 H AST 16 ALT 10 L Alkaline Phosphatase 72 Total Protein 6.2 L Albumin 2.8 L 04/14/17 05:17 WBC RBC Hgb Hct MCV MCH MCHC RDW Plt Count MPV Sodium Potassium Chloride Carbon Dioxide Anion Gap BUN Creatinine Creat Clearance w eGFR POC Glucometer 127.75762 Random Glucose Calcium Total Bilirubin Direct Bilirubin AST ALT Alkaline Phosphatase Total Protein Albumin Active Medications Generic Name Dose Route Start Last Admin Trade Name Freq PRN Reason Stop Dose Admin Acetaminophen/Codeine Phosphate 1 tab 04/11/17 18:28 Tylenol # 3 - PO Q4H PRN PAIN Atorvastatin Calcium 10 mg 04/11/17 22:00 04/13/17 22:15 Lipitor - PO 10 mg HS [facility] Administration Carbidopa/Levodopa 1 combo 04/12/17 07:30 04/14/17 12:33 Sinemet *Cr* 50/200 - PO 1 combo 0700,1200,1700 [facility] Administration Chlorhexidine Gluconate 1 applic 04/11/17 22:00 04/13/17 22:16 Hibiclens For Decolonization - TP 1 applic HS [facility] Administration Cholecalciferol 1,000 unit 04/12/17 10:00 04/14/17 10:26 Vitamin D3 - PO 1,000 unit DAILY [facility] Administration Docusate Sodium 100 mg 04/11/17 22:00 04/14/17 06:07 Colace - PO 100 mg TID [facility] Administration Fentanyl 50 mcg 04/11/17 18:05 Sublimaze Injection - IVPUSH 04/14/17 18:06 [id number] PRN PAIN Heparin Sodium (Porcine) 5,000 unit 04/14/17 10:00 04/14/17 10:25 Heparin - SQ 5,000 unit BID [facility] Administration Dextrose/Sodium Chloride 1,000 mls @ 75 mls/hr 04/12/17 11:15 04/13/17 11:55 D5-Ns - IV 75 mls/hr ASDIR [facility] Administration Cefazolin Sodium 50 mls @ 100 mls/hr 04/13/17 10:00 04/14/17 10:20 Ancef 1gm Ivpb (Pre-Docked) IVPB 100 mls/hr Q8H-IV [facility] Administration Metoprolol Tartrate 50 mg 04/11/17 22:00 04/14/17 10:20 Lopressor - PO 50 mg BID [facility] Administration Mupirocin 1 applic 04/11/17 22:00 04/14/17 10:32 Bactroban Ointment (For Decolonization) - NS 04/16/17 21:59 1 applic BID [facility] Administration Ondansetron HCl 4 mg 04/11/17 18:28 Zofran Injection IVPB Q6H PRN NAUSEA Quinapril HCl 5 mg 04/12/17 10:00 04/14/17 10:26 Accupril - PO 5 mg DAILY [facility] Administration ASSESSMENT/PLAN: 86 yo m w/ PMH HTN, HLD, CAD diagnosed with normal pressure hydrocephalus. Patient is s/p insertion of LOFT RIGGER shunt on 04/11. Neuro -s/p LOFT RIGGER shunt for NPH -Patient is alert and oriented x3 -headache resolved today. c/w tylenol #3 PRN pain -zofran 4mg IV PRN -monitor mental status -head of bed elevated to 30 degrees as per neurosurgery -c/w physical therapy Hematology -whites trending down -c/w Ancef 1g IVPB Cardio -PMH HTN, HLD, CAD -BP and HR WNL -c/w metoprolol 50mg and quinapril 5mg GI -patient continues to have abdominal distension 2/2 to CSF acites vs post operative ileus -pt has not had BM yet; adding miralax daily -c/w ducosate 100mg -Patient' tbili trending back down FEN -no indication for electrolytes at this time -no electrolyte abnormalities -sodium controlled diet Prophylaxis -heparin 5kU SQ BID for DVT prophylaxis Dispo -patient is stable for transfer to floor; neurosurgery agrees Problem List - Problems (1) Encounter for postoperative care Code(s): Z48.89 - ENCOUNTER FOR OTHER SPECIFIED SURGICAL AFTERCARE (2) HTN (hypertension) Code(s): I10 - ESSENTIAL (PRIMARY) HYPERTENSION Qualifiers: Hypertension type: essential hypertension Qualified Code(s): I10 - Essential (primary) hypertension (3) NPH (normal pressure hydrocephalus) Code(s): G91.2 - (IDIOPATHIC) NORMAL PRESSURE HYDROCEPHALUS (4) Abdominal distension Code(s): R14.0 - ABDOMINAL DISTENSION (GASEOUS) (5) Leukocytosis Code(s): D72.829 - ELEVATED WHITE BLOOD CELL COUNT, UNSPECIFIED (6) Unable to ambulate Code(s): R26.2 - DIFFICULTY IN WALKING, NOT ELSEWHERE CLASSIFIED Visit type - Emergency Visit Emergency Visit: Yes ED Registration Date: 04/01/17 Care time: The patient presented to the Emergency Department on the above date and was hospitalized for further evaluation of their emergent condition. - New Patient This patient is new to me today: No - Critical Care Critical Care patient: Yes Total Critical Care Time (in minutes): 35 Critical Care Statement: The care of this patient involved high complexity decision making to prevent further life threatening deterioration of the patient 's condition and/or to evalute & treat vital organ system(s) failure or risk of failure.
[2017-04-14] MEDS: DEXTROSE 5%-NORMAL SALINE 1,000 ML IV SCH (14:00)
[2017-04-14] MEDS: CHLORHEXIDINE GLUCONATE 4% CLEANSER FOR DECOLONIZATION TP SCH (21:10)
[2017-04-14] MEDS: ATORVASTATIN CA 10 MG TABLET (FP) PO SCH (21:14)
[2017-04-15] MEDS: CEFAZOLIN (PRE-DOCKED) 50 ML IVPB SCH ×2 (02:45→10:37)
[2017-04-15] MEDS: DOCUSATE SODIUM 100 MG CAPSULE (FP) PO SCH ×3 (06:10→21:31)
[2017-04-15] MEDS ORDERED: PT OWN MED DRAWER 7, Y5N ONE ×3 (09:51→17:18)
[2017-04-15] MEDS ORDERED: POLYETHYLENE GLYCOL 3350 119 GM BTL PO SCH (10:00)
[2017-04-15] MEDS: MUPIROCIN 2% TOPICAL OINTMENT FOR DECOLONIZATION NS SCH (10:00)
[2017-04-15] MEDS: CHOLECALCIFEROL (VITAMIN D3) 1,000 UNIT TABLET (FP) PO SCH (10:37)
[2017-04-15] MEDS: HEPARIN NA (PORCINE) 5,000 UNITS/ML 1ML VIAL SQ SCH ×2 (10:37→21:33)
[2017-04-15] MEDS: METOPROLOL TARTRATE 50 MG TABLET (FP) PO SCH ×2 (10:37→21:32)
[2017-04-15] MEDS: QUINAPRIL HCL 5 MG TABLET (FP) PO SCH (10:37)
--- NOTE | 2017-04-15 10:51 | PN ---
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 Had spinal tap with no relief of symptoms. He does not feel any different than before the tap. S/P DIVER'S TENDER shunt. feeling better and stronger, wants to get out of bed. - Current Medication List Current Medications: Active Medications Acetaminophen/Codeine Phosphate (Tylenol # 3 -) 1 tab PO Q4H PRN PRN Reason: PAIN Atorvastatin Calcium (Lipitor -) 10 mg PO [facility] Last Admin: 04/14/17 21:14 Dose: 10 mg Carbidopa/Levodopa (Sinemet *Cr* 50/200 -) 1 combo PO 0700,1200,1700 [facility] Last Admin: 04/15/17 07:07 Dose: 1 combo Chlorhexidine Gluconate (Hibiclens For Decolonization -) 1 applic TP [facility] Last Admin: 04/14/17 21:10 Dose: 1 applic Cholecalciferol (Vitamin D3 -) 1,000 unit PO DAILY [facility] Last Admin: 04/15/17 10:37 Dose: 1,000 unit Docusate Sodium (Colace -) 100 mg PO TID [facility] Last Admin: 04/15/17 06:10 Dose: 100 mg Heparin Sodium (Porcine) (Heparin -) 5,000 unit SQ BID [facility] Last Admin: 04/15/17 10:37 Dose: 5,000 unit Cefazolin Sodium (Ancef 1gm Ivpb (Pre-Docked)) 50 mls @ 100 mls/hr IVPB Q8H-IV [facility] Last Admin: 04/15/17 10:37 Dose: 100 mls/hr Metoprolol Tartrate (Lopressor -) 50 mg PO BID [facility] Last Admin: 04/15/17 10:37 Dose: 50 mg Mupirocin (Bactroban Ointment (For Decolonization) -) 1 applic NS BID [facility] Stop: 04/16/17 21:59 Last Admin: 04/14/17 21:14 Dose: 1 applic Ondansetron HCl (Zofran Injection) 4 mg IVPB Q6H PRN PRN Reason: NAUSEA Polyethylene Glycol (Miralax (For Daily Use) -) 17 gm PO DAILY [facility] Quinapril HCl (Accupril -) 5 mg PO DAILY [facility] Last Admin: 04/15/17 10:37 Dose: 5 mg - Objective Vital Signs: Vital Signs Temperature 98.4 F 04/15/17 06:00 Pulse Rate 75 04/15/17 08:00 Respiratory Rate 17 04/15/17 08:00 Blood Pressure 126/56 04/15/17 08:00 O2 Sat by Pulse Oximetry (%) 98 04/14/17 21:00 Constitutional: Yes: Well Nourished, No Distress, Calm Cardiovascular: Yes: Regular Rate and Rhythm Respiratory: Yes: Regular Gastrointestinal: Yes: Normal Bowel Sounds Musculoskeletal: Yes: Muscle Weakness Extremities: Yes: WNL Edema: No Peripheral Pulses WNL: Yes Neurological: Yes: Alert, Oriented Psychiatric: Yes: Alert, Oriented Labs: CBC, BMP 04/14/17 05:10 04/14/17 05:10 INR, PTT INR 1.10 (0.82-1.09) 04/07/17 05:35 Problem List - Problems (1) NPH (normal pressure hydrocephalus) Assessment/Plan: -still weak, to be seen by Physical Therapy -s/p vp marketing services and skin shunt -feels stronger -advance diet to sodium controlled diet Code(s): G91.2 - (IDIOPATHIC) NORMAL PRESSURE HYDROCEPHALUS (2) Unable to ambulate Assessment/Plan: -to be seen by Physical Therapy s/p shunt -was in chair yesterday, tolerated well -OOB today as well. Code(s): R26.2 - DIFFICULTY IN WALKING, NOT ELSEWHERE CLASSIFIED (3) Leukocytosis Assessment/Plan: -mild -on cefazolin -monitor labs in AM Code(s): D72.829 - ELEVATED WHITE BLOOD CELL COUNT, UNSPECIFIED Assessment/Plan -pain management -physical therapy -GI/DVT prophylaxis -labs in AM -IVF -advance diet to sodium controlled -d/c BGM, Hga1c is 5.9% -miralax and docusate for BM post op -may transfer to med surg
--- NOTE | 2017-04-15 11:14 | PN ---
Progress Note (short form) - Note Progress Note: NEUROSURGERY POD #4 on 8W Feels stronger Able to walk down the crockett with walker Tolerating diet No H/A; No N/V PE: Tmax 98.4, 98 now, VSS HEENT- NC/AT; Neck- supple; Cor- RRR; Lungs- CTA; Abd- benign, + BS; Ext- no sign of DVT Incisions c/d/i- dressing changed A/A/Ox3 CN- decreased hearing B; Motor- 4+-5/5 without drift; Sensation- intact LT Head CT- stable appearance, cathether in satisfactory position CSF (OR)- gram stain negative, culture negative Adv diet PT/OOB/gait/safety Pt prefers to be in local rehab D/C abx given afebrile and CSF culture negative Incentive spirometry
--- NOTE | 2017-04-15 11:44 | PN ---
Teaching Attending Note Name of Resident: Kermit Person ATTENDING PHYSICIAN STATEMENT I saw and evaluated the patient. I reviewed the resident's note and discussed the case with the resident. I agree with the resident's findings and plan as documented. SUBJECTIVE: Patient seen and examined in the ICU. Still with some difficulty with standing , feels weak. Denies headache, nausea or vomiting. Feels some fullness and the sensation of "fluid" in his abdomen. OBJECTIVE: Intake & Output 04/12/17 04/13/17 04/14/17 04/15/17 23:59 23:59 23:59 23:59 Intake Total 2720 3281 2950 50 Output Total 3100 2800 920 200 Balance -107 167 5543 -150 Weight 206 lb 9.6 oz 205 lb 12.8 oz 207 lb 6.4 oz 210 lb 1.608 oz Last Vital Signs Temp Pulse Resp BP Pulse Ox 98.4 F 75 17 126/56 98 04/15/17 06:00 04/15/17 08:00 04/15/17 08:00 04/15/17 08:00 04/14/17 21:00 Active Medications Acetaminophen/Codeine Phosphate (Tylenol # 3 -) 1 tab PO Q4H PRN PRN Reason: PAIN Atorvastatin Calcium (Lipitor -) 10 mg PO HS [facility] Last Admin: 04/14/17 21:14 Dose: 10 mg Carbidopa/Levodopa (Sinemet *Cr* 50/200 -) 1 combo PO 0700,1200,1700 [facility] Last Admin: 04/15/17 07:07 Dose: 1 combo Chlorhexidine Gluconate (Hibiclens For Decolonization -) 1 applic TP HS [facility] Last Admin: 04/14/17 21:10 Dose: 1 applic Cholecalciferol (Vitamin D3 -) 1,000 unit PO DAILY [facility] Last Admin: 04/15/17 10:37 Dose: 1,000 unit Docusate Sodium (Colace -) 100 mg PO TID [facility] Last Admin: 04/15/17 06:10 Dose: 100 mg Heparin Sodium (Porcine) (Heparin -) 5,000 unit SQ BID [facility] Last Admin: 04/15/17 10:37 Dose: 5,000 unit Cefazolin Sodium (Ancef 1gm Ivpb (Pre-Docked)) 50 mls @ 100 mls/hr IVPB Q8H-IV [facility] Last Admin: 04/15/17 10:37 Dose: 100 mls/hr Metoprolol Tartrate (Lopressor -) 50 mg PO BID [facility] Last Admin: 04/15/17 10:37 Dose: 50 mg Mupirocin (Bactroban Ointment (For Decolonization) -) 1 applic NS BID [facility] Stop: 04/16/17 21:59 Last Admin: 04/14/17 21:14 Dose: 1 applic Ondansetron HCl (Zofran Injection) 4 mg IVPB Q6H PRN PRN Reason: NAUSEA Polyethylene Glycol (Miralax (For Daily Use) -) 17 gm PO DAILY [facility] Quinapril HCl (Accupril -) 5 mg PO DAILY [facility] Last Admin: 04/15/17 10:37 Dose: 5 mg Gen: NAD at rest Heart: RRR Lung: decreased breath sounds at the bases Abd: softly distended, nontender, (+) BS Ext: no edema ASSESSMENT AND PLAN: Normal Pressure Hydrocephalus 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
--- NOTE | 2017-04-15 12:02 | PN ---
Physical Exam: SUBJECTIVE: Patient seen and examined. His headache has not returned. Patient is eager to walk. He is concerned with his abdominal distension, stating that it feels as if "there is water in there." He endorses passing gas. OBJECTIVE: Vital Signs Temperature 98.4 F 04/15/17 06:00 Pulse Rate 75 04/15/17 08:00 Respiratory Rate 17 04/15/17 08:00 Blood Pressure 126/56 04/15/17 08:00 O2 Sat by Pulse Oximetry (%) 98 04/14/17 21:00 GENERAL: The patient is awake, alert, and fully oriented, in no acute distress. HEAD: Normal with no signs of trauma. Bandage on occiput at site of surgery EYES: extraocular movements intact, sclera anicteric, conjunctiva clear. No ptosis. NECK: Trachea midline, full range of motion, supple. LUNGS: Breath sounds equal, clear to auscultation bilaterally, no wheezes, no crackles, no accessory muscle use. HEART: Regular rate and rhythm, S1, S2 without murmur, rub or gallop. ABDOMEN: Soft, nontender, distended, hyperactive bowel sounds, no guarding, no rebound. Bandage at surgical site. EXTREMITIES: 2+ pulses, warm, well-perfused, no edema. NEUROLOGICAL: Cranial nerves II through X grossly intact. Normal speech, gait not observed. PSYCH: Normal mood, normal affect. SKIN: Warm, dry, normal turgor, no rashes or lesions noted Active Medications Generic Name Dose Route Start Last Admin Trade Name Freq PRN Reason Stop Dose Admin Acetaminophen/Codeine Phosphate 1 tab 04/11/17 18:28 Tylenol # 3 - PO Q4H PRN PAIN Atorvastatin Calcium 10 mg 04/11/17 22:00 04/14/17 21:14 Lipitor - PO 10 mg HS [facility] Administration Carbidopa/Levodopa 1 combo 04/12/17 07:30 04/15/17 07:07 Sinemet *Cr* 50/200 - PO 1 combo 0700,1200,1700 [facility] Administration Chlorhexidine Gluconate 1 applic 04/11/17 22:00 04/14/17 21:10 Hibiclens For Decolonization - TP 1 applic HS [facility] Administration Cholecalciferol 1,000 unit 04/12/17 10:00 04/15/17 10:37 Vitamin D3 - PO 1,000 unit DAILY [facility] Administration Docusate Sodium 100 mg 04/11/17 22:00 04/15/17 06:10 Colace - PO 100 mg TID [facility] Administration Heparin Sodium (Porcine) 5,000 unit 04/14/17 10:00 04/15/17 10:37 Heparin - SQ 5,000 unit BID [facility] Administration Cefazolin Sodium 50 mls @ 100 mls/hr 04/13/17 10:00 04/15/17 10:37 Ancef 1gm Ivpb (Pre-Docked) IVPB 100 mls/hr Q8H-IV [facility] Administration Metoprolol Tartrate 50 mg 04/11/17 22:00 04/15/17 10:37 Lopressor - PO 50 mg BID [facility] Administration Mupirocin 1 applic 04/11/17 22:00 04/14/17 21:14 Bactroban Ointment (For Decolonization) - NS 04/16/17 21:59 1 applic BID [facility] Administration Ondansetron HCl 4 mg 04/11/17 18:28 Zofran Injection IVPB Q6H PRN NAUSEA Polyethylene Glycol 17 gm 04/15/17 10:00 Miralax (For Daily Use) - PO DAILY [facility] Quinapril HCl 5 mg 04/12/17 10:00 04/15/17 10:37 Accupril - PO 5 mg DAILY [facility] Administration ASSESSMENT/PLAN: 86 yo m w/ PMH HTN, HLD, CAD diagnosed with normal pressure hydrocephalus. Patient is s/p insertion of ANIMAL HUSBANDMAN shunt on 04/11. Neuro -s/p ANIMAL HUSBANDMAN shunt for NPH -Patient is alert and oriented x3 -headache remains resolved today. c/w tylenol #3 PRN pain -zofran 4mg IV PRN -monitor mental status -head of bed elevated to 30 degrees as per neurosurgery -c/w physical therapy Cardio -PMH HTN, HLD, CAD -BP and HR WNL -c/w metoprolol 50mg PO and quinapril 5mg PO GI -patient continues to have abdominal distension 2/2 to CSF acites vs post operative ileus -pt had a bm overnight as per nurse -c/w ducosate 100mg and miralax daily FEN -no indication for fluids at this time -Monitor lytes -sodium controlled diet Prophylaxis -heparin 5kU SQ BID for DVT prophylaxis Dispo -patient is transferred to floor, awaiting bed. Problem List - Problems (1) Encounter for postoperative care Code(s): Z48.89 - ENCOUNTER FOR OTHER SPECIFIED SURGICAL AFTERCARE (2) HTN (hypertension) Code(s): I10 - ESSENTIAL (PRIMARY) HYPERTENSION Qualifiers: Hypertension type: essential hypertension Qualified Code(s): I10 - Essential (primary) hypertension (3) NPH (normal pressure hydrocephalus) Code(s): G91.2 - (IDIOPATHIC) NORMAL PRESSURE HYDROCEPHALUS (4) Abdominal distension Code(s): R14.0 - ABDOMINAL DISTENSION (GASEOUS) (5) Leukocytosis Code(s): D72.829 - ELEVATED WHITE BLOOD CELL COUNT, UNSPECIFIED (6) Unable to ambulate Code(s): R26.2 - DIFFICULTY IN WALKING, NOT ELSEWHERE CLASSIFIED Visit type - Emergency Visit Emergency Visit: Yes ED Registration Date: 04/01/17 Care time: The patient presented to the Emergency Department on the above date and was hospitalized for further evaluation of their emergent condition. - New Patient This patient is new to me today: No - Critical Care Critical Care patient: Yes Total Critical Care Time (in minutes): 35 Critical Care Statement: The care of this patient involved high complexity decision making to prevent further life threatening deterioration of the patient 's condition and/or to evalute & treat vital organ system(s) failure or risk of failure.
[2017-04-15] MEDS ORDERED: ACETAMINOPHEN WITH CODEINE 300MG/30MG TABLET PO PRN (14:36)
[2017-04-15] MEDS ORDERED: ONDANSETRON 4 MG/2 ML VIAL IVPB PRN (14:36)
[2017-04-15] MEDS ORDERED: CEFAZOLIN (PRE-DOCKED) 50 ML IVPB SCH (18:00)
--- NOTE | 2017-04-15 19:13 | PN ---
Progress Note (short form) - Note Progress Note: NEUROLOGY F/U: Walking today in the cro[place] with PT and walker. Able to sit independently with decreased retropulsion. No BM x 3 days. On metamucil and Colace. EXAM: No tremor. Decreased cogwheeling (still R>L). Non-focal exam Stands with assistance. Able to walk around bed with assist of 1 IMP: Ataxia with retropulsion Moderately improved s/p STAR ROUTE MAIL DRIVER shunt and on Sinemet CR 50/200 TID @ 7, 12, and 5 SUGGEST: Add MOM 30 cc qHS vs constipation Continue Sinemet CR Adjust shunt to increase flow slightly Aggressive PT and Rehab placement. Thank you very much, Mal Voss MD
--- NOTE | 2017-04-15 19:13 | PN ---
Progress Note (short form) - Note Progress Note: ENT pt presented with imbalance, not vertigo or spinning pt had a full ENT evaluation by Dr. Meng on 04-02-17 pt had hydrocephalus and is s/p CAN REFORMING MACHINE OPERATOR shunt definite clinical improvement still feels unsteady but ambulating more denies ear pain, hearing loss or tinnitus PE NAD no spontaneous nystagmus awake alert and oriented Impression imbalance secondary to hydrocephalus improving after CAN REFORMING MACHINE OPERATOR shunt no inner ear etiology suspected Recommend: continue to increase activity as tolerated physical therapy Higinio Hunter MD FACS
[2017-04-15] MEDS ORDERED: MAGNESIUM HYDROX 2400MG/30ML ORAL SUSPENSION 30 ML CUP PO STA (19:16)
[2017-04-15] MEDS ORDERED: SODIUM PHOSPHATE/NA BIPHOS 133 ML ENEMA PR ONE (20:16)
[2017-04-15] MEDS ORDERED: MUPIROCIN 2% TOPICAL OINTMENT FOR DECOLONIZATION NS SCH (22:00)
[2017-04-15] MEDS ORDERED: CHLORHEXIDINE GLUCONATE 4% CLEANSER FOR DECOLONIZATION TP SCH (22:00)
[2017-04-15] MEDS ORDERED: ATORVASTATIN CA 10 MG TABLET (FP) PO SCH (22:00)
[2017-04-16] MEDS: DOCUSATE SODIUM 100 MG CAPSULE (FP) PO SCH ×2 (06:32→13:33)
[2017-04-16 07:23] LABS: MCH 32.2 pg (25.7-33.7); MCHC 35.7 g/dl (32.0-35.9); MEAN CELL VOLUME 90.1 fl (80-96); MEAN PLT VOLUME 7.9 fl (7.5-11.1); PLATELET COUNT 182 K/MM3 (134-434); RDW 13.1 % (11.9-15.9); WHITE BLOOD COUNT 8.6 K/mm3 (4.0-10.0)
[2017-04-16 08:05] LABS: ALK PHOS 79 U/L (45-117); ANION GAP 7 (8-16); BILIRUBIN,TOTAL 1.1 mg/dL (0.2-1.0); CALCIUM 9.5 mg/dL (8.5-10.1); CO2 27 mmol/L (21-32); CREATININE 1.2 mg/dL (0.7-1.3); GLUCOSE,RANDOM 95 mg/dL (74-106); SGOT/AST 15 U/L (15-37); SGPT/ALT 12 U/L (12-78); TOT PROT 6.6 g/dl (6.4-8.2)
--- NOTE | 2017-04-16 09:31 | PN ---
Progress Note (short form) - Note Progress Note: NEUROSURGERY POD #5 on floor care Tolerating diet Able to walk down the crock[place] with walker No H/A; No N/V PE: Tmax 99.5, VSS HEENT- NC/AT; Neck- supple; Cor- RRR; Lungs- CTA; Abd- benign, + BS; Ext- no sign of DVT Incisions c/d/i A/A/Ox3 CN- decreased hearing B; Motor- 4+-5/5 without drift; Sensation- intact LT Improving gait post-op Walking down the crock[place] with walker CSF (OR)- gram stain negative, culture negative Adv diet PT/OOB/gait/safety Incentive spirometry SNF for rehab locally as preferred by pt
[2017-04-16] MEDS ORDERED: CHOLECALCIFEROL (VITAMIN D3) 1,000 UNIT TABLET (FP) PO SCH (10:00)
[2017-04-16] MEDS ORDERED: POLYETHYLENE GLYCOL 3350 119 GM BTL PO SCH (10:00)
[2017-04-16] MEDS ORDERED: QUINAPRIL HCL 5 MG TABLET (FP) PO SCH (10:00)
[2017-04-16] MEDS ORDERED: PT OWN MED DRAWER 7, Y5N ONE (10:34)
[2017-04-16] MEDS: HEPARIN NA (PORCINE) 5,000 UNITS/ML 1ML VIAL SQ SCH (10:41)
[2017-04-16] MEDS: METOPROLOL TARTRATE 50 MG TABLET (FP) PO SCH (10:43)
[2017-04-16 13:46] VITALS: BP 102/65; PULSE 91; TEMP 99.3
--- NOTE | 2017-04-16 14:18 | DS ---
Physical Examination Vital Signs: Vital Signs Temperature 99.3 F 04/16/17 09:00 Pulse Rate 91 H 04/16/17 09:00 Respiratory Rate 18 04/16/17 09:00 Blood Pressure 102/65 04/16/17 09:00 O2 Sat by Pulse Oximetry (%) 96 04/15/17 21:00 Constitutional: Yes: Well Nourished, No Distress, Calm Cardiovascular: Yes: Regular Rate and Rhythm Respiratory: Yes: Regular Gastrointestinal: Yes: Normal Bowel Sounds Musculoskeletal: Yes: Muscle Weakness Extremities: Yes: WNL Edema: No Peripheral Pulses WNL: Yes Neurological: Yes: Alert, Oriented Psychiatric: Yes: Alert, Oriented Labs: CBC, BMP 04/16/17 06:00 04/16/17 06:00 Discharge Summary Reason For Visit: UNABLE TO WALK/DEHYDRATION Current Active Problems Abdominal distension (Acute) CAD (coronary artery disease), [place] coronary artery (Acute) Compression fracture (Acute) Dehydration (Acute) Encounter for postoperative care (Acute) Fall (Acute) HTN (hypertension) (Acute) Leukocytosis (Acute) NPH (normal pressure hydrocephalus) (Acute) Preop cardiovascular exam (Acute) Tachycardia (Acute) Unable to ambulate (Acute) Weakness (Acute) Hospital Course: The patient is an 86 year old male, with a significant past medical history of hypertension, hyperlipidemia, enlarged prostate, and heart disease, who presents to the emergency department s/p unwitnessed mechanical fall earlier today. The patient reports he was sitting on the toilet urinating, but after getting up and beginning to walk, he felt alittle dizzy and felt like his legs gave out from under him and he fell and hit his right shoulder on the tub. The patient denies any head trauma or LOC. He reports associated back and shoulder pain. When he got up he reports he felt dizzy. He denies any chest pain, shortness of breath, diaphoresis, palpitations, numbness, or paresthesias. He denies any dysuria, hematuria, frequency, or urgency. He denies any abdominal pain, nausea, vomiting, diarrhea, or constipation. He denies fever, chills, cough, or headache. He denies any recent travel or sick contacts. On 81 mg aspirin daily. Pt endorsed feeling weak for the past few months, so much so that when he walks in his house he needs to use a walker. During the course of his stay he had [employer] shunt placement, after which he felt better and stronger. He has been tolerating PO intake well. He has been seen by Physical therapy. Condition: Stable - Instructions Diet, Activity, Other Instructions: follow up with neurology and neurosurgery outpatient within 1 week. Referrals: Abel Bocanegra MD [Primary Care Provider] - Juan Gold MD [Staff Physician] - Mal Voss MD [Staff Physician] - Disposition: [facility] F[facility] - Home Medications Comprehensive Discharge Medication List: Ambulatory Orders Quinapril HCl [Accupril -] 5 mg PO DAILY 04/01/17 Acetaminophen W/ Codeine #3 [Tylenol # 3 -] 1 tab PO Q4H PRN #0 tablet MDD 6 Aspirin [ASA -] 81 mg PO DAILY 30 Days 04/16/17 Atorvastatin Ca [Lipitor] 10 mg PO HS tablet 04/16/17 Carbidopa/Levodopa *Cr* 50/200 [Sinemet *Cr* 50/200 -] 1 combo PO 0700,1200, 1700 30 Days 04/16/17 Chlorhexidine Gluconate [Hibiclens For Decolonization -] 1 applic TP HS bottle 04/16/17 Cholecalciferol (Vitamin D3) [Vitamin D3 -] 1,000 unit PO DAILY tab 04/16/17 Docusate Sodium [Colace -] 100 mg PO TID cap 04/16/17 Metoprolol Tartrate [Lopressor -] 50 mg PO BID tablet 04/16/17 Mupirocin Ointment [Bactroban Ointment (For Decolonization) -] 1 applic NS BID applic 04/16/17 Polyethylene Glycol 3350 [Miralax 119 gm Btl -] 17 gm PO DAILY bottle 04/16/17
== END 2017-04-16 15:05 | DRG 33 ==
LOC: JER 12:33 → SUPCPDRO 12:33 → JERBED 16:45 → J6S 04-02 01:27 → JICU 04-11 19:09 → J8W 04-15 14:27
PROVIDERS: ADMIT Family Medicine; ATTEND Family Medicine
PROC: 09C4XZZ Extirpation of Matter from Left External Auditory Canal, External Approach (ICD-10-PCS; 2017-04-02)
PROC: 09C3XZZ Extirpation of Matter from Right External Auditory Canal, External Approach (ICD-10-PCS; 2017-04-02)
PROC: 009U3ZX Drainage of Spinal Canal, Percutaneous Approach, Diagnostic (ICD-10-PCS; 2017-04-08)
PROC: B01BYZZ Fluoroscopy of Spinal Cord using Other Contrast (ICD-10-PCS; 2017-04-08)
PROC: 001 Central Nervous System and Cranial Nerves, Bypass (ICD-10-PCS; principal; 2017-04-11 14:00)
DX: G91.2 (Idiopathic) normal pressure hydrocephalus (principal); E86.0 Dehydration; I10 Essential (primary) hypertension; D72.829 Elevated white blood cell count, unspecified; R53.1 Weakness; R00.0 Tachycardia, unspecified; E78.5 Hyperlipidemia, unspecified; R26.89 Other abnormalities of gait and mobility; G20 Parkinson's disease; N40.0 Benign prostatic hyperplasia without lower urinary tract symptoms; H61.23 Impacted cerumen, bilateral; I25.10 Atherosclerotic heart disease of native coronary artery without angina pectoris; Z98.61 Coronary angioplasty status
CPT/HCPCS: 36415; 36430; 62272; 70260-TC; 70450-TC; 70551-TC; 72070-TC; 72100-TC; 72141-TC; 72148-TC; 74000-TC; 76000-TC; 76098-TC; 80048; 80053; 80061; 81003; 82248; 82550; 82607; 82945; 83036; 83721; 84157; 84484; 85025; 85027; 85610; 85730; 86850; 86900; 86901; 87040; 87070; 87086; 87205; 87899; 89050; 93005; 93010; 93225; 93226; 93306-TC; 94760; 97116-GP; 97162-GP; 97163-GP; 97164-GP; 99283-25; J1644; P9034; P9038